=== PATIENT | female | born 1970 | race African-American/Black ===

== ENCOUNTER → 2017-03-02 | Outpatient (CLI) | payer OTHER ==
[2016-06-30 14:00] VITALS: BP 156/95
[~2017-03-02] MED LIST: AMLO5TAB2 PO; CETI10TA22 PO; CIPR250T30 PO; CRESTOR40 MG PO; HYDR-971 PO; HYDR12.53 PO; LISI1TAB7 PO; LISI2.5T PO; LISINOPRIL; LOSA1TAB19 PO; LOSA50TA6 PO; OMEP1CAP24 PO; OMEP20CA9 PO; ONDA4TAB10 SL; PHEN37.53 PO; POTA20TA4 PO; TIZA4CAP3 PO; TRAM-48 PO; ZANAFLEX
--- NOTE | 2017-03-02 15:04 | RAD ---
Right lower extremity deep venous ultrasound 03/02/2017 Indication: Pain x1 week Discussion: Ultrasound evaluation of the veins of the right lower extremity was performed. Evaluation includes color Doppler imaging, evaluation of venous compressibility. Evaluation of augmentable blood flow. No evidence of deep venous thrombosis involving the right lower extremity is identified. Interrogated deep veins are compressible and demonstrate augmentable blood flow. Small popliteal fossa cyst noted. Impression: No evidence of deep venous thrombosis involving the right lower extremity
== END | disposition home or self-care (01) ==
LOC: US 13:44
PROVIDERS: ATTEND Family Medicine
DX: M71.21 Synovial cyst of popliteal space [Baker], right knee (principal); R10.31 Right lower quadrant pain
CPT/HCPCS: 93971

== ENCOUNTER → 2017-10-27 | Outpatient (CLI) | payer OTHER ==
[2016-06-30 14:00] VITALS: BP 156/95
[2017-10-27 15:59] LABS: BASO % 1 % (0-3); EOS # 0.2 x10^3/uL (0.0-0.7); EOS % 3 % (0-3); HEMATOCRIT 41.5 % (36.0-47.0); LYMPH # 1.5 x10^3/uL (1.0-4.8); LYMPH % 25 % (24-48); MEAN CORPUSCULAR HEMOGLOBIN 28 pg (25-35); MEAN CORPUSCULAR HGB CONC 34 g/dL (31-37); MEAN CORPUSCULAR VOLUME 84 fL (79-100); MONO # 0.4 x10^3/uL (0.0-1.1); MONO % 7 % (0-9); NEUT # 3.8 x10^3uL (1.8-7.7); NEUT % 65 % (31-73); PLATELET COUNT 249 x10^3/uL (140-400); RED BLOOD COUNT 4.93 x10^6/uL (3.50-5.40); RED CELL DISTRIBUTION WIDTH 13.7 % (11.5-14.5); WHITE BLOOD COUNT 5.9 x10^3/uL (4.0-11.0)
[2017-10-27 16:06] LABS: ALBUMIN 3.6 g/dL (3.4-5.0); CALCIUM 9.1 mg/dL (8.5-10.1); CREATININE 0.8 mg/dL (0.6-1.0); DIRECT BILIRUBIN 0.1 mg/dL (0.0-0.2); GFR 92.6; POTASSIUM 3.3 mmol/L (3.5-5.1); TOTAL BILIRUBIN 0.4 mg/dL (0.2-1.0); TOTAL PROTEIN 7.8 g/dL (6.4-8.2)
[2017-10-27 17:53] LABS: SEDIMENTATION RATE 22 (0-25)
== END | disposition home or self-care (01) ==
LOC: PMG 15:11
PROVIDERS: ATTEND Physician Assistant
DX: K85.90 Acute pancreatitis without necrosis or infection, unspecified (principal); I10 Essential (primary) hypertension; E11.9 Type 2 diabetes mellitus without complications; E78.00 Pure hypercholesterolemia, unspecified; E87.6 Hypokalemia; K21.9 Gastro-esophageal reflux disease without esophagitis
CPT/HCPCS: 36415; 80048; 80076; 82150; 82977; 83690; 85025; 85651

== ENCOUNTER 2017-11-22 13:07 | Inpatient (IN) | payer OTHER ==
[~2017-11-22] VITALS: Ht 170.2 cm; Wt 136.2 kg
--- NOTE | 2017-11-22 13:28 | PHYS DOC ---
Past History Past Medical History: Diverticulitis, Diabetes, Hypertension, IBS Past Surgical History: Appendectomy, Hysterectomy, Tonsillectomy, Other Alcohol Use: None Drug Use: None Adult General Chief Complaint Chief Complaint: chest pain and abdominal pain. HPI HPI 47-year-old female presenting to the emergency department today with chest pain that started on Monday, November 20. It is sharp shooting pain that is dull and achy. It is nonradiating intermittent and comes and goes. She has a history of diabetes and high blood pressure. Her abdominal pain started yesterday. It is a dull aching pain. It is nonradiating moderate intermittent and associated with black stools that started on Monday. She denies fevers chills nausea vomiting. Review of systems is negative for fevers chills vomiting. She denies loss of consciousness or she denies sweatiness of the skin. All other review of systems is negative unless otherwise noted in history of present illness. ED course: 47-year-old female presenting with chest pain and abdominal pain. She is afebrile on arrival with normal heart rate. On exam her abdomen is soft and nontender. No rebound tenderness or guarding. Lungs are clear bilaterally. Normal heart sounds. She is well-appearing and alert. EKG along with blood work obtained. IV fluids given. EKG shows sinus rhythm with a regular rate. ST segments show mild ST depression in the leads V 5 and V[address] Otherwise no ST segment elevation. Blood work obtained which shows an elevated d-dimer. CBC within normal limits. Glucose is elevated at 196. Patient has known diabetes. Potassium mildly low. We will give the oral potassium repletion here in the emergency department. CT the abdomen below. Differential given by radiologist and could be completely incidental finding. We will refer the patient to outpatient GI for evaluation for this finding. Given her chest pain a and multiple risk factors for heart disease we will admit the patient for serial troponins and cardiac consultation. She was then admitted to Dr. Toth for further treatment and care. Review of Systems Review of Systems SEE ABOVE. Allergies Allergies Allergies Coded Allergies Type Severity Reaction Last Updated Verified No Known Drug Allergies 11/20/13 No Physical Exam Physical Exam SEE ABOVE Constitutional: Well developed, well nourished, no acute distress, non-toxic appearance. HENT: Normocephalic, atraumatic, bilateral external ears normal, oropharynx moist, no oral exudates, nose normal. Eyes: PERRLA, EOMI, conjunctiva normal, no discharge. [] Neck: Normal range of motion, no tenderness, supple, no stridor. Cardiovascular:Heart rate regular rhythm, no murmur Lungs & Thorax: Bilateral breath sounds clear to auscultation Abdomen: Bowel sounds normal, soft, no tenderness, no masses, no pulsatile masses. [] Skin: Warm, dry, no erythema, no rash. Back: No tenderness, no CVA tenderness. [] Extremities: No tenderness, no cyanosis, no clubbing, ROM intact, no edema. Neurologic: Alert and oriented X 3, normal motor function, normal sensory function, no focal deficits noted. [] Psychologic: Affect normal, judgement normal, mood normal. EKG EKG [] Radiology/Procedures Radiology/Procedures IMPRESSION: 1. There is haziness of the central mesentery with several upper limits of normal in size mesenteric lymph nodes. Considerations include sclerosing mesenteritis, sequela of peritonitis, or clinically insignificant incidental finding. 2. Hepatomegaly. Fatty infiltration of the liver. 3. Mild distal colon diverticulosis without diverticulitis. 4. Trace pelvic free fluid. [] Course & Med Decision Making Course & Med Decision Making Pertinent Labs and Imaging studies reviewed. (See chart for details) [] Dragon Disclaimer Dragon Disclaimer This electronic medical record was generated, in whole or in part, using a voice recognition dictation system. Departure Departure: Impression: Primary Impression: Abdominal pain Additional Impressions: Chest pain Hypokalemia Disposition: ADMITTED INPATIENT Admitting Physician: Jane Toth Condition: STABLE Referrals: DULCE MIRAMONTES (PCP) Problem Qualifiers LIZ IWLLIS MD Nov 22, 2017 13:27
[2017-11-22] MEDS ORDERED: IV NORMAL SALINE 500ML 500 ML IV ONE (13:30)
--- NOTE | 2017-11-22 13:30 | EKG ---
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
[2017-11-22 13:54] LABS: BASO % 1 % (0-3); EOS # 0.2 x10^3/uL (0.0-0.7); EOS % 3 % (0-3); HEMATOCRIT 40.4 % (36.0-47.0); HEMOGLOBIN 13.6 g/dL (12.0-15.5); LYMPH # 1.9 x10^3/uL (1.0-4.8); LYMPH % 32 % (24-48); MEAN CORPUSCULAR HEMOGLOBIN 28 pg (25-35); MEAN CORPUSCULAR HGB CONC 34 g/dL (31-37); MEAN CORPUSCULAR VOLUME 85 fL (79-100); MONO # 0.4 x10^3/uL (0.0-1.1); MONO % 7 % (0-9); NEUT # 3.5 x10^3uL (1.8-7.7); NEUT % 58 % (31-73); PLATELET COUNT 246 x10^3/uL (140-400); RED BLOOD COUNT 4.78 x10^6/uL (3.50-5.40); RED CELL DISTRIBUTION WIDTH 13.7 % (11.5-14.5); WHITE BLOOD COUNT 6.1 x10^3/uL (4.0-11.0)
[2017-11-22 14:00] LABS: FECAL OB PT NEGATIVE (NEG)
[2017-11-22] MEDS ORDERED: FAMOTIDINE 20 MG/2 ML VIAL IVP ONE (14:00)
[2017-11-22 14:03] LABS: PREG TEST PT QUAL NEGATIVE (NEG)
[2017-11-22 14:03] LABS: BILIRUBIN,URINE NEG (NEG); CLARITY,URINE CLEAR; COLOR,URINE YELLOW; GLUCOSE,URINE NEG (NEG); NITRITE,URINE NEG (NEG); RBC,URINE 0 /HPF (0-2); UROBILINOGEN,URINE 0.2 mg/dL (0.2 mg/dL)
[2017-11-22 14:04] LABS: BACTERIA,URINE FEW /HPF (0-FEW); SQUAMOUS EPITHELIAL CELL,UR OCC /LPF
[2017-11-22 14:08] LABS: ALBUMIN 3.4 g/dL (3.4-5.0); CALCIUM 9.1 mg/dL (8.5-10.1); CREATININE 0.8 mg/dL (0.6-1.0); DIRECT BILIRUBIN 0.1 mg/dL (0.0-0.2); GFR 92.6; POTASSIUM 3.3 mmol/L (3.5-5.1); TOTAL BILIRUBIN 0.5 mg/dL (0.2-1.0); TOTAL PROTEIN 7.4 g/dL (6.4-8.2)
[2017-11-22] MEDS ORDERED: IOHEXOL 300 MG/ML 75 ML VIAL. IV ONE (14:30)
--- NOTE | 2017-11-22 14:50 | RAD ---
PQRS Compliance Statement: One or more of the following individualized dose reduction techniques were utilized for this examination: 1. Automated exposure control 2. Adjustment of the mA and/or kV according to patient size 3. Use of iterative reconstruction technique CT angiography chest with contrast 11/22/2017 INDICATION: Elevated d-dimer, shortness of breath. COMPARISON: CT chest October 11, 2009. TECHNIQUE: Axial CT images of the chest were obtained after the intravenous administration of 75 cc nonionic contrast. Coronal and sagittal reformats are provided. Maximum intensity projection images of the thoracic vasculature are provided. FINDINGS: The thyroid gland is normal in appearance. There are no pathologically enlarged axillary, mediastinal or hilar lymph nodes. The heart size is within normal limits. Trace pericardial fluid is present, likely physiologic. There is adequate opacification of the pulmonary arterial system. There are no filling defects within the pulmonary arterial system to suggest acute or chronic pulmonary embolus. There are no suspicious solid noncalcified pulmonary nodules. There are no pleural effusions. No pulmonary vascular congestion or pneumothorax. Visualized portions of the upper abdomen are within normal limits. There may be mild hepatic steatosis. Moderate anterior marginal osteophytosis is identified throughout the thoracic spine. No suspicious osseous lesions are visualized. IMPRESSION: There is no evidence for acute or chronic pulmonary embolism. Mild hepatic steatosis. Electronically signed by: Roxana Smith MD (11/22/2017 2:47 PM) [id number]
--- NOTE | 2017-11-22 14:55 | RAD ---
PQRS Compliance Statement: One or more of the following individualized dose reduction techniques were utilized for this examination: 1. Automated exposure control 2. Adjustment of the mA and/or kV according to patient size 3. Use of iterative reconstruction technique CT ABD PELV W/ IV CONTRST ONLY Clinical Indication: ABD PAIN FOR 1 MONTH OFF AND ON Comparison: CT abdomen and pelvis with contrast, June 30, 2016. CT angiogram chest, November 22, 2017. Findings: Please refer to separate dictated CT chest report for lung base findings. Fatty infiltration of the liver. Hepatomegaly. Cholecystectomy. Spleen, pancreas, adrenal glands, abdominal aorta, and kidneys are normal. More conspicuous than on the prior study there is haziness of the central mesentery with several upper limits of normal in size mesenteric lymph nodes. There is a pseudocapsule appearance. Stomach unremarkable. No dilated small bowel. There is motion artifact in the midabdomen. There are a few diverticula of the descending colon. Appendectomy. No colon wall thickening. Urinary bladder is not well distended, accentuating wall thickness. Left adnexal cyst is unchanged from prior study. There is trace pelvic free fluid, probably physiologic if patient is premenopausal. Degenerative spondylosis of the thoracolumbar spine. IMPRESSION: 1. There is haziness of the central mesentery with several upper limits of normal in size mesenteric lymph nodes. Considerations include sclerosing mesenteritis, sequela of peritonitis, or clinically insignificant incidental finding. 2. Hepatomegaly. Fatty infiltration of the liver. 3. Mild distal colon diverticulosis without diverticulitis. 4. Trace pelvic free fluid. Electronically signed by: Mark Najera MD (11/22/2017 2:52 PM) [id number]
[2017-11-22] MEDS ORDERED: POTASSIUM CHLORIDE 20 MEQ/15 ML ORAL LIQUID. PO ONE (16:15)
[2017-11-22] MEDS ORDERED: VALS80TA28 PO (16:21)
[2017-11-22] MEDS ORDERED: TRAM50TA PO (16:21)
[2017-11-22] MEDS ORDERED: GLIM2TAB2 PO (16:21)
[2017-11-22] MEDS ORDERED: METF10003 PO (16:33)
[2017-11-22] MEDS ORDERED: CRESTOR5 MG PO (16:33)
[2017-11-22] MEDS ORDERED: TIZA6CAP PO (16:34)
[2017-11-22 16:48] VITALS: BP 166/99
[2017-11-22] MEDS ORDERED: IV NORMAL SALINE 1,000ML 1,000 ML IV SCH (17:28)
[2017-11-22] MEDS ORDERED: ONDANSETRON PF 4 MG/2 ML VIAL. IV PRN ×2 (17:30→18:00)
[2017-11-22] MEDS ORDERED: MORPHINE SULFATE 2 MG/ML DISP.SYRIN. IV PRN (17:30)
[2017-11-22] MEDS: MORPHINE SULFATE 4 MG/ML DISP.SYRIN. IV PRN ×2 (18:10→22:44)
[2017-11-22] MEDS ORDERED: CONTRAST GIVEN MC PRN (18:15)
[2017-11-22] MEDS: GLIMEPIRIDE 2 MG TABLET PO SCH (18:42)
[2017-11-22] MEDS: amLODIPine BESYLATE 5 MG TABLET PO SCH (18:43)
[2017-11-22] MEDS: LOSARTAN 50 MG TABLET. PO SCH (18:43)
--- NOTE | 2017-11-22 18:48 | NUR ---
PT KARO STEWART WAS ADMITTED TO ROOM 119 FROM ED BY EMS FOR CP/ABDOMINAL PAIN. Pt complaining of 5/10 abdominal pain. States LBM 11/20. Bowel sounds present, lungs clear but diminished. Heart tones normal. SR on tele. Pt up walking to bathroom. Medications restarted. Will continue to monitor.
[2017-11-22 19:30] VITALS: BP 135/84
[2017-11-22 22:51] VITALS: BP 139/85
[2017-11-23] MEDS: MORPHINE SULFATE 4 MG/ML DISP.SYRIN. IV PRN ×4 (02:57→19:47)
[2017-11-23 06:13] LABS: BASO % 1 % (0-3); EOS # 0.3 x10^3/uL (0.0-0.7); EOS % 4 % (0-3); HEMOGLOBIN 13.4 g/dL (12.0-15.5); LYMPH # 1.9 x10^3/uL (1.0-4.8); LYMPH % 31 % (24-48); MEAN CORPUSCULAR HEMOGLOBIN 28 pg (25-35); MEAN CORPUSCULAR HGB CONC 34 g/dL (31-37); MEAN CORPUSCULAR VOLUME 84 fL (79-100); MONO # 0.4 x10^3/uL (0.0-1.1); MONO % 7 % (0-9); NEUT # 3.6 x10^3uL (1.8-7.7); NEUT % 58 % (31-73); PLATELET COUNT 255 x10^3/uL (140-400); RED BLOOD COUNT 4.74 x10^6/uL (3.50-5.40); WHITE BLOOD COUNT 6.1 x10^3/uL (4.0-11.0)
[2017-11-23 06:21] LABS: C REACTIVE PROTEIN 5.1 mg/L (0-3.3)
[2017-11-23 06:25] LABS: ALBUMIN 3.1 g/dL (3.4-5.0); ALBUMIN/GLOBULIN RATIO 0.8 (1.0-1.7); CALCIUM 8.6 mg/dL (8.5-10.1); CREATININE 0.7 mg/dL (0.6-1.0); GFR 108.1; POTASSIUM 3.1 mmol/L (3.5-5.1); TOTAL BILIRUBIN 0.5 mg/dL (0.2-1.0)
[2017-11-23 07:02] VITALS: BP 140/88
[2017-11-23] MEDS ORDERED: POTASSIUM CHLORIDE 20 MEQ TABLET.ER. PO ONE ×2 (07:30→12:00)
[2017-11-23] MEDS: LOSARTAN 50 MG TABLET. PO SCH (08:38)
[2017-11-23] MEDS: ATORVASTATIN CALCIUM 20 MG TABLET PO SCH (08:38)
[2017-11-23] MEDS: amLODIPine BESYLATE 5 MG TABLET PO SCH (08:39)
[2017-11-23] MEDS: tiZANidine 4 MG TABLET. PO PRN ×2 (08:44→22:12)
[2017-11-23] MEDS ORDERED: LOSARTAN 50 MG TABLET. PO SCH (09:00)
[2017-11-23] MEDS ORDERED: GLIMEPIRIDE 2 MG TABLET PO SCH (09:00)
[2017-11-23] MEDS ORDERED: amLODIPine BESYLATE 5 MG TABLET PO SCH (09:00)
[2017-11-23] MEDS: POTASSIUM CHLORIDE 20MEQ 100 ML IV SCH ×2 (09:30→11:30)
--- NOTE | 2017-11-23 09:39 | NUR ---
Pt is alert and oriented x4. Has complaints of middle abdominal pain, back pain and headache. Morphine and tizanidine administered and heating pad applied to back. Held patients oral DM medications due to NPO status. Will continue to monitor.
--- NOTE | 2017-11-23 10:14 | PDOC2 ---
CONSULT Date of Admission DATE: 11/23/17 TIME: 10:08 Reason for Consult: cp Problem List Problems Medical Problems: (1) Abdominal pain Status: Acute (2) Chest pain Status: Acute (3) Hypokalemia Status: Acute History of Present Illness 47 y/o female with history of hypertension, hyperlipidemia and diabetes presents with complaints of abdominal pain and chest pressure. She reports occasional chest heaviness and palpitations which seem to be unrelated to exertion. She is able to exercise on a treadmill without chest discomfort. She reports abdominal pain started day before yesterday and then she began to have chest heaviness and mild dyspnea that waxed and waned. Yesterday am while getting ready for work the discomfort seemed to increase so she presented for evaluation. She denies any congestive symptoms but does report some mild edema in her extremities that worsens towards the end of the day. Past Medical History MPI 10/04/13 large, moderate intensity, reversible mid anterolateral wall defect consistent with ischemia Echo 10/15/13 - Normal LVEF 55-60%, normal wall motion trace MR, trace to mild TR PAS 33 mmHg Cath 10/31/13 LM - ostial 20% LAD - normal LCX - normal RCA - normal Cardiovascular: HTN, hyperipidemia GI: GERD, Other (pancreatitis ) Musculoskeletal: Other (mid to low back pain) Endocrine: Diabetes, Other (thyroid nodules) Past Surgical History unilateral oophorectomy Past Surgical History: Appendectomy, Hysterectomy Family History hypertension, cancer Social History non smoker, social ETOH, no illicit drug use Current Medications Current Medications Sodium Chloride 500 ml @ 0 mls/hr 1X ONCE IV Last administered on 11/22/17at 13 :30; Start 11/22/17 at 13:30; Stop 11/22/17 at 13:38; Status DC Famotidine (Pepcid Vial) 20 mg 1X ONCE IVP Last administered on 11/22/17at 13: 55; Start 11/22/17 at 14:00; Stop 11/22/17 at 14:01; Status DC Fentanyl Citrate (Fentanyl 2ml Vial) 25 mcg 1X ONCE IV Last administered on at 13:56; Start 11/22/17 at 14:00; Stop 11/22/17 at 14:01; Status DC Iohexol (Omnipaque 300 Mg/ml) 75 ml 1X ONCE IV Last administered on 11/22/17at 14:26; Start 11/22/17 at 14:30; Stop 11/22/17 at 14:31; Status DC Fentanyl Citrate (Fentanyl 2ml Vial) 25 mcg PRN Q30MIN PRN IV SEVERE PAIN Last administered on 11/22/17at 16:06; Start 11/22/17 at 16:00 Potassium Chloride (KCl Oral Soln) 40 meq 1X ONCE PO Last administered on 11/22at 16:30; Start 11/22/17 at 16:15; Stop 11/22/17 at 16:16; Status DC Ondansetron HCl (Zofran) 4 mg PRN Q4HRS PRN IV NAUSEA/VOMITING; Start 11/22/17 at 17:30; Stop 11/23/17 at 17:29; Status Cancel Morphine Sulfate (Morphine 2mg Syringe) 2 mg PRN Q2HR PRN IV PAIN; Start at 17:30; Stop 11/23/17 at 17:29; Status Cancel Sodium Chloride 1,000 ml @ 100 mls/hr Q10H IV ; Start 11/22/17 at 17:28; Stop 11/22/17 at 18:06; Status DC Tramadol HCl (Ultram) 50 mg PRN Q6HRS PRN PO PAIN; Start 11/22/17 at 18:00 Amlodipine Besylate (Norvasc) 5 mg DAILY PO ; Start 11/23/17 at 09:00; Stop at 09:00; Status DC Glimepiride (Amaryl) 2 mg DAILY PO ; Start 11/23/17 at 09:00; Stop 11/23/17 at 09:00; Status DC Metformin HCl (Glucophage) 1,000 mg BIDWMEALS PO ; Start 11/24/17 at 17:00 Atorvastatin Calcium (Lipitor) 20 mg DAILY PO Last administered on 11/23/17at 08 :38; Start 11/23/17 at 09:00 Tizanidine HCl (Zanaflex) 6 mg PRN Q8HRS PRN PO MUSCLE SPASMS Last administered on 11/23/17at 08:44; Start 11/22/17 at 18:15 Losartan Potassium (Cozaar) 50 mg DAILY PO ; Start 11/23/17 at 09:00; Stop 7/26 /18 at 09:00; Status DC Morphine Sulfate (Morphine 4mg Syringe) 4 mg PRN Q2HR PRN IV PAIN Last administered on 11/23/17at 07:12; Start 11/22/17 at 18:00; Stop 11/23/17 at 07:16 ; Status DC Ondansetron HCl (Zofran) 4 mg PRN Q6HRS PRN IV NAUSEA/VOMITING; Start 11/22/17 at 18:00 Info (Do NOT chart on this entry -- for MONITORING) 1 each PRN DAILY PRN MC SEE COMMENTS; Start 11/22/17 at 18:15; Stop 11/24/17 at 18:14 Amlodipine Besylate (Norvasc) 5 mg DAILY PO Last administered on 11/23/17at 08: 39; Start 11/22/17 at 18:30 Glimepiride (Amaryl) 2 mg DAILY PO Last administered on 11/22/17at 18:42; Start 11/22/17 at 18:30 Losartan Potassium (Cozaar) 50 mg DAILY PO Last administered on 11/23/17at 08:38 ; Start 11/22/17 at 18:30 Potassium Chloride (Klor-Con) 40 meq 1X ONCE PO ; Start 11/23/17 at 07:30; Stop 11/23/17 at 07:31; Status DC Morphine Sulfate (Morphine 4mg Syringe) 4 mg PRN Q4HRS PRN IV PAIN; Start 11/23 at 07:30 Potassium Chloride 100 ml @ 50 mls/hr Q2H IV ; Start 11/23/17 at 09:30; Stop at 13:29 Active Scripts Active Reported Tizanidine Hcl (Tizanidine HCl) 6 Mg Capsule 6 Mg PO PRN PRN Crestor (Rosuvastatin Calcium) 5 Mg Tablet 1 Tab PO DAILY Metformin Hcl 1,000 Mg Tablet 1 Tab PO BID Tramadol Hcl (Tramadol HCl) 50 Mg Tablet 50 Mg PO PRN PRN Valsartan 80 Mg Tablet 80 Mg PO DAILY Glimepiride 2 Mg Tablet 2 Mg PO DAILY Amlodipine Besylate 5 Mg Tablet 1 Tab PO DAILY Allergies: Coded Allergies: No Known Drug Allergies (Unverified , 11/20/13) Review of System as per HPI with addition of recent black stools and acid reflux General: Alert, Oriented X3, Cooperative, No acute distress HEENT: Atraumatic, EOMI, Mucous membr. moist/pink Lungs: Clear to auscultation Heart: Regular rate, Normal S1, Normal S2 Abdomen: Normal bowel sounds, Soft Extremities: No cyanosis, No edema, Normal pulses Neuro: Normal speech, Strength at 5/5 X4 ext Psych/Mental Status: Mental status NL, Mood NL VITALS Vital Signs Date Time Temp Pulse Resp B/P (MAP) Pulse Ox O2 Delivery O2 Flow Rate FiO2 11/23/17 08:39 69 140/88 11/23/17 08:20 Room Air 11/23/17 07:12 96 11/23/17 07:02 97.8 20 Labs Laboratory Tests Test 11/22/17 13:20 11/22/17 13:30 11/22/17 21:10 11/22/17 23:30 Urine Collection Type Unknown Urine Color Yellow Urine Clarity Clear Urine pH 6.0 Urine Specific [place] 1.020 Urine Protein 30 mg/dl (NEG-TRACE) Urine Glucose (UA) Neg mg/dL (NEG) Urine Ketones (Stick) Neg mg/dL (NEG) Urine Blood Neg (NEG) Urine Nitrite Neg (NEG) Urine Bilirubin Neg (NEG) Urine Urobilinogen Dipstick 0.2 mg/dL (0.2 mg/dL) Urine Leukocyte Esterase Neg (NEG) Urine RBC 0 /HPF (0-2) Urine WBC 1-4 /HPF (0-4) Urine Squamous Epithelial Cells Occ /LPF Urine Bacteria Few /HPF (0-FEW) Urine Mucus Marked /LPF White Blood Count 6.1 x10^3/uL (4.0-11.0) Red Blood Count 4.78 x10^6/uL (3.50-5.40) Hemoglobin 13.6 g/dL (12.0-15.5) Hematocrit 40.4 % (36.0-47.0) Mean Corpuscular Volume 85 fL (79-100) Mean Corpuscular Hemoglobin 28 pg (25-35) Mean Corpuscular Hemoglobin Concent 34 g/dL (31-37) Red Cell Distribution Width 13.7 % (11.5-14.5) Platelet Count 246 x10^3/uL (140-400) Neutrophils (%) (Auto) 58 % (31-73) Lymphocytes (%) (Auto) 32 % (24-48) Monocytes (%) (Auto) 7 % (0-9) Eosinophils (%) (Auto) 3 % (0-3) Basophils (%) (Auto) 1 % (0-3) Neutrophils # (Auto) 3.5 x10^3uL (1.8-7.7) Lymphocytes # (Auto) 1.9 x10^3/uL (1.0-4.8) Monocytes # (Auto) 0.4 x10^3/uL (0.0-1.1) Eosinophils # (Auto) 0.2 x10^3/uL (0.0-0.7) Basophils # (Auto) 0.0 x10^3/uL (0.0-0.2) D-Dimer (Ya) 1.20 mg/L (0.00-0.50) Stool Occult Blood Negative (NEG) Sodium Level 139 mmol/L (136-145) Potassium Level 3.3 mmol/L (3.5-5.1) Chloride Level 102 mmol/L (98-107) Carbon Dioxide Level 30 mmol/L (21-32) Anion Gap 7 (6-14) Blood Urea Nitrogen 9 mg/dL (7-20) Creatinine 0.8 mg/dL (0.6-1.0) Estimated GFR (Cockcroft-Gault) 92.6 Glucose Level 196 mg/dL (70-99) Calcium Level 9.1 mg/dL (8.5-10.1) Total Bilirubin 0.5 mg/dL (0.2-1.0) Direct Bilirubin 0.1 mg/dL (0.0-0.2) Aspartate Amino Transf (AST/SGOT) 21 U/L (15-37) Alanine Aminotransferase (ALT/SGPT) 36 U/L (14-59) Alkaline Phosphatase 113 U/L (46-116) Troponin I Quantitative < 0.017 ng/mL (0-0.055) < 0.017 ng/mL (0-0.055) < 0.017 ng/mL (0-0.055) Total Protein 7.4 g/dL (6.4-8.2) Albumin 3.4 g/dL (3.4-5.0) Lipase 148 U/L (73-393) Serum Test, Qualitative Negative (NEG) Test 11/23/17 05:45 White Blood Count 6.1 x10^3/uL (4.0-11.0) Red Blood Count 4.74 x10^6/uL (3.50-5.40) Hemoglobin 13.4 g/dL (12.0-15.5) Hematocrit 40.0 % (36.0-47.0) Mean Corpuscular Volume 84 fL (79-100) Mean Corpuscular Hemoglobin 28 pg (25-35) Mean Corpuscular Hemoglobin Concent 34 g/dL (31-37) Red Cell Distribution Width 14.0 % (11.5-14.5) Platelet Count 255 x10^3/uL (140-400) Neutrophils (%) (Auto) 58 % (31-73) Lymphocytes (%) (Auto) 31 % (24-48) Monocytes (%) (Auto) 7 % (0-9) Eosinophils (%) (Auto) 4 % (0-3) Basophils (%) (Auto) 1 % (0-3) Neutrophils # (Auto) 3.6 x10^3uL (1.8-7.7) Lymphocytes # (Auto) 1.9 x10^3/uL (1.0-4.8) Monocytes # (Auto) 0.4 x10^3/uL (0.0-1.1) Eosinophils # (Auto) 0.3 x10^3/uL (0.0-0.7) Basophils # (Auto) 0.0 x10^3/uL (0.0-0.2) Erythrocyte Sedimentation Rate 20 (0-25) Sodium Level 139 mmol/L (136-145) Potassium Level 3.1 mmol/L (3.5-5.1) Chloride Level 103 mmol/L (98-107) Carbon Dioxide Level 30 mmol/L (21-32) Anion Gap 6 (6-14) Blood Urea Nitrogen 8 mg/dL (7-20) Creatinine 0.7 mg/dL (0.6-1.0) Estimated GFR (Cockcroft-Gault) 108.1 BUN/Creatinine Ratio 11 (6-20) Glucose Level 181 mg/dL (70-99) Calcium Level 8.6 mg/dL (8.5-10.1) Total Bilirubin 0.5 mg/dL (0.2-1.0) Aspartate Amino Transf (AST/SGOT) 17 U/L (15-37) Alanine Aminotransferase (ALT/SGPT) 35 U/L (14-59) Alkaline Phosphatase 103 U/L (46-116) C-Reactive Protein 5.1 mg/L (0-3.3) Total Protein 7.0 g/dL (6.4-8.2) Albumin 3.1 g/dL (3.4-5.0) Albumin/Globulin Ratio 0.8 (1.0-1.7) Lipase 163 U/L (73-393) Images EKG - sinus rhythm with no acute ischemic findings CT abd/pelvis IMPRESSION: 1. There is haziness of the central mesentery with several upper limits of normal in size mesenteric lymph nodes. Considerations include sclerosing mesenteritis, sequela of peritonitis, or clinically insignificant incidental finding. 2. Hepatomegaly. Fatty infiltration of the liver. 3. Mild distal colon diverticulosis without diverticulitis. 4. Trace pelvic free fluid. Chest CTA - IMPRESSION: There is no evidence for acute or chronic pulmonary embolism. Mild hepatic steatosis. Assessment/Plan 1. Chest pain - PR ruled out, no acute EKG changes. Prior abn MPI with minimal coronary disease by cath as described above. ? secondary to coronary vasospasm. Will check echo and add nitrates. Consider further ischemic workup when medical evaluation/treatment is complete. 2. Hypertension - continue current medications await echo. 3. hyperlipidemia - check lipids 4. abd pain with abn CT as above - per NICOLE REN APRN Nov 23, 2017 10:14
[2017-11-23 10:54] VITALS: BP 128/80
[2017-11-23] MEDS: GLIMEPIRIDE 2 MG TABLET PO SCH (11:50)
[2017-11-23] MEDS: ISOSORBIDE MONONITRATE ER 30 MG TAB.ER.24H PO SCH (11:50)
--- NOTE | 2017-11-23 12:48 | HP ---
ADMIT DATE: 11/22/2017 HISTORY OF PRESENT ILLNESS: The patient is a 47-year-old -[place] female patient who came to the Emergency Room complaining of abdominal pain, mostly in the epigastric and both right upper and left quadrant radiating to the back that started on Monday. Did complain of nausea, but no vomiting. Her last bowel movement was on Monday and it was black according to her. She stated that she had similar pain a month ago. At that time, she was admitted to [facility] and was diagnosed with acute pancreatitis that apparently felt to be secondary to Victoza that was discontinued. She was treated initially with clear liquid diet and then low fat diet. She stated the pain started at rest, comes and goes, it is on more often than off, aggravated by movement, but not associated with any shortness of breath or diaphoresis. She did describe that she has difficulty taking a deep breath, but denied any radiation to her left arm, left shoulder, or left side of the neck. She also has chest pain that also started on Monday that she described as pressure, not associated with any shortness of breath, diaphoresis, or radiation. Again, it comes and goes, made worse by movement. She was extensively investigated in the Emergency Room and has had lab work. Her white cell count was normal. Her chemistry also was unremarkable except for hypokalemia. Her D-dimer was high at 1.2. She underwent CT angio of the chest, which basically showed no evidence of acute or chronic pulmonary embolism. She has mild hepatic steatosis. CT scan of the abdomen and pelvis with IV contrast showed that there is haziness of the central mesentery with several upper limit of normal in size mesenteric lymph nodes. Considerations include sclerosing mesenteritis, E. coli peritonitis, or clinically insignificant incidental finding. She also has hepatomegaly with fatty infiltration of the liver, mild distal colon diverticulosis without diverticulitis and trace pelvic free fluid. She has had 3 sets of cardiac enzymes that has ruled out myocardial infarction. PAST MEDICAL HISTORY: Significant for type 2 diabetes, hypertension, hyperlipidemia. Apparently, she had a stress test done in 2013 which was strongly positive after which she underwent left heart catheterization and showed mostly normal coronary artery disease except 20% stenosis in her left circumflex. PAST SURGICAL HISTORY: Significant for left heart catheterization, cholecystectomy, appendectomy, tubal ligation, right oophorectomy, and hysterectomy. ALLERGIES: She has no known drug allergies. MEDICATIONS: She is currently on following medications: She is on tizanidine 6 mg p.o. q.8 hourly, Crestor 5 mg at bedtime, amlodipine besylate 5 mg daily, valsartan 80 mg daily, tramadol 50 mg as needed, metformin 1000 mg twice a day, and glimepiride 2 mg daily. REVIEW OF SYSTEMS: The patient denied any blurring of vision. Does have glaucoma and she is scheduled for visual field testing as she has floaters. Denied any cataract or diabetic retinopathy or treatment with laser photocoagulation. Denied any earache, tinnitus, or sensorineural deafness. Denied any nosebleeds, stuffy nose or postnasal drip. Did complain of sore throat, but denied any sore tongue, toothache, hoarseness of voice or difficulty swallowing. Did complain of nausea, but no vomiting. Her last bowel movement was last Monday and was dark black. She denied any dysuria, frequency or hematuria. Did complain of chest pain. Denied any shortness of breath, cough, phlegm or hemoptysis. Denied any chills, rigors, or fever. Denied any dizziness, lightheadedness, or vertigo. PHYSICAL EXAMINATION: GENERAL: On arrival to the Emergency Room, she looked well and was clearly in no apparent respiratory distress. No pallor, jaundice, cyanosis, or thyromegaly. No jugular venous distention. No lower limb edema. VITAL SIGNS: Her heart rate was 67, blood pressure was 166/99, temperature was 97.9, respiratory rate was 18, and oxygen saturation was 98%. HEAD, EYES, EARS, NOSE, AND THROAT: Showed normocephalic, atraumatic. NECK: Supple. HEART: Showed normal first and second heart sounds with no gallop, rub, or murmur. CHEST: Clear to auscultation. No crepitation or rhonchi. ABDOMEN: Distended, soft, nontender. No guarding or rigidity. No organomegaly. Hernial orifice intact. Bowel sounds normal. NEUROLOGIC: She was awake, alert, responding appropriately. All cranial nerves intact. She moves extremities without difficulty and according to her, she is able to ambulate without assistance or assistive devices, although she does have osteoarthritis and Quintero cyst in her right knee. LABORATORY DATA: Her lab work on arrival to the Emergency Room showed a white cell count of 6100, hemoglobin 13.6, hematocrit 40, MCV 85, and platelet count of 246,000 with normal manual differential. Her chemistry showed a serum sodium 139, potassium 3.3, chloride 102, bicarbonate 30, anion gap of 7, BUN 9, creatinine 0.8. Estimated GFR was 92 mL per minute. Her glucose was 196, calcium was 9.1. Total bilirubin, AST, ALT, alkaline phosphatase were normal. Total protein 7.4, albumin 3.4. Her lipase was 148. Serum test was negative. Her D-dimer was high 1.2 mg/dL. Urinalysis showed the urine was yellow, clear with a pH of 6, specific gravity of 1.020. There was trace of protein. The urine was negative for glucose, ketones, blood, nitrite, and leukocyte esterase. There was 0 rbc's, 1-4 wbc's, very few bacteria. Her stool for occult blood was negative. As her D-dimer was high and came with chest pain, she underwent CT angio which basically showed that there is no evidence for acute or chronic pulmonary embolism. Did have mild hepatic steatosis and for her abdominal pain, she has had CT scan of the abdomen and pelvis with IV contrast only that showed that there is haziness to the central mesentery with several upper limit of normal in size mesenteric lymph nodes. Consideration includes sclerosing mesenteritis, E. coli peritonitis, and/or clinically insignificant incidental finding. She also was found to have hepatomegaly with fatty infiltration of the liver, mild distal colon diverticulosis without diverticulitis and trace pelvic free fluid. ASSESSMENT AND PLAN: The patient was admitted to consult the cardiology team given that she has had before stress test that was positive and she has multiple risk factors for coronary artery disease. EBONI RAMÍREZ MD DR: MIGUEL A/thomas JOB#: [id number] / [id number]
[2017-11-23 14:55] VITALS: BP 118/71
[2017-11-23] MEDS ORDERED: PERFLUTREN PROTEIN-A MICROSPHR 0.22 MG/ML 3 ML VIAL. IV ONE (15:30)
--- NOTE | 2017-11-23 17:35 | CARD ---
MR#: [id number] Date of Study: 11/23/2017 Ordering Physician: NICOLE SCANLON, Referring Physician: Rafael BRAY: KINA Galo APPROVED REPORT EXAM: Two-dimensional and M-mode echocardiogram with Doppler and color Doppler. Other Information Quality : GoodHR: 61bpm INDICATION Chest Pain RISK FACTORS Obesity 2D DIMENSIONS Left Atrium(2D)2.9 (1.6-4.0cm)IVSd1.6 (0.7-1.1cm) Aortic Root(2D)2.9 (2.0-3.7cm)LVDd4.0 (3.9-5.9cm) LVOT Diameter2.2 (1.8-2.4cm)PWd1.5 (0.7-1.1cm) LVDs2.1 (2.5-4.0cm)FS (%) 47.6 % SV54.7 mlLVEF(%)79.6 (>50%) Aortic Valve AoV Peak Chinmay.159.4cm/sAoV VTI28.8cm AO Peak GR.10.2mmHgLVOT Peak Chinmay.99.0cm/s LVOT VTI 24.45cmAO Mean GR.5mmHg KAMALA (VMAX)2.37bs6LNC (VTI)3.14cm2 Mitral Valve MV E Uqkubsic45.9cm/sMV DECEL CNHT208kh MV A Ovknxffk58.9cm/sE/A Ratio1.3 Pulmonary Valve PV Peak Fljvinqu199.4cm/sPV Peak Grad.5mmHg LEFT VENTRICLE The left ventricle is normal size. There is moderate concentric left ventricular hypertrophy. The lef t ventricular systolic function is normal and the ejection fraction is within normal range. EF 65% Th ere is normal LV segmental wall motion. The left ventricular diastolic function and filling is normal for age. RIGHT VENTRICLE The right ventricle is normal size. The right ventricular systolic function is normal. ATRIA The left atrium size is normal. The right atrium size is normal. The interatrial septum is intact wit h no evidence for an atrial septal defect or patent foramen ovale as noted on 2-D or Doppler imaging. AORTIC VALVE The aortic valve is thickened but opens well. Doppler and Color Flow revealed no significant aortic r egurgitation. There is no significant aortic valvular stenosis. There is no aortic valvular vegetatio n. MITRAL VALVE The mitral valve is thickened but opens well. There is no evidence of mitral valve prolapse. There is no mitral valve stenosis. Doppler and Color-flow revealed trace mitral regurgitation. TRICUSPID VALVE The tricuspid valve is normal in structure and function. Doppler and Color Flow revealed no tricuspid valve regurgitation noted. There is no tricuspid valve prolapse or vegetation. There is no tricuspid valve stenosis. PULMONIC VALVE The pulmonic valve is not well visualized. Doppler and Color Flow revealed trace to mild pulmonic mayuri vular regurgitation. There is no pulmonic valvular stenosis. GREAT VESSELS The aortic root is normal in size. The IVC was not visualized. PERICARDIAL EFFUSION There is no pleural effusion. There is no evidence of significant pericardial effusion. Critical Notification Critical Value: No <Conclusion> The left ventricular systolic function is normal and the ejection fraction is within normal range. EF 65% There is normal LV segmental wall motion. Signed by : Dontrell Clark, Electronically Approved : 11/23/2017 17:34:30
[2017-11-23 20:21] VITALS: BP 114/71
[2017-11-23] MEDS: traMADol 50 MG TABLET PO PRN (22:12)
[2017-11-23 22:54] VITALS: BP 126/78
[2017-11-24 06:10] VITALS: BP 114/75
[2017-11-24] MEDS: MORPHINE SULFATE 4 MG/ML DISP.SYRIN. IV PRN (06:27)
[2017-11-24] MEDS ORDERED: ISOSORBIDE MONONITRATE ER 30 MG TAB.ER.24H PO SCH (09:00)
[2017-11-24 09:06] LABS: CALCIUM 9.1 mg/dL (8.5-10.1); CREATININE 0.9 mg/dL (0.6-1.0); GFR 80.9; POTASSIUM 3.8 mmol/L (3.5-5.1)
--- NOTE | 2017-11-24 09:09 | PDOC ---
PROGRESS NOTES Diagnosis Problem Problems Medical Problems: (1) Abdominal pain Status: Acute (2) Chest pain Status: Acute (3) Hypokalemia Status: Acute Assessment Problems Medical Problems: (1) Abdominal pain Status: Acute (2) Chest pain Status: Acute (3) Hypokalemia Status: Acute 1. Chest pain - SC ruled out, no acute EKG changes. Echo with normal LV function and wall motion. Prior abnormal MPI followed by cardiac cath which failed to reveal any significant stenosis. Abnormality on MPI possibly secondary to coronary vasospasm. Nitrates added to medical regimen. Plan for outpatient follow up in office 4 weeks after discharge and will re-evaluate symptoms at that time and consider further ischemic workup. If chest pain reoccurs despite antianginal therapy, plan for cardiac cath. 2. Hypertension - controlled on current therapy. 3. Hyperlipidemia - uncontrolled. increase statin and repeat lipids outpatient in 6-8 weeks. 4. abd pain / low grade temp - per PCP 5. hypokalemia - replaced yesterday, labs this am pending. Subjective no new complaints. some continued chest discomfort that is non exertional and has been constant but is slowly improving. no dyspnea. continued abdominal discomfort. Objective Echo - The left ventricular systolic function is normal and the ejection fraction is within normal range. EF 65% There is normal LV segmental wall motion. Vital Signs Date Time Temp Pulse Resp B/P (MAP) Pulse Ox O2 Delivery O2 Flow Rate FiO2 11/24/17 07:46 94 Room Air 11/24/17 06:27 18 11/24/17 06:10 99.7 80 114/75 (88) Intake and Output 11/24/17 07:00 Intake Total 1200 ml Output Total 1650 ml Balance -450 ml Intake Oral 1200 ml Output Urine Total 1650 ml # Voids 2 # Bowel Movements 1 Abdomen: Normal bowel sounds, Soft Heart: Regular rate, Normal S1, Normal S2 Extremities: No cyanosis, No edema, Normal pulses General: Alert, Oriented X3, Cooperative, No acute distress HEENT: Atraumatic, EOMI Lungs: Clear to auscultation, Normal air movement Neuro: Normal speech, Strength at 5/5 X4 ext Psych/Mental Status: Mental status NL, Mood NL Review of Relevant I have reviewed the following items re (where applicable) has been applied. Labs Laboratory Tests Test 11/22/17 13:20 11/22/17 13:30 11/22/17 21:10 11/22/17 23:30 Urine Collection Type Unknown Urine Color Yellow Urine Clarity Clear Urine pH 6.0 Urine Specific [place] 1.020 Urine Protein 30 mg/dl (NEG-TRACE) Urine Glucose (UA) Neg mg/dL (NEG) Urine Ketones (Stick) Neg mg/dL (NEG) Urine Blood Neg (NEG) Urine Nitrite Neg (NEG) Urine Bilirubin Neg (NEG) Urine Urobilinogen Dipstick 0.2 mg/dL (0.2 mg/dL) Urine Leukocyte Esterase Neg (NEG) Urine RBC 0 /HPF (0-2) Urine WBC 1-4 /HPF (0-4) Urine Squamous Epithelial Cells Occ /LPF Urine Bacteria Few /HPF (0-FEW) Urine Mucus Marked /LPF White Blood Count 6.1 x10^3/uL (4.0-11.0) Red Blood Count 4.78 x10^6/uL (3.50-5.40) Hemoglobin 13.6 g/dL (12.0-15.5) Hematocrit 40.4 % (36.0-47.0) Mean Corpuscular Volume 85 fL (79-100) Mean Corpuscular Hemoglobin 28 pg (25-35) Mean Corpuscular Hemoglobin Concent 34 g/dL (31-37) Red Cell Distribution Width 13.7 % (11.5-14.5) Platelet Count 246 x10^3/uL (140-400) Neutrophils (%) (Auto) 58 % (31-73) Lymphocytes (%) (Auto) 32 % (24-48) Monocytes (%) (Auto) 7 % (0-9) Eosinophils (%) (Auto) 3 % (0-3) Basophils (%) (Auto) 1 % (0-3) Neutrophils # (Auto) 3.5 x10^3uL (1.8-7.7) Lymphocytes # (Auto) 1.9 x10^3/uL (1.0-4.8) Monocytes # (Auto) 0.4 x10^3/uL (0.0-1.1) Eosinophils # (Auto) 0.2 x10^3/uL (0.0-0.7) Basophils # (Auto) 0.0 x10^3/uL (0.0-0.2) D-Dimer (Ya) 1.20 mg/L (0.00-0.50) Stool Occult Blood Negative (NEG) Sodium Level 139 mmol/L (136-145) Potassium Level 3.3 mmol/L (3.5-5.1) Chloride Level 102 mmol/L (98-107) Carbon Dioxide Level 30 mmol/L (21-32) Anion Gap 7 (6-14) Blood Urea Nitrogen 9 mg/dL (7-20) Creatinine 0.8 mg/dL (0.6-1.0) Estimated GFR (Cockcroft-Gault) 92.6 Glucose Level 196 mg/dL (70-99) Calcium Level 9.1 mg/dL (8.5-10.1) Total Bilirubin 0.5 mg/dL (0.2-1.0) Direct Bilirubin 0.1 mg/dL (0.0-0.2) Aspartate Amino Transf (AST/SGOT) 21 U/L (15-37) Alanine Aminotransferase (ALT/SGPT) 36 U/L (14-59) Alkaline Phosphatase 113 U/L (46-116) Troponin I Quantitative < 0.017 ng/mL (0-0.055) < 0.017 ng/mL (0-0.055) < 0.017 ng/mL (0-0.055) Total Protein 7.4 g/dL (6.4-8.2) Albumin 3.4 g/dL (3.4-5.0) Lipase 148 U/L (73-393) Serum Test, Qualitative Negative (NEG) Test 11/23/17 05:45 White Blood Count 6.1 x10^3/uL (4.0-11.0) Red Blood Count 4.74 x10^6/uL (3.50-5.40) Hemoglobin 13.4 g/dL (12.0-15.5) Hematocrit 40.0 % (36.0-47.0) Mean Corpuscular Volume 84 fL (79-100) Mean Corpuscular Hemoglobin 28 pg (25-35) Mean Corpuscular Hemoglobin Concent 34 g/dL (31-37) Red Cell Distribution Width 14.0 % (11.5-14.5) Platelet Count 255 x10^3/uL (140-400) Neutrophils (%) (Auto) 58 % (31-73) Lymphocytes (%) (Auto) 31 % (24-48) Monocytes (%) (Auto) 7 % (0-9) Eosinophils (%) (Auto) 4 % (0-3) Basophils (%) (Auto) 1 % (0-3) Neutrophils # (Auto) 3.6 x10^3uL (1.8-7.7) Lymphocytes # (Auto) 1.9 x10^3/uL (1.0-4.8) Monocytes # (Auto) 0.4 x10^3/uL (0.0-1.1) Eosinophils # (Auto) 0.3 x10^3/uL (0.0-0.7) Basophils # (Auto) 0.0 x10^3/uL (0.0-0.2) Erythrocyte Sedimentation Rate 20 (0-25) Sodium Level 139 mmol/L (136-145) Potassium Level 3.1 mmol/L (3.5-5.1) Chloride Level 103 mmol/L (98-107) Carbon Dioxide Level 30 mmol/L (21-32) Anion Gap 6 (6-14) Blood Urea Nitrogen 8 mg/dL (7-20) Creatinine 0.7 mg/dL (0.6-1.0) Estimated GFR (Cockcroft-Gault) 108.1 BUN/Creatinine Ratio 11 (6-20) Glucose Level 181 mg/dL (70-99) Calcium Level 8.6 mg/dL (8.5-10.1) Total Bilirubin 0.5 mg/dL (0.2-1.0) Aspartate Amino Transf (AST/SGOT) 17 U/L (15-37) Alanine Aminotransferase (ALT/SGPT) 35 U/L (14-59) Alkaline Phosphatase 103 U/L (46-116) C-Reactive Protein 5.1 mg/L (0-3.3) Total Protein 7.0 g/dL (6.4-8.2) Albumin 3.1 g/dL (3.4-5.0) Albumin/Globulin Ratio 0.8 (1.0-1.7) Triglycerides Level 177 mg/dL (0-150) Cholesterol Level 216 mg/dL (0-200) LDL Cholesterol, Calculated 149 mg/dL (0-100) VLDL Cholesterol, Calculated 35 mg/dL (0-40) Non-HDL Cholesterol Calculated 184 mg/dL (0-129) HDL Cholesterol 32 mg/dL (40-60) Cholesterol/HDL Ratio 6.0 Lipase 163 U/L (73-393) Medications Current Medications Sodium Chloride 500 ml @ 0 mls/hr 1X ONCE IV Last administered on 11/22/17at 13 :30; Start 11/22/17 at 13:30; Stop 11/22/17 at 13:38; Status DC Famotidine (Pepcid Vial) 20 mg 1X ONCE IVP Last administered on 11/22/17at 13: 55; Start 11/22/17 at 14:00; Stop 11/22/17 at 14:01; Status DC Fentanyl Citrate (Fentanyl 2ml Vial) 25 mcg 1X ONCE IV Last administered on at 13:56; Start 11/22/17 at 14:00; Stop 11/22/17 at 14:01; Status DC Iohexol (Omnipaque 300 Mg/ml) 75 ml 1X ONCE IV Last administered on 11/22/17at 14:26; Start 11/22/17 at 14:30; Stop 11/22/17 at 14:31; Status DC Fentanyl Citrate (Fentanyl 2ml Vial) 25 mcg PRN Q30MIN PRN IV SEVERE PAIN Last administered on 11/22/17at 16:06; Start 11/22/17 at 16:00 Potassium Chloride (KCl Oral Soln) 40 meq 1X ONCE PO Last administered on 11/22at 16:30; Start 11/22/17 at 16:15; Stop 11/22/17 at 16:16; Status DC Ondansetron HCl (Zofran) 4 mg PRN Q4HRS PRN IV NAUSEA/VOMITING; Start 11/22/17 at 17:30; Stop 11/23/17 at 17:29; Status Cancel Morphine Sulfate (Morphine 2mg Syringe) 2 mg PRN Q2HR PRN IV PAIN; Start at 17:30; Stop 11/23/17 at 17:29; Status Cancel Sodium Chloride 1,000 ml @ 100 mls/hr Q10H IV ; Start 11/22/17 at 17:28; Stop 11/22/17 at 18:06; Status DC Tramadol HCl (Ultram) 50 mg PRN Q6HRS PRN PO PAIN Last administered on at 22:12; Start 11/22/17 at 18:00 Amlodipine Besylate (Norvasc) 5 mg DAILY PO ; Start 11/23/17 at 09:00; Stop at 09:00; Status DC Glimepiride (Amaryl) 2 mg DAILY PO ; Start 11/23/17 at 09:00; Stop 11/23/17 at 09:00; Status DC Metformin HCl (Glucophage) 1,000 mg BIDWMEALS PO ; Start 11/24/17 at 17:00 Atorvastatin Calcium (Lipitor) 20 mg DAILY PO Last administered on 11/23/17at 08 :38; Start 11/23/17 at 09:00 Tizanidine HCl (Zanaflex) 6 mg PRN Q8HRS PRN PO MUSCLE SPASMS Last administered on 11/23/17at 22:12; Start 11/22/17 at 18:15 Losartan Potassium (Cozaar) 50 mg DAILY PO ; Start 11/23/17 at 09:00; Stop 11/23 at 09:00; Status DC Morphine Sulfate (Morphine 4mg Syringe) 4 mg PRN Q2HR PRN IV PAIN Last administered on 11/23/17at 07:12; Start 11/22/17 at 18:00; Stop 11/23/17 at 07:16 ; Status DC Ondansetron HCl (Zofran) 4 mg PRN Q6HRS PRN IV NAUSEA/VOMITING; Start 11/22/17 at 18:00 Info (Do NOT chart on this entry -- for MONITORING) 1 each PRN DAILY PRN MC SEE COMMENTS; Start 11/22/17 at 18:15; Stop 11/24/17 at 18:14 Amlodipine Besylate (Norvasc) 5 mg DAILY PO Last administered on 11/23/17at 08: 39; Start 11/22/17 at 18:30 Glimepiride (Amaryl) 2 mg DAILY PO Last administered on 11/23/17at 11:50; Start 11/22/17 at 18:30 Losartan Potassium (Cozaar) 50 mg DAILY PO Last administered on 11/23/17at 08:38 ; Start 11/22/17 at 18:30 Potassium Chloride (Klor-Con) 40 meq 1X ONCE PO Last administered on at 11:49; Start 11/23/17 at 07:30; Stop 11/23/17 at 07:31; Status DC Morphine Sulfate (Morphine 4mg Syringe) 4 mg PRN Q4HRS PRN IV PAIN Last administered on 11/24/17at 06:27; Start 11/23/17 at 07:30 Potassium Chloride 100 ml @ 50 mls/hr Q2H IV ; Start 11/23/17 at 09:30; Stop at 13:29; Status DC Isosorbide Mononitrate (Imdur) 30 mg DAILY PO ; Start 11/24/17 at 09:00; Stop at 09:00; Status DC Isosorbide Mononitrate (Imdur) 30 mg DAILY PO Last administered on 11/23/17at 11 :50; Start 11/23/17 at 12:00 Potassium Chloride (Klor-Con) 40 meq 1X ONCE PO ; Start 11/23/17 at 12:00; Stop 11/23/17 at 12:01; Status DC Perflutren Protein Type A Microsphe (Optison) 0.66 mg 1X ONCE IV ; Start at 15:30; Stop 11/23/17 at 15:31; Status DC Active Scripts Active Reported Tizanidine Hcl (Tizanidine HCl) 6 Mg Capsule 6 Mg PO PRN PRN Crestor (Rosuvastatin Calcium) 5 Mg Tablet 1 Tab PO DAILY Metformin Hcl 1,000 Mg Tablet 1 Tab PO BID Tramadol Hcl (Tramadol HCl) 50 Mg Tablet 50 Mg PO PRN PRN Valsartan 80 Mg Tablet 80 Mg PO DAILY Glimepiride 2 Mg Tablet 2 Mg PO DAILY Amlodipine Besylate 5 Mg Tablet 1 Tab PO DAILY Vitals/I & O Vital Sign - Last 24 Hours 11/23/17 11/23/17 11/23/17 11/23/17 10:54 11:50 14:02 14:55 Temp 98.4 98.5 Pulse 69 69 68 Resp 20 20 B/P (MAP) 128/80 (96) 128/80 118/71 (87) Pulse Ox 100 100 95 O2 Delivery Room Air Room Air Room Air 11/23/17 11/23/17 11/23/17 11/23/17 19:47 20:00 20:21 20:57 Temp 98.4 Pulse 79 Resp 20 18 B/P (MAP) 114/71 (85) Pulse Ox 95 94 O2 Delivery Room Air Room Air Room Air 11/23/17 11/23/17 11/23/17 11/24/17 22:12 22:54 23:30 06:10 Temp 99.4 99.7 Pulse 72 80 Resp 18 20 20 18 B/P (MAP) 126/78 (94) 114/75 (88) Pulse Ox 94 94 94 94 O2 Delivery Room Air Room Air Room Air Room Air 11/24/17 11/24/17 06:27 07:46 Resp 18 Pulse Ox 94 O2 Delivery Room Air Room Air Intake and Output 11/23/17 11/23/17 11/24/17 15:00 23:00 07:00 Intake Total 400 ml 800 ml Output Total 1150 ml 300 ml 200 ml Balance -750 ml 500 ml -200 ml NICOLE SCANLON APRN Nov 24, 2017 09:09
[2017-11-24 09:12] LABS: HEMATOCRIT 39.1 % (36.0-47.0); HEMOGLOBIN 13.2 g/dL (12.0-15.5); RED BLOOD COUNT 4.62 x10^6/uL (3.50-5.40); RED CELL DISTRIBUTION WIDTH 13.8 % (11.5-14.5); WHITE BLOOD COUNT 7.6 x10^3/uL (4.0-11.0)
[2017-11-24] MEDS: LOSARTAN 50 MG TABLET. PO SCH (09:35)
[2017-11-24] MEDS: ATORVASTATIN CALCIUM 20 MG TABLET PO SCH (09:35)
[2017-11-24] MEDS: ISOSORBIDE MONONITRATE ER 30 MG TAB.ER.24H PO SCH (09:35)
[2017-11-24] MEDS: GLIMEPIRIDE 2 MG TABLET PO SCH (09:35)
[2017-11-24] MEDS: amLODIPine BESYLATE 5 MG TABLET PO SCH (09:35)
[2017-11-24] MEDS ORDERED: ATORVASTATIN CALCIUM 20 MG TABLET PO SCH (10:00)
[2017-11-24 11:15] VITALS: BP 169/76
[2017-11-24] MEDS: traMADol 50 MG TABLET PO PRN ×2 (12:03→17:17)
--- NOTE | 2017-11-24 13:36 | RAD ---
CT of the head without contrast, 11/24/2017: HISTORY: Headaches The ventricles are within normal limits in size. There is no shift of the midline structures. There is no evidence of acute intracranial hemorrhage or mass effect. IMPRESSION: No acute intracranial abnormality is detected. Electronically signed by: Jose Clark MD (11/24/2017 1:32 PM) [facility]
[2017-11-24 15:19] VITALS: BP 135/75
[2017-11-24] MEDS ORDERED: metFORMIN 500 MG TABLET PO SCH (17:00)
--- NOTE | 2017-11-24 18:07 | NUR ---
NSG NOTE; DISCHARGE VERBAL AND WRITTEN DISCHARGE INSTRUCTIONS GIVEN TO PT WITH VERBAL UNDERSTANDING WRITTEN RX GIVEN TO PT DISCHARGE TO HOME AT 1725 VIA AMB ACCOMP BY FAMILY
--- NOTE | 2017-11-24 20:09 | DS ---
DATE OF DISCHARGE: 11/24/2017 HISTORY OF PRESENT ILLNESS: This patient is a 47-year-old -[place] female patient who was admitted with a complaint of abdominal pain, mostly in the epigastric area involving both right upper quadrant. She also complained of lower chest pain. She was extensively investigated and her first set of cardiac enzyme was 0.017 and her EKG did not show any evidence of ST segment elevation or depression and therefore, the patient was admitted, has had 2 more sets of cardiac enzymes. We did consult the cardiology team and she had 2 more sets of cardiac enzymes that were negative. Her echocardiogram was done and showed that her left ventricular systolic function is normal with ejection fraction of 65%, normal left ventricular segmental wall motion. Cardiology team has recommended to start her on isosorbide mononitrate and increase her Lipitor to 40 mg at bedtime, to be followed as an outpatient. As she complained of abdominal pain, she did have a CT scan of the abdomen, which basically showed that there is haziness of the central mesentery and several upper limits of normal in size mesenteric lymph nodes, consideration include sclerosing mesenteritis, sequelae of peritonitis or clinically insignificant incidental finding; however, there is no evidence of any obstruction, no dilated small bowel. There are few diverticula of the descending colon, appendectomy. No colon wall thickening and there is only hepatomegaly with fatty infiltration, mild distal colon diverticulosis without diverticulitis and therefore, a decision was made to discharge her home to continue with all her current medication to follow with Dr. Clark and also we made an appointment for her to see Dr. Block, the assistant track and field coach regarding the finding on her CT scan. She also complained of severe headache. We did a CT scan of the head, which showed the ventricles are within normal limits in size. There is no shift of the midline structure. There is no evidence of acute intracranial hemorrhage or mass effect and therefore, the patient was discharged home. PHYSICAL EXAMINATION: GENERAL: On examining her this afternoon, she looked well and was clearly in no apparent respiratory distress. No pallor, jaundice, cyanosis, or thyromegaly. No jugular venous distension. No limb edema. VITAL SIGNS: Her heart rate was 80, blood pressure was 114/75, temperature was 98.6, respiratory rate 20, and oxygen saturation was 95% on room air. HEAD, EYES, EARS, NOSE AND THROAT: Normocephalic, atraumatic. NECK: Supple. HEART: Showed normal first and second heart sounds with no gallop, rub or murmur. CHEST: Clear to auscultation. No crepitation or rhonchi. ABDOMEN: Distended, soft, nontender. No guarding or rigidity. No organomegaly. Hernial orifice intact. Bowel sounds normal. NEUROLOGIC: She is awake, alert, responding appropriately. Cranial nerves intact. She moves extremities without difficulty. She ambulates without assistance or assistive devices. LABORATORY WORK: This morning showed a serum sodium 137, potassium 3.8, chloride 104, bicarbonate 29, anion gap of 4, BUN 11, creatinine 0.9, estimated GFR was 81 mL per minute. Her glucose was 197, calcium was 9.1. Total bilirubin, AST, ALT, alkaline phosphatase were normal. Total protein 7, albumin was 3.1. Her total serum triglycerides were 177, total cholesterol was 116, LDL was 149, VLDL was 35, HDL cholesterol was 32 and the ratio of 6. Her white cell count was 7600, hemoglobin 13, hematocrit 39, MCV 85 and platelet count 260,000. Her sedimentation rate was 20 mm/hour and C-reactive protein was 5.1 mg/dL. The D-dimer of 1.2 and urinalysis was essentially unremarkable. CT angio of the chest showed there is no evidence of [id number] pulmonary embolism. The thyroid gland is normal in appearance. There is no pathologically enlarged axillary, mediastinal or hilar lymphadenopathy. The heart size is within normal limits. Trace pericardial fluid is present, likely physiologic. There are adequate opacification of the pulmonary arterial system. There are no filling defects within the pulmonary arterial system to suggest acute or chronic pulmonary emboli. There are no suspicious solid noncalcified pulmonary nodules. There are no pleural effusions, no vascular congestion or pneumothorax visualized, portion of the upper abdomen are within normal limits. DISCHARGE MEDICATIONS: She was discharged home to continue on following medications: Amlodipine besylate 5 mg daily, glimepiride 2 mg once a day, metformin 1000 mg twice a day, Crestor 5 mg and it was changed to Lipitor 40 mg once a day, tizanidine 6 mg daily as needed, tramadol 50 mg, and valsartan 80 mg once a day. She is also discharged on Imdur 30 mg once a day. FINAL DISCHARGE DIAGNOSES: 1. Chest pain, myocardial infarction ruled out. 2. Hypokalemia, resolved. Her most recent serum potassium is up to 3.8. 3. Hypertension, well controlled. 4. Hyperlipidemia, not optimally controlled, so I have increased her Lipitor to 40 mg. 5. Abdominal pain, no evidence of obstruction, no surgical abdomen. She has findings that could be due to idiopathic sclerosing mesenteritis or sequelae of peritonitis and/or incidental finding for which we arranged for her to be seen by the assistant track and field coach. EBONI RAMÍREZ MD DR: MIGUEL A/thomas JOB#: [id number] / [id number]
== END 2017-11-24 17:25 | disposition home or self-care (01) | DRG 254 ==
LOC: ER 13:07 → 1 SOUTH 16:07
PROVIDERS: ADMIT Internal Medicine; ATTEND Internal Medicine
DX: K65.4 Sclerosing mesenteritis (principal); E11.9 Type 2 diabetes mellitus without complications; E87.6 Hypokalemia; I25.111 Atherosclerotic heart disease of native coronary artery with angina pectoris with documented spasm; E78.5 Hyperlipidemia, unspecified; I10 Essential (primary) hypertension; K21.9 Gastro-esophageal reflux disease without esophagitis; Z82.49 Family history of ischemic heart disease and other diseases of the circulatory system; Z90.49 Acquired absence of other specified parts of digestive tract; Z90.710 Acquired absence of both cervix and uterus; Z90.721 Acquired absence of ovaries, unilateral; Z79.899 Other long term (current) drug therapy
CPT/HCPCS: 36415; 70450; 71275; 74177; 80048; 80053; 80061; 80076; 81001; 82274; 83690; 84484; 84703; 85025; 85027; 85379; 85651; 86140; 93005; 93306; 96374; 96375; 96376; J2270; J3010; J7040; Q9967; S0028; 99285-25

== ENCOUNTER → 2017-12-13 | Outpatient (CLI) | payer OTHER ==
[2017-11-24 15:19] VITALS: BP 135/75
[~2017-12-13] MED LIST changes: +BARIUM SULFATE 60% 355 ML SUSP PO ONE; +CRESTOR5 MG PO; +GLIM2TAB2 PO; +METF10003 PO; +TIZA6CAP PO; +TRAM50TA PO; +VALS80TA28 PO
--- NOTE | 2017-12-13 18:00 | RAD ---
Small bowel follow-through study 12/13/2017 CLINICAL HISTORY: Abdominal pain with diarrhea. TECHNIQUE: A small bowel follow-through study was performed under radiographic control. No fluoroscopy was provided. FINDINGS: Comparison is made to a CT scan of the abdomen and pelvis dated 06/30/2016. 2 AP supine digital radiographs abdomen/pelvis were obtained as business information analyst radiographs. Surgical clips are seen within the right upper quadrant of the abdomen consistent with a cholecystectomy. The abdominal bowel gas pattern is nonobstructive. Moderate amount stool is seen throughout the colon. Degenerative changes are seen involving lower thoracic and throughout the lumbar spine and both hips. The mucosal pattern of the duodenum, jejunum, ileum and terminal ileum is within normal limits. The cecum is in its normal location within the right lower quadrant abdomen. The small bowel transit time is within normal limits. No extrinsic mass effect upon the small intestine is seen. IMPRESSION: Negative study. Electronically signed by: Primitivo Silva MD (12/13/2017 5:56 PM) [facility]
== END | disposition home or self-care (01) ==
LOC: RAD 08:04
PROVIDERS: ATTEND Internal Medicine Gastroenterology
DX: R10.84 Generalized abdominal pain (principal); R19.7 Diarrhea, unspecified; I10 Essential (primary) hypertension; E11.9 Type 2 diabetes mellitus without complications; E78.5 Hyperlipidemia, unspecified; E78.00 Pure hypercholesterolemia, unspecified; E87.6 Hypokalemia; I25.111 Atherosclerotic heart disease of native coronary artery with angina pectoris with documented spasm; K21.9 Gastro-esophageal reflux disease without esophagitis; Z90.721 Acquired absence of ovaries, unilateral; Z90.49 Acquired absence of other specified parts of digestive tract; Z82.49 Family history of ischemic heart disease and other diseases of the circulatory system
CPT/HCPCS: 74250

== ENCOUNTER 2018-01-14 15:21 | Emergency (ER) | payer OTHER ==
[~2018-01-14 15:21] MED LIST changes: -AMLO5TAB2 PO; +AMLO5TAB7 PO; -BARIUM SULFATE 60% 355 ML SUSP PO ONE; -LOSA50TA6 PO; +LOSA50TA7 PO; -METF10003 PO; +METF10007 PO
--- NOTE | 2018-01-14 15:33 | EKG ---
[address] [address] Test Date: 2018-01-14 Test Time: 15:29:13 Pat Name: KARO STEWART Department: Room: Gender: F Recruiting Operations Consultant: : [id number] Requested By: GARTH OZUNA Order Number: [id number] Reading MD: Derek Duncan Measurements Intervals [place] Rate: 75 P: 44 MA: 156 QRS: 56 QRSD: 82 T: 24 QT: 390 QTc: 438 Interpretive Statements SINUS RHYTHM NORMAL ECG Electronically Signed On 01-15-2018 11:27:51 CDT by Derek Duncan
[2018-01-14 15:45] VITALS: BP 155/79
[2018-01-14 15:58] LABS: BASO # 0.1 x10^3/uL (0.0-0.2); BASO % 1 % (0-3); EOS # 0.2 x10^3/uL (0.0-0.7); EOS % 3 % (0-3); HEMATOCRIT 41.5 % (36.0-47.0); HEMOGLOBIN 14.2 g/dL (12.0-15.5); LYMPH # 1.7 x10^3/uL (1.0-4.8); LYMPH % 25 % (24-48); MEAN CORPUSCULAR HEMOGLOBIN 29 pg (25-35); MEAN CORPUSCULAR HGB CONC 34 g/dL (31-37); MEAN CORPUSCULAR VOLUME 85 fL (79-100); MONO # 0.5 x10^3/uL (0.0-1.1); MONO % 7 % (0-9); NEUT # 4.4 x10^3uL (1.8-7.7); NEUT % 65 % (31-73); PLATELET COUNT 240 x10^3/uL (140-400); WHITE BLOOD COUNT 6.8 x10^3/uL (4.0-11.0)
[2018-01-14 16:08] LABS: ALBUMIN 3.5 g/dL (3.4-5.0); ALBUMIN/GLOBULIN RATIO 0.9 (1.0-1.7); CALCIUM 8.7 mg/dL (8.5-10.1); CREATININE 0.7 mg/dL (0.6-1.0); GFR 108.1; POTASSIUM 3.3 mmol/L (3.5-5.1); TOTAL BILIRUBIN 0.4 mg/dL (0.2-1.0); TOTAL PROTEIN 7.6 g/dL (6.4-8.2)
--- NOTE | 2018-01-14 16:21 | RAD ---
Portable chest, 01/14/2018: HISTORY: Chest pain The heart size is normal. The lungs are clear. There is no evidence of pleural fluid. Moderate spurring is present in the spine. IMPRESSION: No acute cardiopulmonary abnormality is detected. Electronically signed by: Jose Clark MD (01/14/2018 4:17 PM) [facility]
[2018-01-14] MEDS ORDERED: KETOROLAC 30 MG/ML VIAL. ONE (17:12)
[2018-01-14] MEDS ORDERED: METOCLOPRAMIDE HCL 10 MG/2 ML VIAL. ONE (17:12)
[2018-01-14] MEDS ORDERED: diphenhydrAMINE 50 MG/ML VIAL ONE (17:12)
[2018-01-14] MEDS ORDERED: IV NORMAL SALINE 1,000ML 1,000 ML IV ONE (17:15)
[2018-01-14] MEDS ORDERED: METOCLOPRAMIDE HCL 10 MG/2 ML VIAL. IV ONE (17:15)
[2018-01-14] MEDS ORDERED: KETOROLAC 30 MG/ML VIAL. IV ONE (17:15)
[2018-01-14] MEDS ORDERED: diphenhydrAMINE 50 MG/ML VIAL IVP ONE (17:15)
--- NOTE | 2018-01-14 18:26 | PHYS DOC ---
Past History Past Medical History: Arthritis, Diabetes, High Cholesterol, Hypertension, IBS , Pancreatitis Past Surgical History: Appendectomy, Cholecystectomy, Hysterectomy Alcohol Use: None Drug Use: None Adult General Chief Complaint Chief Complaint: CHEST PAIN HPI HPI 47-year-old female presents with chest pain and headache. Patient states yesterday she began have a frontal headache toward the evening. Today the patient wakes up and has a central chest pain that she describes as a pressure that radiates to the left side of her chest. The pain at its worst was about a 6 out of 10, it is now about a 3. Patient denies diaphoresis but admits that it feels like she has slight shortness of breath. When the chest pain started, the patient was just sitting in a chair. The patient is scheduled for a stress test tomorrow or the next day as an outpatient. She has had a catheter in the past 3 years ago with some low-level blockages less than 25%. She has not had a stress test or catheter since. She denies fever or chills. Review of Systems Review of Systems Constitutional: Denies fever or chills [] Eyes: Denies change in visual acuity, redness, or eye pain [] HENT: Denies nasal congestion or sore throat [] Respiratory: Denies cough or shortness of breath [] Cardiovascular: No additional information not addressed in HPI [] GI: Denies abdominal pain, nausea, vomiting, bloody stools or diarrhea [] : Denies dysuria or hematuria [] Musculoskeletal: Denies back pain or joint pain [] Integument: Denies rash or skin lesions [] Neurologic: Headache. Focal weakness or sensory changes [] Endocrine: Denies polyuria or polydipsia [] All other systems were reviewed and found to be within normal limits, except as documented in this note. Current Medications Current Medications Current Medications Medications (Trade) Dose Ordered Sig/Lolis Start Time Stop Time Status Last Admin Dose Admin Diphenhydramine HCl (Benadryl) 50 mg STK-MED ONCE 01/14/18 17:12 01/14/18 17:13 DC Ketorolac Tromethamine (Toradol 30mg Vial) 30 mg STK-MED ONCE 01/14/18 17:12 01/14/18 17:13 DC Metoclopramide HCl (Reglan Vial) 10 mg STK-MED ONCE 01/14/18 17:12 01/14/18 17:13 DC Sodium Chloride 1,000 ml @ 1,000 mls/hr 1X ONCE 01/14/18 17:15 01/14/18 18:14 DC 01/14/18 17:18 1,000 MLS/HR Allergies Allergies Allergies Coded Allergies Type Severity Reaction Last Updated Verified No Known Drug Allergies 11/20/13 No Physical Exam Physical Exam Constitutional: Well developed, obese, well nourished, no acute distress, non- toxic appearance. [] HENT: Normocephalic, atraumatic, bilateral external ears normal, oropharynx moist, no oral exudates, nose normal. [] Eyes: PERRLA, EOMI, conjunctiva normal, no discharge. [] Neck: Normal range of motion, no tenderness, supple, no stridor. [] Cardiovascular:Heart rate regular rhythm, no murmur [] Lungs & Thorax: Bilateral breath sounds clear to auscultation [] Abdomen: Bowel sounds normal, soft, no tenderness, no masses, no pulsatile masses. [] Skin: Warm, dry, no erythema, no rash. [] Back: No tenderness, no CVA tenderness. [] Extremities: No tenderness, no cyanosis, no clubbing, ROM intact, no edema. [] Neurologic: Alert and oriented X 3, normal motor function, normal sensory function, no focal deficits noted. [] Psychologic: Affect normal, judgement normal, mood normal. [] Current Patient Data Vital Signs Vital Signs Date Time Temp Pulse Resp B/P (MAP) Pulse Ox O2 Delivery O2 Flow Rate FiO2 01/14/18 15:45 98.1 74 17 100 Room Air Lab Results Laboratory Tests Test 01/14/18 15:35 White Blood Count 6.8 x10^3/uL (4.0-11.0) Red Blood Count 4.90 x10^6/uL (3.50-5.40) Hemoglobin 14.2 g/dL (12.0-15.5) Hematocrit 41.5 % (36.0-47.0) Mean Corpuscular Volume 85 fL (79-100) Mean Corpuscular Hemoglobin 29 pg (25-35) Mean Corpuscular Hemoglobin Concent 34 g/dL (31-37) Red Cell Distribution Width 14.0 % (11.5-14.5) Platelet Count 240 x10^3/uL (140-400) Neutrophils (%) (Auto) 65 % (31-73) Lymphocytes (%) (Auto) 25 % (24-48) Monocytes (%) (Auto) 7 % (0-9) Eosinophils (%) (Auto) 3 % (0-3) Basophils (%) (Auto) 1 % (0-3) Neutrophils # (Auto) 4.4 x10^3uL (1.8-7.7) Lymphocytes # (Auto) 1.7 x10^3/uL (1.0-4.8) Monocytes # (Auto) 0.5 x10^3/uL (0.0-1.1) Eosinophils # (Auto) 0.2 x10^3/uL (0.0-0.7) Basophils # (Auto) 0.1 x10^3/uL (0.0-0.2) Sodium Level 139 mmol/L (136-145) Potassium Level 3.3 mmol/L (3.5-5.1) L Chloride Level 103 mmol/L (98-107) Carbon Dioxide Level 33 mmol/L (21-32) H Anion Gap 3 (6-14) L Blood Urea Nitrogen 7 mg/dL (7-20) Creatinine 0.7 mg/dL (0.6-1.0) Estimated GFR (Cockcroft-Gault) 108.1 BUN/Creatinine Ratio 10 (6-20) Glucose Level 215 mg/dL (70-99) H Calcium Level 8.7 mg/dL (8.5-10.1) Total Bilirubin 0.4 mg/dL (0.2-1.0) Aspartate Amino Transferase (AST) 20 U/L (15-37) Alanine Aminotransferase (ALT) 41 U/L (14-59) Alkaline Phosphatase 126 U/L (46-116) H Troponin I Quantitative < 0.017 ng/mL (0-0.055) Total Protein 7.6 g/dL (6.4-8.2) Albumin 3.5 g/dL (3.4-5.0) Albumin/Globulin Ratio 0.9 (1.0-1.7) L EKG EKG [] Radiology/Procedures Radiology/Procedures [] Impressions: Portable chest, 01/14/2018: HISTORY: Chest pain The heart size is normal. The lungs are clear. There is no evidence of pleural fluid. Moderate spurring is present in the spine. IMPRESSION: No acute cardiopulmonary abnormality is detected. Electronically signed by: Jose Clark MD (01/14/2018 4:17 PM) [facility] DICTATED AND SIGNED BY: JOSE CLARK MD DATE: 01/14/18 2308 CC: GARTH OZUNA DO; DULCE MIRAMONTES ~ Course & Med Decision Making Course & Med Decision Making Pertinent Labs and Imaging studies reviewed. (See chart for details) The patient's chest x-ray is unremarkable. Her troponin is negative. Her labs are as expected for diabetes. She has a slightly low potassium. Patient's EKG is unremarkable. I gave her 1 L normal saline, 30 mg of Toradol, 25 mg of Benadryl, 10 mg of Reglan for her headache. Her headache has decreased significantly, but is not gone. Patient is reassured by her medical results. She feels able to go home at this time. She is stable for discharge. [] Dragon Disclaimer Dragon Disclaimer This electronic medical record was generated, in whole or in part, using a voice recognition dictation system. Departure Departure: Referrals: DULCE MIRAMONTES (PCP) GARTH OZUNA DO Jan 14, 2018 18:26
== END 2018-01-14 19:20 | disposition home or self-care (01) ==
LOC: ER 15:21
DX: R07.89 Other chest pain (principal); R51 Headache; E87.6 Hypokalemia; M19.90 Unspecified osteoarthritis, unspecified site; E11.9 Type 2 diabetes mellitus without complications; E78.00 Pure hypercholesterolemia, unspecified; I10 Essential (primary) hypertension; K58.9 Irritable bowel syndrome, unspecified
CPT/HCPCS: 36415; 71045; 80053; 84484; 85025; 93005; 96361; 96374; 96375; 99285; J1200; J1885; J2765; J7030

== ENCOUNTER → 2018-01-16 | Outpatient (CLI) | payer OTHER ==
[2018-01-14 15:45] VITALS: BP 155/79
[2018-01-17 14:33] LABS: FREE T4 0.97 ng/dL (0.76-1.46); THYROID STIM HORMONE (TSH) 1.777 uIU/mL (0.358-3.740)
== END | disposition home or self-care (01) ==
LOC: LAB 10:54
DX: E04.1 Nontoxic single thyroid nodule (principal); I10 Essential (primary) hypertension; E11.9 Type 2 diabetes mellitus without complications; E78.5 Hyperlipidemia, unspecified; E78.00 Pure hypercholesterolemia, unspecified; E87.6 Hypokalemia; M19.90 Unspecified osteoarthritis, unspecified site; I25.10 Atherosclerotic heart disease of native coronary artery without angina pectoris; K21.9 Gastro-esophageal reflux disease without esophagitis; Z90.721 Acquired absence of ovaries, unilateral; Z90.49 Acquired absence of other specified parts of digestive tract; Z90.710 Acquired absence of both cervix and uterus; Z82.49 Family history of ischemic heart disease and other diseases of the circulatory system
CPT/HCPCS: 84439; 84443

== ENCOUNTER → 2018-05-04 | Outpatient (CLI) | payer OTHER ==
[~2018-05-04] MED LIST changes: +HYDR-3165 PO; -HYDR-971 PO; -HYDR12.53 PO; +HYDR12.572 PO; -LOSA50TA7 PO; +LOSA50TA86 PO
--- NOTE | 2018-05-04 10:41 | RAD ---
EXAM: CT Abdomen and Pelvis without IV contrast CLINICAL HISTORY: right flank pain COMPARISON: 11/22/2017, 06/30/2016 TECHNIQUE: Helical CT of the abdomen and pelvis without intravenous contrast. Axial, coronal and sagittal reformatted images were generated. PQRS compliance statement - One or more of the following individualized dose reduction techniques were utilized for this study: 1. Automated exposure control 2. Adjustment of the mA and/or kV according to patient size 3. Use of iterative reconstruction technique FINDINGS: Lack of intravenous contrast limits evaluation of solid organs, vasculature, and lymph nodes. Lower chest: Lung bases are clear. Abdomen and Pelvis: No focal liver lesion. Liver is borderline enlarged measuring 18.6 cm. Cholecystectomy clips are seen. No biliary ductal dilatation. Spleen is unremarkable. Adrenal glands are normal. Pancreas is unremarkable. No focal renal lesion. No hydronephrosis or hydroureter. No definite renal tract calculus is seen. Moderate colonic stool content is seen throughout the colon. No evidence for bowel obstruction. Colonic diverticula are seen however no evidence for acute diverticulitis. There is mild mesenteric fat infiltration with prominent (intervally enlarged) associated lymph nodes within the central mesentery. Associated borderline mesenteric engorgement is seen. This is nonspecific but may be seen with sclerosing mesenteritis or mesenteric diverticulitis, more prominent on today's examination. No abdominal or pelvic ascites. Small fat-containing periumbilical hernia is seen. Nodular fat density adjacent to the bladder causes mild deformity of the bladder this may represent a lipoma. Bones: Degenerative changes of the symphysis pubis and spine. IMPRESSION: 1. No renal tract calculi. 2. Mesenteric fat infiltration about the central mesentery with associated lymph nodes, more prominent on today's exam. This may be seen with sclerosing mesenteritis/mesenteric panniculitis. 3. Borderline hepatomegaly. Electronically signed by: Joes Augustine MD (05/04/2018 10:37 AM) [facility]
== END | disposition home or self-care (01) ==
LOC: CT 09:25
PROVIDERS: ATTEND Family Medicine
DX: K57.30 Diverticulosis of large intestine without perforation or abscess without bleeding (principal); K76.0 Fatty (change of) liver, not elsewhere classified; N32.89 Other specified disorders of bladder
CPT/HCPCS: 74176

== ENCOUNTER 2018-05-08 17:47 | Observation (INO) | payer OTHER ==
[~2018-05-08] VITALS: Ht 170.2 cm; Wt 134.9 kg
--- NOTE | 2018-05-08 18:03 | ED.ADGEN ---
Past History Past Medical History: Arthritis, Diabetes, High Cholesterol, Hypertension, IBS , Pancreatitis Past Surgical History: Appendectomy, Cholecystectomy, Hysterectomy Alcohol Use: None Drug Use: None Adult General Chief Complaint Chief Complaint ".. I am having some chest pain.. here in my upper abd. and center chest... .. I ve had some GI problems .. IBS.. .. but this pain seems different..." HPI HPI Patient is a 47 year old female who presents with above hx and complaints of central chest pain. Pt. has history of arthritis, DM, elevated cholesterol, hypertension, IBS, and GERD. Patient denies previous cardiac history. Pt. denies trauma. Pt. chest has been constant the past 2 hrs. There is some component of pleurisy with deep breaths. Pt currently rates pain as 9/10. Nothing seems to make the pain better. Review of Systems Review of Systems Constitutional: Denies fever or chills [] Eyes: Denies change in visual acuity, redness, or eye pain [] HENT: Denies nasal congestion or sore throat [] Respiratory: Denies cough or shortness of breath [] Cardiovascular: No additional information not addressed in HPI [] GI: Denies abdominal pain, nausea, vomiting, bloody stools or diarrhea [] : Denies dysuria or hematuria [] Musculoskeletal: Denies back pain or joint pain [] Integument: Denies rash or skin lesions [] Neurologic: Denies headache, focal weakness or sensory changes [] Endocrine: Denies polyuria or polydipsia [] All other systems were reviewed and found to be within normal limits, except as documented in this note. Family History Family History Noncontributory Current Medications Current Medications Current Medications Medications (Trade) Dose Ordered Sig/[facility] Start Time Stop Time Status Last Admin Dose Admin Aspirin (Children'S Aspirin) 324 mg 1X ONCE 05/08/18 18:15 05/08/18 18:16 DC 05/08/18 19:09 324 MG Enoxaparin Sodium (Lovenox 100mg Syringe) 100 mg 1X ONCE 05/08/18 19:15 05/08/18 19:16 Cancel Enoxaparin Sodium (Lovenox 150mg Syringe) 130 mg Q12HR 05/08/18 21:00 05/08/18 20:29 130 MG Enoxaparin Sodium (Lovenox 40mg Syringe) 40 mg 1X ONCE 05/08/18 19:15 05/08/18 19:16 Cancel Info (Do NOT chart on this entry -- for MONITORING) 1 each PRN DAILY PRN 05/08/18 19:30 05/10/18 19:29 Iohexol (Omnipaque 300 Mg/ml) 50 ml 1X ONCE 05/08/18 19:30 05/08/18 19:31 DC 05/08/18 19:32 50 ML Lactated Ringer's 1,000 ml @ 1,000 mls/hr Q1H 05/08/18 18:04 05/08/18 19:03 DC 05/08/18 19:09 1,000 MLS/HR Morphine Sulfate (Morphine 2mg Syringe) 2 mg PRN Q2HR PRN 05/08/18 19:30 05/09/18 19:29 05/08/18 23:26 2 MG Nitroglycerin (Nitro-Bid Oint) 1 inch 1X ONCE 05/08/18 19:30 05/08/18 19:31 DC 05/08/18 20:29 1 INCH Ondansetron HCl (Zofran) 4 mg PRN Q4HRS PRN 05/08/18 19:30 05/09/18 19:29 05/08/18 20:41 4 MG Allergies Allergies Allergies Coded Allergies Type Severity Reaction Last Updated Verified No Known Drug Allergies 05/08/18 No Physical Exam Physical Exam Constitutional: Moderately acute distress, non-toxic appearance. [] HENT: Normocephalic, atraumatic, bilateral external ears normal, oropharynx moist, no oral exudates, nose normal. [] Eyes: PERRLA, EOMI, conjunctiva normal, no discharge. [] Neck: Normal range of motion, no tenderness, supple, no stridor. [] Cardiovascular:Heart rate regular rhythm, no murmur [] Lungs & Thorax: Bilateral breath sounds equal at apexes with a few scattered wheezes auscultation [] Abdomen: Bowel sounds normal, soft, epigastric tenderness, no masses, no pulsatile masses. Old surgery scars.] Skin: Warm, dry, no erythema, no rash. [] Back: No tenderness, no CVA tenderness. [] Extremities: No tenderness, no cyanosis, no clubbing, ROM intact, no edema. [] No cording appreciated Neurologic: Alert and oriented X 3, normal motor function, normal sensory function, no focal deficits noted. [] Psychologic: Affect anxious, judgement normal, mood normal. [] Current Patient Data Vital Signs Vital Signs Date Time Temp Pulse Resp B/P (MAP) Pulse Ox O2 Delivery O2 Flow Rate FiO2 05/08/18 21:30 97.6 69 20 149/96 (113) 96 Room Air Lab Results Laboratory Tests Test 05/08/18 18:10 05/08/18 19:00 White Blood Count 6.7 x10^3/uL (4.0-11.0) Red Blood Count 4.93 x10^6/uL (3.50-5.40) Hemoglobin 14.0 g/dL (12.0-15.5) Hematocrit 41.7 % (36.0-47.0) Mean Corpuscular Volume 85 fL (79-100) Mean Corpuscular Hemoglobin 29 pg (25-35) Mean Corpuscular Hemoglobin Concent 34 g/dL (31-37) Red Cell Distribution Width 14.3 % (11.5-14.5) Platelet Count 291 x10^3/uL (140-400) Neutrophils (%) (Auto) 64 % (31-73) Lymphocytes (%) (Auto) 28 % (24-48) Monocytes (%) (Auto) 6 % (0-9) Eosinophils (%) (Auto) 2 % (0-3) Basophils (%) (Auto) 1 % (0-3) Neutrophils # (Auto) 4.3 x10^3uL (1.8-7.7) Lymphocytes # (Auto) 1.8 x10^3/uL (1.0-4.8) Monocytes # (Auto) 0.4 x10^3/uL (0.0-1.1) Eosinophils # (Auto) 0.1 x10^3/uL (0.0-0.7) Basophils # (Auto) 0.0 x10^3/uL (0.0-0.2) Prothrombin Time 9.9 SEC (9.4-11.4) Prothrombin Time INR 1.0 (0.9-1.1) PTT 26 SEC (23-33) D-Dimer (Ya) 1.12 mg/L (0.00-0.50) H Sodium Level 139 mmol/L (136-145) Potassium Level 3.8 mmol/L (3.5-5.1) Chloride Level 101 mmol/L (98-107) Carbon Dioxide Level 31 mmol/L (21-32) Anion Gap 7 (6-14) Blood Urea Nitrogen 17 mg/dL (7-20) Creatinine 0.7 mg/dL (0.6-1.0) Estimated GFR (Cockcroft-Gault) 108.1 Glucose Level 203 mg/dL (70-99) H Calcium Level 9.3 mg/dL (8.5-10.1) Magnesium Level 2.0 mg/dL (1.8-2.4) Total Bilirubin 0.3 mg/dL (0.2-1.0) Direct Bilirubin 0.1 mg/dL (0.0-0.2) Aspartate Amino Transferase (AST) 17 U/L (15-37) Alanine Aminotransferase (ALT) 41 U/L (14-59) Alkaline Phosphatase 139 U/L (46-116) H Creatine Kinase 83 U/L (26-192) Creatine Kinase MB (Mass) < 0.5 ng/mL (0.0-3.6) Creatine Kinase MB Relative Index 0.6 % (0-4) Troponin I Quantitative < 0.017 ng/mL (0-0.055) IJ-Npc-Q-Type Natriuretic Peptide 15 pg/mL (0-124) Total Protein 7.5 g/dL (6.4-8.2) Albumin 3.4 g/dL (3.4-5.0) Lipase 216 U/L (73-393) Urine Collection Type Unknown Urine Color Yellow Urine Clarity Clear Urine pH 7.0 Urine Specific [place] 1.015 Urine Protein Neg (NEG-TRACE) Urine Glucose (UA) Neg mg/dL (NEG) Urine Ketones (Stick) Neg mg/dL (NEG) Urine Blood Neg (NEG) Urine Nitrite Neg (NEG) Urine Bilirubin Neg (NEG) Urine Urobilinogen Dipstick 0.2 mg/dL (0.2 mg/dL) Urine Leukocyte Esterase Trace (NEG) Urine RBC 0 /HPF (0-2) Urine WBC Occ /HPF (0-4) Urine Squamous Epithelial Cells Mod /LPF Urine Bacteria 0 /HPF (0-FEW) Urine Yeast Present /HPF Urine Opiates Screen Neg (NEG) Urine Methadone Screen Neg (NEG) Urine Barbiturates Neg (NEG) Urine Phencyclidine Screen Neg (NEG) Urine Amphetamine/Methamphetamine Neg (NEG) Urine Benzodiazepines Screen Neg (NEG) Urine Cocaine Screen Neg (NEG) Urine Cannabinoids Screen Neg (NEG) Urine Ethyl Alcohol Neg (NEG) EKG EKG My interpretation EKG shows a sinus rhythm at 79 bpm. No findings acute STEMI of contralateral changes.[] Radiology/Procedures Radiology/Procedures My interpretation of chest x-ray shows no acute cardio pulmonary changes. No free air in the diaphragm. Somewhat generous cardiac silhouette. Does appear to have significant vertebral spurring. CT of chest shows no obvious central pulmonary embolisms. No large infiltrate. Does have degenerative joint changes. See formal report when available[] Course & Med Decision Making Course & Med Decision Making Pertinent Labs and Imaging studies reviewed. (See chart for details). Patient be admitted to for further eval. US of legs pending at time of admit. Cardiology consult for CP and HTN [] Final Impression Final Impression 1. Chest pain 2. Diabetes 203 3. Elev. D-dimer 1.12 4. Elev., Alk Phos. 5. HTN 6. Hx Arthritis 7. Hx. IBS [] Dragon Disclaimer Dragon Disclaimer This electronic medical record was generated, in whole or in part, using a voice recognition dictation system. Discharge Summary Visit Information Final Diagnosis Problems Medical Problems: (1) Chest pain Status: Acute (2) Hypertension Status: Acute Brief Hospital Course Allergies Allergies Coded Allergies Type Severity Reaction Last Updated Verified No Known Drug Allergies 05/08/18 No Vital Signs Vital Signs Date Time Temp Pulse Resp B/P (MAP) Pulse Ox O2 Delivery O2 Flow Rate FiO2 05/08/18 21:30 97.6 69 20 149/96 (113) 96 Room Air Lab Results Laboratory Tests Test 05/08/18 18:10 05/08/18 19:00 White Blood Count 6.7 x10^3/uL (4.0-11.0) Red Blood Count 4.93 x10^6/uL (3.50-5.40) Hemoglobin 14.0 g/dL (12.0-15.5) Hematocrit 41.7 % (36.0-47.0) Mean Corpuscular Volume 85 fL (79-100) Mean Corpuscular Hemoglobin 29 pg (25-35) Mean Corpuscular Hemoglobin Concent 34 g/dL (31-37) Red Cell Distribution Width 14.3 % (11.5-14.5) Platelet Count 291 x10^3/uL (140-400) Neutrophils (%) (Auto) 64 % (31-73) Lymphocytes (%) (Auto) 28 % (24-48) Monocytes (%) (Auto) 6 % (0-9) Eosinophils (%) (Auto) 2 % (0-3) Basophils (%) (Auto) 1 % (0-3) Neutrophils # (Auto) 4.3 x10^3uL (1.8-7.7) Lymphocytes # (Auto) 1.8 x10^3/uL (1.0-4.8) Monocytes # (Auto) 0.4 x10^3/uL (0.0-1.1) Eosinophils # (Auto) 0.1 x10^3/uL (0.0-0.7) Basophils # (Auto) 0.0 x10^3/uL (0.0-0.2) Prothrombin Time 9.9 SEC (9.4-11.4) Prothromb Time International Ratio 1.0 (0.9-1.1) Activated Partial Thromboplast Time 26 SEC (23-33) D-Dimer (Ya) 1.12 mg/L (0.00-0.50) Sodium Level 139 mmol/L (136-145) Potassium Level 3.8 mmol/L (3.5-5.1) Chloride Level 101 mmol/L (98-107) Carbon Dioxide Level 31 mmol/L (21-32) Anion Gap 7 (6-14) Blood Urea Nitrogen 17 mg/dL (7-20) Creatinine 0.7 mg/dL (0.6-1.0) Estimated GFR (Cockcroft-Gault) 108.1 Glucose Level 203 mg/dL (70-99) Calcium Level 9.3 mg/dL (8.5-10.1) Magnesium Level 2.0 mg/dL (1.8-2.4) Total Bilirubin 0.3 mg/dL (0.2-1.0) Direct Bilirubin 0.1 mg/dL (0.0-0.2) Aspartate Amino Transf (AST/SGOT) 17 U/L (15-37) Alanine Aminotransferase (ALT/SGPT) 41 U/L (14-59) Alkaline Phosphatase 139 U/L (46-116) Creatine Kinase 83 U/L (26-192) Creatine Kinase MB (Mass) < 0.5 ng/mL (0.0-3.6) Creatine Kinase MB Relative Index 0.6 % (0-4) Troponin I Quantitative < 0.017 ng/mL (0-0.055) SC-Phl-J-Type Natriuretic Peptide 15 pg/mL (0-124) Total Protein 7.5 g/dL (6.4-8.2) Albumin 3.4 g/dL (3.4-5.0) Lipase 216 U/L (73-393) Urine Collection Type Unknown Urine Color Yellow Urine Clarity Clear Urine pH 7.0 Urine Specific [place] 1.015 Urine Protein Neg (NEG-TRACE) Urine Glucose (UA) Neg mg/dL (NEG) Urine Ketones (Stick) Neg mg/dL (NEG) Urine Blood Neg (NEG) Urine Nitrite Neg (NEG) Urine Bilirubin Neg (NEG) Urine Urobilinogen Dipstick 0.2 mg/dL (0.2 mg/dL) Urine Leukocyte Esterase Trace (NEG) Urine RBC 0 /HPF (0-2) Urine WBC Occ /HPF (0-4) Urine Squamous Epithelial Cells Mod /LPF Urine Bacteria 0 /HPF (0-FEW) Urine Yeast Present /HPF Urine Opiates Screen Neg (NEG) Urine Methadone Screen Neg (NEG) Urine Barbiturates Neg (NEG) Urine Phencyclidine Screen Neg (NEG) Urine Amphetamine/Methamphetamine Neg (NEG) Urine Benzodiazepines Screen Neg (NEG) Urine Cocaine Screen Neg (NEG) Urine Cannabinoids Screen Neg (NEG) Urine Ethyl Alcohol Neg (NEG) Brief Hospital Course Ms. Hill is a 47 old female who presented with 2 hrs of persistent chest pain. Admit for serial enzymes and cardiology consult. Discharge Information Condition at Discharge: Improved, Stable Dischare Medications Current Medications Aspirin (Children'S Aspirin) 324 mg 1X ONCE PO Last administered on 05/08/18at 19:09; Admin Dose 324 MG; Start 05/08/18 at 18:15; Stop 05/08/18 at 18:16; Status DC Lactated Ringer's 1,000 ml @ 1,000 mls/hr Q1H IV Last administered on at 19:09; Admin Dose 1,000 MLS/HR; Start 05/08/18 at 18:04; Stop 05/08/18 at 19: 03; Status DC Enoxaparin Sodium (Lovenox 100mg Syringe) 100 mg 1X ONCE SQ ; Start 05/08/18 at 19:15; Stop 05/08/18 at 19:16; Status Cancel Enoxaparin Sodium (Lovenox 40mg Syringe) 40 mg 1X ONCE SQ ; Start 05/08/18 at 19 :15; Stop 05/08/18 at 19:16; Status Cancel Nitroglycerin (Nitro-Bid Oint) 1 inch 1X ONCE TP Last administered on at 20:29; Admin Dose 1 INCH; Start 05/08/18 at 19:30; Stop 05/08/18 at 19:31; Status DC Iohexol (Omnipaque 300 Mg/ml) 50 ml 1X ONCE IV Last administered on 05/08/18at 19:32; Admin Dose 50 ML; Start 05/08/18 at 19:30; Stop 05/08/18 at 19:31; Status DC Iohexol (Omnipaque 300 Mg/ml) 50 ml 1X ONCE IV Last administered on 05/08/18at 19:32; Admin Dose 50 ML; Start 05/08/18 at 19:30; Stop 05/08/18 at 19:31; Status DC Ondansetron HCl (Zofran) 4 mg PRN Q4HRS PRN IV NAUSEA/VOMITING Last administered on 05/08/18at 20:41; Admin Dose 4 MG; Start 05/08/18 at 19:30; Stop at 19:29 Morphine Sulfate (Morphine 2mg Syringe) 2 mg PRN Q2HR PRN IV PAIN Last administered on 05/08/18at 23:26; Admin Dose 2 MG; Start 05/08/18 at 19:30; Stop at 19:29 Enoxaparin Sodium (Lovenox 150mg Syringe) 130 mg Q12HR SQ Last administered on 05/08/18at 20:29; Admin Dose 130 MG; Start 05/08/18 at 21:00 Info (Do NOT chart on this entry -- for MONITORING) 1 each PRN DAILY PRN MC SEE COMMENTS; Start 05/08/18 at 19:30; Stop 05/10/18 at 19:29 Active Scripts Active Reported Tizanidine Hcl (Tizanidine HCl) 6 Mg Capsule 6 Mg PO PRN PRN MDD 18 NOT GIVEN IN THE HOSPITAL NEXT DOSE DUE: DATE: TODAY TIME: IF AND WHEN NEEDED Metformin Hcl 1,000 Mg Tablet 1 Tab PO DAILY HELD IN THE HOSPITAL BECAUSE OF CAT SCAN CONTRAST NEXT DOSE DUE: DATE: TIME: WITH DINNER Tramadol Hcl (Tramadol HCl) 50 Mg Tablet 50 Mg PO PRN BID PRN LAST DOSE GIVEN: DATE: TODAY TIME: EARLY AFTERNOON NEXT DOSE DUE: DATE: TODAY TIME: EVENING IF NEEDED Glimepiride 2 Mg Tablet 4 Mg PO DAILY LAST DOSE GIVEN: DATE: TIME: AM NEXT DOSE DUE: DATE: TOMORROW TIME: AM Amlodipine Besylate 5 Mg Tablet 1 Tab PO DAILY LAST DOSE GIVEN: DATE: TIME: AM NEXT DOSE DUE: DATE: TOMORR TIME: AM Dragon Disclaimer This chart was dictated in whole or in part using Voice Recognition software in a busy, high-work load, and often noisy Emergency Department environment. It may contain unintended and wholly unrecognized errors or omissions. WILLIAM FINE MD May 08, 2018 18:03
[2018-05-08] MEDS ORDERED: IV RINGERS SOLUTION,LACTATED 1,000 ML IV SCH (18:04)
[2018-05-08] MEDS ORDERED: ASPIRIN 81 MG TAB.CHEW PO ONE (18:15)
[2018-05-08 18:31] LABS: BASO % 1 % (0-3); EOS # 0.1 x10^3/uL (0.0-0.7); EOS % 2 % (0-3); HEMATOCRIT 41.7 % (36.0-47.0); LYMPH # 1.8 x10^3/uL (1.0-4.8); LYMPH % 28 % (24-48); MEAN CORPUSCULAR HEMOGLOBIN 29 pg (25-35); MEAN CORPUSCULAR HGB CONC 34 g/dL (31-37); MEAN CORPUSCULAR VOLUME 85 fL (79-100); MONO # 0.4 x10^3/uL (0.0-1.1); MONO % 6 % (0-9); NEUT # 4.3 x10^3uL (1.8-7.7); NEUT % 64 % (31-73); PLATELET COUNT 291 x10^3/uL (140-400); RED BLOOD COUNT 4.93 x10^6/uL (3.50-5.40); RED CELL DISTRIBUTION WIDTH 14.3 % (11.5-14.5); WHITE BLOOD COUNT 6.7 x10^3/uL (4.0-11.0)
[2018-05-08 18:51] LABS: ALBUMIN 3.4 g/dL (3.4-5.0); ALK PHOS 139 U/L (46-116); ALT (SGPT) 41 U/L (14-59); ANION GAP 7 (6-14); AST (SGOT) 17 U/L (15-37); BLOOD UREA NITROGEN 17 mg/dL (7-20); CALCIUM 9.3 mg/dL (8.5-10.1); CARBON DIOXIDE 31 mmol/L (21-32); CHLORIDE 101 mmol/L (98-107); CREATININE 0.7 mg/dL (0.6-1.0); DIRECT BILIRUBIN 0.1 mg/dL (0.0-0.2); GFR 108.1; GLUCOSE 203 mg/dL (70-99); LIPASE 216 U/L (73-393); POTASSIUM 3.8 mmol/L (3.5-5.1); SODIUM 139 mmol/L (136-145); TOTAL BILIRUBIN 0.3 mg/dL (0.2-1.0); TOTAL PROTEIN 7.5 g/dL (6.4-8.2)
[2018-05-08] MEDS ORDERED: ENOXAPARIN 40 MG/0.4 ML SYRINGE. SQ ONE (19:15)
[2018-05-08] MEDS ORDERED: ENOXAPARIN ** NOTE DOSE ** SYRINGE SQ ONE (19:15)
[2018-05-08] MEDS ORDERED: ONDANSETRON PF 4 MG/2 ML VIAL. IV PRN (19:30)
[2018-05-08] MEDS ORDERED: IOHEXOL 300 MG/ML 50 ML VIAL. IV ONE ×2 (19:30)
[2018-05-08] MEDS ORDERED: NITROGLYCERIN OINT 1 GM PACKET. TP ONE (19:30)
[2018-05-08] MEDS ORDERED: CONTRAST GIVEN MC PRN (19:30)
[2018-05-08] MEDS: ENOXAPARIN ** NOTE DOSE ** SYRINGE SQ SCH (20:29)
[2018-05-08 20:32] LABS: BARBITURATES NEG (NEG); BENZODIAZEPINES NEG (NEG); CANNABINOIDS NEG (NEG); COCAINE NEG (NEG); METHADONE NEG (NEG); OPIATES NEG (NEG); PHENCYCLIDINE NEG (NEG)
[2018-05-08 20:33] LABS: AMPHETAMINE/METHAMPHETAMINE NEG (NEG)
[2018-05-08] MEDS: MORPHINE SULFATE 2 MG/ML DISP.SYRIN. IV PRN ×2 (20:41→23:26)
--- NOTE | 2018-05-08 20:57 | RAD ---
Examination: CT ANGIOGRAPHY CHEST History: CHEST PAIN, ELEVATED DDIMER
GAVE OMNI 300 100ML IV
NO HX OBESIDES DIABETES Comparison/Correlation: None Findings: Axial images of chest were obtained without contrast. Sagittal and coronal reformatted images were provided. MIP images provided. Exam was performed according to pulmonary arteriography protocol. Pulmonary arterial vasculature is normal with no thromboembolic disease. Thoracic aorta is not optimally opacified for this exam. No enlarged thoracic lymph nodes. No infiltrates or effusions. No pneumothorax. No pulmonary nodule or mass. Significant spurring along the anterior aspect of the thoracic spine noted at numerous levels. Cholecystectomy clips noted. Impression: No pulmonary arterial thromboembolic disease. No infiltrate. Electronically signed by: Carlos Pastor MD (05/08/2018 8:53 PM) [facility]
[2018-05-08 21:30] VITALS: BP 149/96
[2018-05-08 21:39] LABS: BACTERIA,URINE 0 /HPF (0-FEW); BILIRUBIN,URINE NEG (NEG); CLARITY,URINE CLEAR; COLOR,URINE YELLOW; GLUCOSE,URINE NEG (NEG); NITRITE,URINE NEG (NEG); RBC,URINE 0 /HPF (0-2); SQUAMOUS EPITHELIAL CELL,UR MOD /LPF; UROBILINOGEN,URINE 0.2 mg/dL (0.2 mg/dL); WBC,URINE OCC /HPF (0-4)
[2018-05-08 21:40] LABS: YEAST,URINE PRESENT /HPF
--- NOTE | 2018-05-09 00:04 | RAD ---
Examination: CHEST PA LATERAL History: CHEST PAIN Comparison/Correlation: 01/14/2018 AP view of the chest Findings: Frontal and lateral views of chest were obtained. Heart size and pulmonary vasculature are normal. No infiltrate or effusion. Spurring of the thoracic spine is notable. No pneumothorax. Impression: No active disease. Electronically signed by: Carlos Pastor MD (05/09/2018 12:00 AM) [facility]
[2018-05-09] MEDS: MORPHINE SULFATE 2 MG/ML DISP.SYRIN. IV PRN (04:28)
--- NOTE | 2018-05-09 05:50 | EKG ---
[address] [address] Test Date: 2018-05-08 Test Time: 18:02:12 Pat Name: KARO STEWART Department: Room: 122 A Gender: F [employer]: : [id number] Requested By: WILLIAM FINE Order Number: [id number] Reading MD: Dontrell Clark MD Measurements Intervals [place] Rate: 79 P: 32 AR: 158 QRS: 44 QRSD: 78 T: -8 QT: 392 QTc: 451 Interpretive Statements SINUS RHYTHM NON-SPECIFIC ST/T CHANGES Electronically Signed On 05-15-2018 9:17:00 [facility]EN[facility] AUTHOR by Dontrell Clark MD
[2018-05-09 06:07] VITALS: BP 112/70
[2018-05-09 07:03] LABS: BASO % 1 % (0-3); EOS # 0.2 x10^3/uL (0.0-0.7); EOS % 3 % (0-3); HEMATOCRIT 37.5 % (36.0-47.0); HEMOGLOBIN 12.5 g/dL (12.0-15.5); LYMPH % 37 % (24-48); MEAN CORPUSCULAR HEMOGLOBIN 28 pg (25-35); MEAN CORPUSCULAR HGB CONC 33 g/dL (31-37); MEAN CORPUSCULAR VOLUME 85 fL (79-100); MONO # 0.3 x10^3/uL (0.0-1.1); MONO % 6 % (0-9); NEUT % 54 % (31-73); PLATELET COUNT 269 x10^3/uL (140-400); RED BLOOD COUNT 4.41 x10^6/uL (3.50-5.40); RED CELL DISTRIBUTION WIDTH 14.3 % (11.5-14.5); WHITE BLOOD COUNT 5.5 x10^3/uL (4.0-11.0)
[2018-05-09 07:05] LABS: CALCIUM 8.5 mg/dL (8.5-10.1); CREATININE 0.7 mg/dL (0.6-1.0); GFR 108.1; POTASSIUM 3.5 mmol/L (3.5-5.1)
[2018-05-09] MEDS: ENOXAPARIN ** NOTE DOSE ** SYRINGE SQ SCH (08:29)
[2018-05-09] MEDS ORDERED: tiZANidine 4 MG TABLET. PO PRN (08:30)
[2018-05-09] MEDS: traMADol 50 MG TABLET PO PRN ×2 (08:34→15:15)
[2018-05-09] MEDS ORDERED: GLIMEPIRIDE 2 MG TABLET PO SCH (09:00)
[2018-05-09] MEDS ORDERED: amLODIPine BESYLATE 5 MG TABLET PO SCH (09:00)
--- NOTE | 2018-05-09 09:31 | PDOC2 ---
CONSULT Date of Admission DATE: 05/09/18 TIME: 09:29 Reason for Consult: cp Problem List Problems Medical Problems: (1) Chest pain Status: Acute (2) Hypertension Status: Acute History of Present Illness Ms Hill is a 47 year old female who presents with complaints of left sided chest pain unrelated to exertion. she describes a squeezing lasting a few minutes with no associated symptoms. She reports 48 hours of nausea/vomiting and diarrhea preceding development of chest discomfort. She complains of general malaise and elevated blood sugar. She was seen October of last year and underwent echo which was unremarkable and outpatient stress testing in Dec which was also unremarkable. She reports occasional pain since that time unchanged from that admission and lasting only a couple minutes each, She denies congestive symptoms, edema, palpitations or syncope. She denies change in functional capacity. 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 Past Medical History Echo 11/23/17 The left ventricular systolic function is normal and the ejection fraction is within normal range. EF 65% There is normal LV segmental wall motion. MPI 01/17/18 Conclusion 1. Regadenoson cardioisotope stress test did not show any evidence of ischemia or infarct. 2. Normal left ventricular systolic function with ejection fraction calculated at 70%. 3. Low risk for cardiac events. Cath 10/31/13 LM - ostial 20% LAD - normal LCX - normal RCA - normal Cardiovascular: HTN, hyperipidemia GI: GERD, Other (pancreatitis ) Musculoskeletal: Other (mid to low back pain) Endocrine: Diabetes, Other (thyroid nodules) Past Surgical History unilateral oophorectomy Past Surgical History Past Surgical History: Appendectomy, Hysterectomy Family History Family History hypertension, cancer Social History Social History non smoker, social ETOH, no illicit drug use Current Medications Current Medications Aspirin (Children'S Aspirin) 324 mg 1X ONCE PO Last administered on 05/08/18at 19:09; Start 05/08/18 at 18:15; Stop 05/08/18 at 18:16; Status DC Lactated Ringer's 1,000 ml @ 1,000 mls/hr Q1H IV Last administered on at 19:09; Start 05/08/18 at 18:04; Stop 05/08/18 at 19:03; Status DC Enoxaparin Sodium (Lovenox 100mg Syringe) 100 mg 1X ONCE SQ ; Start 05/08/18 at 19:15; Stop 05/08/18 at 19:16; Status Cancel Enoxaparin Sodium (Lovenox 40mg Syringe) 40 mg 1X ONCE SQ ; Start 05/08/18 at 19 :15; Stop 05/08/18 at 19:16; Status Cancel Nitroglycerin (Nitro-Bid Oint) 1 inch 1X ONCE TP Last administered on at 20:29; Start 05/08/18 at 19:30; Stop 05/08/18 at 19:31; Status DC Iohexol (Omnipaque 300 Mg/ml) 50 ml 1X ONCE IV Last administered on 05/08/18at 19:32; Start 05/08/18 at 19:30; Stop 05/08/18 at 19:31; Status DC Iohexol (Omnipaque 300 Mg/ml) 50 ml 1X ONCE IV Last administered on 05/08/18at 19:32; Start 05/08/18 at 19:30; Stop 05/08/18 at 19:31; Status DC Ondansetron HCl (Zofran) 4 mg PRN Q4HRS PRN IV NAUSEA/VOMITING Last administered on 05/08/18at 20:41; Start 05/08/18 at 19:30; Stop 05/09/18 at 19:29 Morphine Sulfate (Morphine 2mg Syringe) 2 mg PRN Q2HR PRN IV PAIN Last administered on 05/09/18at 04:28; Start 05/08/18 at 19:30; Stop 05/09/18 at 19:29 Enoxaparin Sodium (Lovenox 150mg Syringe) 130 mg Q12HR SQ Last administered on 05/09/18at 08:29; Start 05/08/18 at 21:00 Info (Do NOT chart on this entry -- for MONITORING) 1 each PRN DAILY PRN MC SEE COMMENTS; Start 05/08/18 at 19:30; Stop 05/10/18 at 19:29 Tramadol HCl (Ultram) 50 mg PRN BID PRN PO PAIN Last administered on 05/09/18at 08:34; Start 05/09/18 at 08:15 Amlodipine Besylate (Norvasc) 5 mg DAILY PO Last administered on 05/09/18at 08:29 ; Start 05/09/18 at 09:00 Glimepiride (Amaryl) 4 mg DAILY PO Last administered on 05/09/18at 08:29; Start 05/09/18 at 09:00 Metformin HCl (Glucophage) 1,000 mg DAILYWBKFT PO ; Start 05/11/18 at 08:00 Tizanidine HCl (Zanaflex) 6 mg PRN DAILY PRN PO MUSCLE SPASMS; Start 05/09/18 at 08:30 Active Scripts Active Reported Tizanidine Hcl (Tizanidine HCl) 6 Mg Capsule 6 Mg PO PRN PRN MDD 18 NOT GIVEN IN THE HOSPITAL NEXT DOSE DUE: DATE: TODAY TIME: IF AND WHEN NEEDED Metformin Hcl 1,000 Mg Tablet 1 Tab PO DAILY HELD IN THE HOSPITAL BECAUSE OF CAT SCAN CONTRAST NEXT DOSE DUE: DATE: TODAY TIME: WITH DINNER Tramadol Hcl (Tramadol HCl) 50 Mg Tablet 50 Mg PO PRN BID PRN LAST DOSE GIVEN: DATE: TODAY TIME: EARLY AFTERNOON NEXT DOSE DUE: DATE: TODAY TIME: EVENING IF NEEDED Glimepiride 2 Mg Tablet 4 Mg PO DAILY LAST DOSE GIVEN: DATE: TODAY TIME: AM NEXT DOSE DUE: DATE: TOMORROW TIME: AM Amlodipine Besylate 5 Mg Tablet 1 Tab PO DAILY LAST DOSE GIVEN: DATE: TODAY TIME: AM NEXT DOSE DUE: DATE: TOMORROW TIME: AM Allergies: Coded Allergies: No Known Drug Allergies (Unverified , 05/08/18) Review of System as per HPI or negative General: Alert, Oriented X3, Cooperative, No acute distress HEENT: Atraumatic, EOMI, Mucous membr. moist/pink Lungs: Clear to auscultation, Normal air movement Heart: Normal S1, Normal S2, No murmurs, Other (no gallops, clicks or rubs) Abdomen: Normal bowel sounds, Soft, No tenderness Extremities: No cyanosis, No edema, Normal pulses Skin: No rashes Neuro: Normal speech, Strength at 5/5 X4 ext Psych/Mental Status: Mental status NL, Mood NL VITALS Vital Signs Date Time Temp Pulse Resp B/P (MAP) Pulse Ox O2 Delivery O2 Flow Rate FiO2 05/09/18 08:34 98 05/09/18 08:29 68 112/70 05/09/18 06:07 97.6 16 Room Air Labs Laboratory Tests Test 1/8/19 18:10 05/08/18:00 05/09/18 06:20 05/09/18 07:39 White Blood Count 6.7 x10^3/uL (4.0-11.0) 5.5 x10^3/uL (4.0-11.0) Red Blood Count 4.93 x10^6/uL (3.50-5.40) 4.41 x10^6/uL (3.50-5.40) Hemoglobin 14.0 g/dL (12.0-15.5) 12.5 g/dL (12.0-15.5) Hematocrit 41.7 % (36.0-47.0) 37.5 % (36.0-47.0) Mean Corpuscular Volume 85 fL (79-100) 85 fL (79-100) Mean Corpuscular Hemoglobin 29 pg (25-35) 28 pg (25-35) Mean Corpuscular Hemoglobin Concent 34 g/dL (31-37) 33 g/dL (31-37) Red Cell Distribution Width 14.3 % (11.5-14.5) 14.3 % (11.5-14.5) Platelet Count 291 x10^3/uL (140-400) 269 x10^3/uL (140-400) Neutrophils (%) (Auto) 64 % (31-73) 54 % (31-73) Lymphocytes (%) (Auto) 28 % (24-48) 37 % (24-48) Monocytes (%) (Auto) 6 % (0-9) 6 % (0-9) Eosinophils (%) (Auto) 2 % (0-3) 3 % (0-3) Basophils (%) (Auto) 1 % (0-3) 1 % (0-3) Neutrophils # (Auto) 4.3 x10^3uL (1.8-7.7) 3.0 x10^3uL (1.8-7.7) Lymphocytes # (Auto) 1.8 x10^3/uL (1.0-4.8) 2.0 x10^3/uL (1.0-4.8) Monocytes # (Auto) 0.4 x10^3/uL (0.0-1.1) 0.3 x10^3/uL (0.0-1.1) Eosinophils # (Auto) 0.1 x10^3/uL (0.0-0.7) 0.2 x10^3/uL (0.0-0.7) Basophils # (Auto) 0.0 x10^3/uL (0.0-0.2) 0.0 x10^3/uL (0.0-0.2) Prothrombin Time 9.9 SEC (9.4-11.4) Prothromb Time International Ratio 1.0 (0.9-1.1) Activated Partial Thromboplast Time 26 SEC (23-33) D-Dimer (Ya) 1.12 mg/L (0.00-0.50) Sodium Level 139 mmol/L (136-145) 138 mmol/L (136-145) Potassium Level 3.8 mmol/L (3.5-5.1) 3.5 mmol/L (3.5-5.1) Chloride Level 101 mmol/L (98-107) 102 mmol/L (98-107) Carbon Dioxide Level 31 mmol/L (21-32) 30 mmol/L (21-32) Anion Gap 7 (6-14) 6 (6-14) Blood Urea Nitrogen 17 mg/dL (7-20) 14 mg/dL (7-20) Creatinine 0.7 mg/dL (0.6-1.0) 0.7 mg/dL (0.6-1.0) Estimated GFR (Cockcroft-Gault) 108.1 108.1 Glucose Level 203 mg/dL (70-99) 235 mg/dL (70-99) Calcium Level 9.3 mg/dL (8.5-10.1) 8.5 mg/dL (8.5-10.1) Magnesium Level 2.0 mg/dL (1.8-2.4) Total Bilirubin 0.3 mg/dL (0.2-1.0) Direct Bilirubin 0.1 mg/dL (0.0-0.2) Aspartate Amino Transf (AST/SGOT) 17 U/L (15-37) Alanine Aminotransferase (ALT/SGPT) 41 U/L (14-59) Alkaline Phosphatase 139 U/L (46-116) Creatine Kinase 83 U/L (26-192) Creatine Kinase MB (Mass) < 0.5 ng/mL (0.0-3.6) Creatine Kinase MB Relative Index 0.6 % (0-4) Troponin I Quantitative < 0.017 ng/mL (0-0.055) SU-Cqz-[id number]-Type Natriuretic Peptide 15 pg/mL (0-124) Total Protein 7.5 g/dL (6.4-8.2) Albumin 3.4 g/dL (3.4-5.0) Lipase 216 U/L (73-393) Urine Collection Type Unknown Urine Color Yellow Urine Clarity Clear Urine pH 7.0 Urine Specific [place] 1.015 Urine Protein Neg (NEG-TRACE) Urine Glucose (UA) Neg mg/dL (NEG) Urine Ketones (Stick) Neg mg/dL (NEG) Urine Blood Neg (NEG) Urine Nitrite Neg (NEG) Urine Bilirubin Neg (NEG) Urine Urobilinogen Dipstick 0.2 mg/dL (0.2 mg/dL) Urine Leukocyte Esterase Trace (NEG) Urine RBC 0 /HPF (0-2) Urine WBC Occ /HPF (0-4) Urine Squamous Epithelial Cells Mod /LPF Urine Bacteria 0 /HPF (0-FEW) Urine Yeast Present /HPF Urine Opiates Screen Neg (NEG) Urine Methadone Screen Neg (NEG) Urine Barbiturates Neg (NEG) Urine Phencyclidine Screen Neg (NEG) Urine Amphetamine/Methamphetamine Neg (NEG) Urine Benzodiazepines Screen Neg (NEG) Urine Cocaine Screen Neg (NEG) Urine Cannabinoids Screen Neg (NEG) Urine Ethyl Alcohol Neg (NEG) Glucose (Fingerstick) 203 mg/dL (70-99) Images EKG - sinus rhythm, non specific t abnormalities CTA - Impression: No pulmonary arterial thromboembolic disease. No infiltrate. CXR - Impression: No active disease. Assessment/Plan 1. chest pain, atypical, likely radicular in nature. No acute ekg changes. CE negative x 1. Negative MPI in December and echo with normal LV function and wall motion in October. 2. hypertensive heart disease - blood pressure well controlled. continue current medications. 3. diabetes mellitus - per PCP 4. 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 NICOLE SCANLON APRN May 09, 2018 09:31
[2018-05-09 10:47] VITALS: BP 125/78
[2018-05-09 15:44] VITALS: BP 128/81
--- NOTE | 2018-05-09 17:02 | HP ---
ADMIT DATE: 05/08/2018 HISTORY OF PRESENT ILLNESS: The patient is a 47-year-old -Irish female patient, who came to the Emergency Room, complaining of chest pain in her upper abdomen and retrosternally. She said that she is known to have irritable bowel syndrome, but her symptoms at this time is different. The patient is known to have multiple risk factors for coronary artery disease including diabetes, high cholesterol and hypertension and the patient was evaluated in the Emergency Room. Her EKG showed that she was in sinus rhythm with a heart rate of 79 beats per minute, no finding of acute ST elevation myocardial infarction. Her first set of cardiac enzyme was normal at less than 0.017 and therefore, she was admitted to consult the Cardiology team to check her fasting lipid profile. PAST MEDICAL HISTORY: Significant for hypertension, hyperlipidemia, gastroesophageal reflux disease, pancreatitis, hypothyroidism, type 2 diabetes. She apparently had had an echocardiogram done in 11/23/2017 showed left ventricular systolic function that was normal with an ejection fraction within normal range at 65%, normal left ventricular segmental wall motion. PAST SURGICAL HISTORY: Significant for unilateral oophorectomy, appendectomy, hysterectomy, and hypertension. FAMILY HISTORY: Positive for cancer and hypertension. SOCIAL HISTORY: She does not smoke, drinks alcohol, or use recreational drugs. ALLERGIES: She has no known drug allergies. MEDICATIONS: She is currently on following medications: She is on tizanidine 6 mg as needed for muscle spasm, amlodipine 5 mg once a day, tramadol 50 mg twice a day as needed, metformin 1000 mg twice a day and glimepiride 4 mg daily. She said that she is also on Crestor, although that was not on the list here. REVIEW OF SYSTEMS: As per history of present illness. PHYSICAL EXAMINATION: GENERAL: On arrival to the Emergency Room, she looked well and was clearly in no apparent respiratory distress. No pallor, jaundice, cyanosis, or thyromegaly. No jugular venous distension. No limb edema. VITAL SIGNS: Her heart rate was 69, blood pressure was 149/96, temperature was 97.6, respiratory rate 20, and oxygen saturation was 96%. HEAD, EYES, EARS, NOSE, AND THROAT: Showed normocephalic, atraumatic. NECK: Supple. HEART: Showed normal first and second sounds. No gallop, rub or murmur. CHEST: Clear to auscultation. No crepitation or rhonchi. ABDOMEN: Distended, soft, nontender. NEUROLOGIC: She was awake, alert, responding appropriately. All cranial nerves intact. EXTREMITIES: She moves extremities without difficulty. She ambulates without assistance or assistive devices. LABORATORY DATA: On admission showed her serum sodium 139, potassium 3.8, chloride 101, bicarbonate 31, anion gap of 7, BUN 17, creatinine 0.7, estimated GFR was 180 mL per minute. Her glucose was 103, calcium 9.3 and magnesium 2. Total bilirubin, AST, ALT, alkaline phosphatase were normal. Her first set of cardiac enzymes showed troponin to be less than 0.017. Total protein was 7.5, albumin 3.4, lipase 116. Her prothrombin time was 9.9, INR of 1, aPTT was 26. D-dimer was 1.12 mg/dL. Her white cell count was 6700, hemoglobin 14, hematocrit 42, MCV 85, and platelet count of 192,000. Urinalysis was essentially unremarkable. She had had a chest x-ray, which showed that the heart size and pulmonary vasculature are normal. No infiltrate or effusion, and sparing of the thoracic spine is noted, but no pneumothorax given high elevated D-dimer. She has had CT angio of chest, which was negative for pulmonary arterial thromboembolic disease and had a Doppler ultrasound of both lower extremities. PLAN: The patient was admitted to do 2 more sets of cardiac enzymes, check her fasting lipid profile and to consult the cardiology team. Meanwhile, she is to continue with all her medication. EBONI RAMÍREZ MD DR: MIGUEL A/thomas JOB#: [id number] / [id number]
--- NOTE | 2018-05-09 17:29 | DS ---
DATE OF DISCHARGE: HISTORY OF PRESENT ILLNESS: The patient is a 47-year-old -[place] female patient who came to the Emergency Room complaining of epigastric and retrosternal chest pain. She has had her first set of cardiac enzyme that was less than 0.017, was admitted and was seen by the ultrasound spec. They transpired that she was extensively investigated before here and she had an echocardiogram done on 11/23/2017 which showed that her left ventricular systolic function is normal with an ejection fraction is within normal limit. Ejection fraction was 65%. There is normal left ventricular segmental wall motion. She also underwent nuclear stress test on 01/17/2018, which showed that the radioisotope stress test did not show any evidence of ischemia or infarct. She has normal left ventricular systolic function with ejection fraction of 70% and was considered as a lower risk factor. In fact, she underwent cardiac catheterization again on 10/31/2013, at that time, she has only 20% ostial stenosis in the left main. Her left anterior descending, left circumflex and right coronary artery are all normal. She has had her fasting lipid profile showing that her triglycerides were high at 245, total cholesterol was 215 and LDL cholesterol was 134, VLDL was 49, and HDL cholesterol was 32, the ratio was 6. The patient was advised to follow up with her primary care physician. She was apparently on Crestor. She does not know the dose of that. I advised her to take it regularly and follow up with Dr. Tapia. She is diabetic and needs to have her LDL below 70 mg/dL. PHYSICAL EXAMINATION: GENERAL: When I saw her this afternoon, she was resting slightly propped up in bed, in no apparent distress. VITAL SIGNS: Her heart rate was 74, blood pressure 128/81, temperature was 98.2, respiratory rate 20, and oxygen saturation was 96% on room air. The rest of clinical examination is unremarkable. Her lab work is stable. She was discharged to continue on amlodipine 5 mg once a day, glimepiride 4 mg daily, metformin 1000 mg daily, tizanidine 6 mg daily, tramadol 50 mg as needed twice a day. FINAL DISCHARGE DIAGNOSES: 1. Chest pain, atypical, no evidence of myocardial infarction. No EKG changes. She had a negative stress test in December and an echo with normal left ventricular systolic function, ejection fraction. 2. Hypertensive heart rate, blood pressure is reasonably controlled. 3. Type 2 diabetes, for which she is on metformin. 4. She apparently is known to have C4-C5 neural foraminal disk disease. For which, she needs to follow with her primary care physician. 5. Hyperlipidemia, poorly controlled. To follow with her primary care physician. EBONI RAMÍREZ MD DR: MIGUEL A/thomas JOB#: [id number] / [id number]
--- NOTE | 2018-05-09 18:35 | RAD ---
Examination: VENOUS LOWER EXT BILATERAL History: Chest pain Comparison/Correlation: None Findings: Bilateral upper and lower extremity venous duplex ultrasound exam was performed. Color Doppler, spectral Doppler, and grayscale imaging was performed. Compression and augmentation utilized. Bilateral common femoral vein, superficial femoral vein, popliteal vein, greater saphenous veins, and visualized calf veins are normal. Partially visualized profunda femoris vein bilaterally is normal. Impression: Normal bilateral lower extremity venous duplex ultrasound exam. No DVT identified to involve the right or left lower extremity. Electronically signed by: Carlos Pastor MD (05/09/2018 6:31 PM) [facility]
[2018-05-11] MEDS ORDERED: metFORMIN 500 MG TABLET PO SCH (08:00)
== END 2018-05-09 17:34 | disposition home or self-care (01) ==
LOC: ER 17:47 → 1 SOUTH 22:04 → INTOOBSV 22:04
PROVIDERS: ADMIT Internal Medicine; ATTEND Internal Medicine
DX: R07.2 Precordial pain (principal); I11.9 Hypertensive heart disease without heart failure; E11.9 Type 2 diabetes mellitus without complications; E78.5 Hyperlipidemia, unspecified; K21.9 Gastro-esophageal reflux disease without esophagitis; K85.90 Acute pancreatitis without necrosis or infection, unspecified; E03.9 Hypothyroidism, unspecified; E78.00 Pure hypercholesterolemia, unspecified; M48.02 Spinal stenosis, cervical region; Z90.49 Acquired absence of other specified parts of digestive tract; Z90.710 Acquired absence of both cervix and uterus; Z79.899 Other long term (current) drug therapy; Z90.721 Acquired absence of ovaries, unilateral; Z82.49 Family history of ischemic heart disease and other diseases of the circulatory system
CPT/HCPCS: 36415; 71046; 71275; 80048; 80061; 80076; 80307; 81001; 82553; 82947; 83690; 83735; 83880; 84443; 84484; 85025; 85379; 85610; 85730; 87086; 93005; 93970; 96361; 96372; 96374; 96375; 96376; 99284; G0378; J1650; J2270; J2405; J7120; Q9967; G0379; 99285-25

== ENCOUNTER → 2018-05-24 | Outpatient (CLI) | payer OTHER ==
[2018-05-09 15:44] VITALS: BP 128/81
--- NOTE | 2018-05-28 14:01 | RAD ---
DATE: 05/24/2018 EXAM: DIGITAL SCREEN BILAT W/CAD HISTORY: Screening mammogram COMPARISON: Screening mammogram 03/10/2017 This study was interpreted with the benefit of Computerized Aided Detection (CAD). The breast parenchyma shows scattered fibroglandular densities. Breast parenchyma level B. FINDINGS: Bilateral digital 2-D and 3-D tomosynthesis CC and MLO views. There is an asymmetry in the right breast on the MLO view 6.7 cm posterior to the nipple line, middle depth. No suspicious mass, calcification or architectural distortion in the left breast. IMPRESSION: Right breast asymmetry only seen on the MLO view. Spot compression MLO view, full field MLO view and same-day ultrasound, if needed, is recommended. BI-RADS CATEGORY: 0 INCOMPLETE: NEEDS ADDITIONAL IMAGING EVALUATION AND/OR PRIOR MAMMOGRAMS FOR COMPARISON. RECOMMENDED FOLLOW-UP: ADD ADDITIONAL IMAGING PQRS compliance statement: Patient information was entered into a reminder system with a target due date for the next mammogram. Mammography is a sensitive method for finding small breast cancers, but it does not detect them all and is not a substitute for careful clinical examination. A negative mammogram does not negate a clinically suspicious finding and should not result in delay in biopsying a clinically suspicious abnormality. "Our facility is accredited by the [employer] Mammography Program."
== END | disposition home or self-care (01) ==
LOC: MAMMO 11:34
PROVIDERS: ATTEND Family Medicine
DX: Z12.31 Encounter for screening mammogram for malignant neoplasm of breast (principal)
CPT/HCPCS: 77067

== ENCOUNTER → 2018-06-13 | Outpatient (CLI) | payer OTHER ==
[~2018-06-13] MED LIST changes: +AMLO5TAB10 PO; -AMLO5TAB7 PO; +OMEP20CA10 PO; -OMEP20CA9 PO
--- NOTE | 2018-06-13 16:27 | RAD ---
DATE: 06/13/2018 EXAM: DIGITAL DIAGNOSTIC RT, BREAST RIGHT HISTORY: Suspicious screening study COMPARISON: 05/24/2018 This study was interpreted with the benefit of Computerized Aided Detection (CAD). Breast Density: SCATTERED The breast parenchyma shows scattered fibroglandular densities. Breast parenchyma level B. FINDINGS: The screening study demonstrated a heterogeneous multinodular fibroglandular pattern in both breasts. On the right oblique screening mammogram and tomosynthesis images a small 6 mm nodule was noted posteriorly just medial to the midline which appeared more prominent than on previous studies. Today we performed additional spot compression cc and oblique views as well as a straight mediolateral view. This small nodule is less clearly defined on today's images due to overlying fibroglandular shadows. It was best delineated on the original oblique tomosynthesis images #52. Right breast ultrasound, 06/13/2018: A targeted ultrasound exam of the medial right breast was performed from the 12:00 to 6:00 locations. Mildly dilated ducts are evident centrally. No intraluminal mass is seen. At the 2:00 location approximately 7 cm from the nipple there is a 4 x 5 x 2.5 mm oval-shaped hypoechoic nodule. Its margins are smooth. No internal color flow is seen. It is wider than tall. No definite posterior acoustic enhancement or shadowing is seen. This is likely a complicated cyst or small fibroadenoma. At the 3:00 location approximately 4 cm from the nipple there is a similar elongated 5 x 3 x 2.5 cm nodule. It demonstrates a sharp posterior acoustic wall and low level internal echoes. This is probably a cyst. It is unclear which one of these nodules may correspond to the one view mammographic finding. No other discrete nodule or highly suspicious sonographic finding was seen. IMPRESSION: 1. Probably benign right breast nodules as described above. Follow-up right mammography and right breast ultrasound in 6 months is suggested.. 2. Mildly dilated ducts in the right breast. BI-RADS CATEGORY: 3 PROBABLY BENIGN FINDING(S)-SHORT INTERVAL FOLLOW-UP SUGGESTED RECOMMENDED FOLLOW-UP: 6M 6 MONTH FOLLOW-UP PQRS compliance statement: Patient information was entered into a reminder system with a target due date for the next mammogram. Mammography is a sensitive method for finding small breast cancers, but it does not detect them all and is not a substitute for careful clinical examination. A negative mammogram does not negate a clinically suspicious finding and should not result in delay in biopsying a clinically suspicious abnormality. "Our facility is accredited by the [employer] Mammography Program."
== END | disposition home or self-care (01) ==
LOC: MAMMO 14:07
PROVIDERS: ATTEND Family Medicine
DX: R92.8 Other abnormal and inconclusive findings on diagnostic imaging of breast (principal)
CPT/HCPCS: 76641; 77065

== ENCOUNTER → 2018-10-01 | Outpatient (CLI) | payer OTHER ==
[~2018-10-01] MED LIST changes: +IOHEXOL 240 MG/ML 50ML VIAL. ONE; +IOHEXOL 300 MG/ML 75 ML VIAL. IV ONE; -OMEP20CA10 PO; +OMEP20CA9 PO
--- NOTE | 2018-10-01 17:02 | RAD ---
EXAM: CT ABDOMEN/PELVIS WITH CONTRAST. HISTORY: Abdominal pain. Elevated lipase. TECHNIQUE: Computed tomography of the abdomen and pelvis was performed after the intravenous administration of iodinated contrast. COMPARISON: 05/04/2018. FINDINGS: Lung windows through the visualized portions of the bases reveal mild atelectasis. Bone windows reveal no suspicious lesions. The gallbladder is surgically absent. The liver is at least mildly enlarged. The spleen is at the upper limits of normal size at 13 cm. A tiny fat attenuation lesion within the pancreatic head may represent a normal slip of intra-abdominal fat. The pancreatic duct is not dilated and no suspicious lesions are identified. The common duct measures 6 mm. The adrenal glands and kidneys are unremarkable. There are no pathologically enlarged lymph nodes. The uterus is surgically absent. The left ovary remains and contains relatively dense 2.7 x 1.8 cm nodule. This is not clearly changed since the prior study. The appendix is surgically absent. Prominent phleboliths are noted along the right gonadal vein and are stable. A small supraumbilical hernia contains only fat. There is diastases of the rectus muscles more inferiorly. There is no small bowel obstruction. IMPRESSION: 1. The pancreas is unremarkable by CT. No biliary dilatation status post cholecystectomy. 2. Mild hepatosplenomegaly. 3. A 2.7 cm dense nodule along the left ovary may represent an endometrioma or complicated cyst. It is not clearly changed. Sonographic follow-up could be considered in one year if the diagnosis is not already known. 4. Small supraumbilical hernia containing only fat. *One or more of the following individualized dose reduction techniques were utilized for this examination: 1. Automated exposure control. 2. Adjustment of the mA and/or kV according to patient size. 3. Use of iterative reconstruction technique. Electronically signed by: Monique Cordova MD (10/01/2018 4:58 PM) [facility]
== END | disposition home or self-care (01) ==
LOC: CT 13:02
PROVIDERS: ATTEND Family Medicine
DX: R16.2 Hepatomegaly with splenomegaly, not elsewhere classified (principal); K43.9 Ventral hernia without obstruction or gangrene; M62.08 Separation of muscle (nontraumatic), other site; I87.8 Other specified disorders of veins; J98.11 Atelectasis; N83.9 Noninflammatory disorder of ovary, fallopian tube and broad ligament, unspecified
CPT/HCPCS: 74177; Q9967

== ENCOUNTER → 2018-10-29 | Outpatient (CLI) | payer OTHER ==
[~2018-10-29] MED LIST changes: -IOHEXOL 240 MG/ML 50ML VIAL. ONE; -IOHEXOL 300 MG/ML 75 ML VIAL. IV ONE; +OMEP20CA10 PO; -OMEP20CA9 PO
--- NOTE | 2018-10-29 17:39 | RAD ---
Examination: SHOULDER 2+V LEFT History: Shoulder pain Comparison/Correlation: None Findings: Total 3 images of the right shoulder were obtained. Joint spaces are unremarkable. Minimal spurring of the glenohumeral joint inferiorly suggested. No acute fracture or bony destruction. Soft tissues are unremarkable. Visualized left upper lung field is unremarkable. Impression: No significant degenerative change. Unremarkable exam. Electronically signed by: Carlos Psator MD (10/29/2018 5:37 PM) [facility]
--- NOTE | 2018-10-29 17:52 | RAD ---
Examination: LUMBAR SPINE 2-3V History: Back pain Comparison/Correlation: None Findings: Total 3 images of the lumbar spine were obtained. Alignment is normal. Spurring is notable involving the low thoracic and lumbar spine at multiple levels. Vertebral body heights are mostly adequate with moderate L1-2 disc space narrowing is mild. No displaced fracture or bony destruction. Mild facet joint degenerative changes of the low lumbar spine noted. Right upper cord surgical clips are present. Impression: No acute process. Mild degenerative change. Electronically signed by: Carlos Pastor MD (10/29/2018 5:49 PM) [facility]
== END | disposition home or self-care (01) ==
LOC: PMG 14:52
PROVIDERS: ATTEND Registered Nurse
DX: M47.816 Spondylosis without myelopathy or radiculopathy, lumbar region (principal); M48.061 Spinal stenosis, lumbar region without neurogenic claudication; M75.92 Shoulder lesion, unspecified, left shoulder
CPT/HCPCS: 72100; 73030

== ENCOUNTER → 2018-12-03 | Outpatient (CLI) | payer OTHER ==
--- NOTE | 2018-12-04 13:50 | RAD ---
DATE: 12/03/2018 EXAM: MAMMO JAMEL DIAG RT, BREAST RIGHT HISTORY: Abnormal mammogram. Follow-up of right breast nodule. COMPARISON: 06/13/2018 right unilateral diagnostic mammogram, right breast ultrasound 06/13/2018 This study was interpreted with the benefit of Computerized Aided Detection (CAD). Breast Density: SCATTERED The breast parenchyma shows scattered fibroglandular densities. Breast parenchyma level B. FINDINGS: Parenchymal distribution is stable. Small mass at the right inner lower breast is stable. No new masses or distortion. No suspicious calcifications. The right breast 2:00 region 7 cm from nipple, there is a 0.5 cm x 0.8 cm x 0.2 cm nonvascular mass. At the 3:00 region 4 cm from nipple, there is a 0.4 cm x 0.2 cm x 0.2 cm nonvascular mass. IMPRESSION: No significant change in right breast masses. Follow-up ultrasound exam at the time of annual screening is recommended to assess stability. BI-RADS CATEGORY: 3 PROBABLY BENIGN FINDING(S)-SHORT INTERVAL FOLLOW-UP SUGGESTED RECOMMENDED FOLLOW-UP: 6M 6 MONTH FOLLOW-UP PQRS compliance statement: Patient information was entered into a reminder system with a target due date in 6 months for the next mammogram. Mammography is a sensitive method for finding small breast cancers, but it does not detect them all and is not a substitute for careful clinical examination. A negative mammogram does not negate a clinically suspicious finding and should not result in delay in biopsying a clinically suspicious abnormality. "Our facility is accredited by the [employer] Mammography Program."
== END | disposition home or self-care (01) ==
LOC: MAMMO 12:52
PROVIDERS: ATTEND Registered Nurse
DX: N63.12 Unspecified lump in the right breast, upper inner quadrant (principal); N63.14 Unspecified lump in the right breast, lower inner quadrant
CPT/HCPCS: 76641; 77065; G0279; 77061

== ENCOUNTER 2018-12-12 22:18 | Inpatient (IN) | payer OTHER ==
[~2018-12-12] VITALS: Ht 170.2 cm; Wt 145.2 kg
--- NOTE | 2018-12-12 22:22 | ED.ADGEN ---
Past History Past Medical History: Diabetes, GERD, High Cholesterol, Hypertension, Pancreatitis, UTI Past Surgical History: Appendectomy, Cholecystectomy, Hysterectomy Alcohol Use: None Drug Use: None Adult General Chief Complaint Chief Complaint ".. My sugars are up.. I got epigastric pain.. and abdomen pain.. it jonas started yesterday..." " ... It is jonas like my pancreatitis pain.. " HPI HPI Patient is a 38 year old FEMALE who presents with sternal chest pain, epigastric pain, elevated Glucose and malaise the last two days. Patient relates her chest pain does have some pleuritic components. Pt. describes pain as more of an uncomfortable feeling. Patient has had a history of pancreatitis in the past and does admit to recent intake of wine. Patient has history of diabetes, hypertension, elevated lipids, ., Pt. follows with Dr. Tapia. Patient denies immunosuppression. Patient denies any travel. Patient denies specific ill contacts. Patient denies any trauma. Patient denies any intake bad food. Review of Systems Review of Systems Constitutional: Denies fever or chills [] Eyes: Denies change in visual acuity, redness, or eye pain [] HENT: Denies nasal congestion or sore throat [] Respiratory: Denies cough or shortness of breath [] Cardiovascular: No additional information not addressed in HPI [] GI: Complaints of of abdominal pain, nausea,. Denies vomiting, bloody stools or diarrhea [] : Denies dysuria or hematuria [] Musculoskeletal: Denies back pain or joint pain [] Integument: Denies rash or skin lesions [] Neurologic: Denies headache, focal weakness or sensory changes [] Endocrine: Denies polyuria or polydipsia [] All other systems were reviewed and found to be within normal limits, except as documented in this note. Family History Family History Noncontributory Current Medications Current Medications Current Medications Medications (Trade) Dose Ordered Sig/Lolis Start Time Stop Time Status Last Admin Dose Admin Aspirin (Children'S Aspirin) 324 mg 1X ONCE 12/12/18 23:30 12/12/18 23:31 DC 12/12/18 23:08 324 MG Famotidine (Pepcid Vial) 20 mg 1X ONCE 12/12/18 23:30 12/12/18 23:31 DC 12/12/18 23:08 20 MG Lactated Ringer's 1,000 ml @ 1,000 mls/hr Q1H 12/12/18 23:30 12/13/18 00:29 DC 12/12/18 23:08 1,000 MLS/HR Allergies Allergies Allergies Coded Allergies Type Severity Reaction Last Updated Verified No Known Drug Allergies 05/08/18 No Physical Exam Physical Exam Constitutional: Moderate acute distress, non-toxic appearance. [] HENT: Normocephalic, atraumatic, bilateral external ears normal, oropharynx moist, no oral exudates, nose normal. [] Eyes: PERRLA, EOMI, conjunctiva normal, no discharge. [] Neck: Normal range of motion, no tenderness, supple, no stridor. [] Cardiovascular:Heart rate regular rhythm, no murmur [] Lungs & Thorax: Bilateral breath sounds equal at apexes on auscultation [] Abdomen: Bowel sounds normal, soft, epi gastric tenderness, no masses, no pulsatile masses. [] Pt. declines rectal at this time. ( no hx of tarry stools). Obese. Multiple surgery scars Skin: Warm, dry, no erythema, no rash. [] Back: No tenderness, no CVA tenderness. [] Extremities: No tenderness, no cyanosis, no clubbing, ROM intact, no edema. []No cording appreciated Neurologic: Alert and oriented X 3, normal motor function, normal sensory function, no focal deficits noted. [] Psychologic: Affect anxious, judgement normal, mood normal. [] Current Patient Data Vital Signs Lab Results Laboratory Tests Test 12/12/18 22:20 12/12/18 22:30 12/12/18 22:55 Urine Collection Type Unknown Urine Color Yellow Urine Clarity Clear Urine pH 5.0 Urine Specific Orange 1.025 Urine Protein Neg (NEG-TRACE) Urine Glucose (UA) Neg mg/dL (NEG) Urine Ketones (Stick) Neg mg/dL (NEG) Urine Blood Neg (NEG) Urine Nitrite Neg (NEG) Urine Bilirubin Neg (NEG) Urine Urobilinogen Dipstick 0.2 mg/dL (0.2 mg/dL) Urine Leukocyte Esterase Small (NEG) Urine RBC 0 /HPF (0-2) Urine WBC 5-10 /HPF (0-4) Urine Squamous Epithelial Cells Many /LPF Urine Bacteria Few /HPF (0-FEW) Urine Opiates Screen Neg (NEG) Urine Methadone Screen Neg (NEG) Urine Barbiturates Neg (NEG) Urine Phencyclidine Screen Neg (NEG) Urine Amphetamine/Methamphetamine Neg (NEG) Urine Benzodiazepines Screen Neg (NEG) Urine Cocaine Screen Neg (NEG) Urine Cannabinoids Screen Neg (NEG) Urine Ethyl Alcohol Neg (NEG) White Blood Count 7.1 x10^3/uL (4.0-11.0) Red Blood Count 4.59 x10^6/uL (3.50-5.40) Hemoglobin 13.4 g/dL (12.0-15.5) Hematocrit 40.3 % (36.0-47.0) Mean Corpuscular Volume 88 fL (79-100) Mean Corpuscular Hemoglobin 29 pg (25-35) Mean Corpuscular Hemoglobin Concent 33 g/dL (31-37) Red Cell Distribution Width 14.9 % (11.5-14.5) H Platelet Count 230 x10^3/uL (140-400) Neutrophils (%) (Auto) 65 % (31-73) Lymphocytes (%) (Auto) 25 % (24-48) Monocytes (%) (Auto) 7 % (0-9) Eosinophils (%) (Auto) 2 % (0-3) Basophils (%) (Auto) 1 % (0-3) Neutrophils # (Auto) 4.6 x10^3uL (1.8-7.7) Lymphocytes # (Auto) 1.8 x10^3/uL (1.0-4.8) Monocytes # (Auto) 0.5 x10^3/uL (0.0-1.1) Eosinophils # (Auto) 0.2 x10^3/uL (0.0-0.7) Basophils # (Auto) 0.0 x10^3/uL (0.0-0.2) Prothrombin Time 10.2 SEC (9.4-11.4) Prothrombin Time INR 1.0 (0.9-1.1) Activated Partial Thromboplast Time 27 SEC (23-33) D-Dimer (Ya) 1.03 mg/L (0.00-0.50) H Sodium Level 140 mmol/L (136-145) Potassium Level 3.2 mmol/L (3.5-5.1) L Chloride Level 104 mmol/L (98-107) Carbon Dioxide Level 30 mmol/L (21-32) Anion Gap 6 (6-14) Blood Urea Nitrogen 17 mg/dL (7-20) Creatinine 0.9 mg/dL (0.6-1.0) Estimated GFR (Cockcroft-Gault) 80.5 Glucose Level 162 mg/dL (70-99) H Calcium Level 9.0 mg/dL (8.5-10.1) Magnesium Level 1.8 mg/dL (1.8-2.4) Total Bilirubin 0.5 mg/dL (0.2-1.0) Direct Bilirubin 0.1 mg/dL (0.0-0.2) Aspartate Amino Transferase (AST) 15 U/L (15-37) Alanine Aminotransferase (ALT) 29 U/L (14-59) Alkaline Phosphatase 98 U/L (46-116) Creatine Kinase 109 U/L (26-192) Troponin I Quantitative < 0.017 ng/mL (0-0.055) ZP-Fpu-H-Type Natriuretic Peptide < 5 pg/mL (0-124) Total Protein 7.0 g/dL (6.4-8.2) Albumin 3.4 g/dL (3.4-5.0) Amylase Level 58 U/L (25-115) Lipase 199 U/L (73-393) Ethyl Alcohol Level < 10 mg/dL (0-10) POC Urine HCG, Qualitative hcg negative (Negative) EKG EKG My interpretation of EKG shows a sinus rhythm at 75 bpm. No acute morphology.[] Radiology/Procedures Radiology/Procedures [][address] [address] IMAGING REPORT Signed PATIENT: KARO STEWART NACCOUNT: [id number] : 1970 LOCATION: ER AGE: 48 SEX: F EXAM STATUS: REG ER ORD. PHYSICIAN: WILLIAM FINE MD REASON: Chest and abdomen pain today PROCEDURE: ABDOMEN SUPINE & UPRIGHT Exam: Chest 2 views. Abdomen 2 views INDICATION: Chest and abdominal pain TECHNIQUE: Frontal and lateral views of the chest. Upright and supine views of the abdomen Comparisons: None FINDINGS: The cardiomediastinal silhouette and pulmonary vessels are within normal limits. The lung and pleural spaces are clear. Air and stool are seen throughout the colon to the level of the rectum and nonobstructive bowel gas pattern. No suspicious masses or calcifications. No free air. Visualized osseous structures are unremarkable. IMPRESSION: 1. No acute cardiopulmonary process. 2. Nonobstructive bowel gas pattern. Electronically signed by: Elmer Deshpande MD (12/12/2018 11:34 PM) [facility] DICTATED AND SIGNED BY: ELMER DESHPANDE MD DATE: 12/12/18 [id number] CC: WILLIAM FINE MD; KATERINA TAPIA MD ~ Course & Med Decision Making Course & Med Decision Making Pertinent Labs and Imaging studies reviewed. (See chart for details) Heart score 3- [address] Toth for further eval. and tx. [] Final Impression Final Impression 1. Chest Pain 2, Epigastric Pain[] 3. Diabetes glucose 160 4. Hypokalemia . 3.2 5. UTI 5-10 WBCs 6. Elevated d-dimer 1.03 Dragon Disclaimer Dragon Disclaimer This electronic medical record was generated, in whole or in part, using a voice recognition dictation system. Dragon Disclaimer This chart was dictated in whole or in part using Voice Recognition software in a busy, high-work load, and often noisy Emergency Department environment. It may contain unintended and wholly unrecognized errors or omissions. WILLIAM FINE MD Dec 12, 2018 22:22
[2018-12-12 23:17] LABS: BASO % 1 % (0-3); EOS # 0.2 x10^3/uL (0.0-0.7); EOS % 2 % (0-3); HEMATOCRIT 40.3 % (36.0-47.0); HEMOGLOBIN 13.4 g/dL (12.0-15.5); LYMPH # 1.8 x10^3/uL (1.0-4.8); LYMPH % 25 % (24-48); MEAN CORPUSCULAR HEMOGLOBIN 29 pg (25-35); MEAN CORPUSCULAR HGB CONC 33 g/dL (31-37); MEAN CORPUSCULAR VOLUME 88 fL (79-100); MONO # 0.5 x10^3/uL (0.0-1.1); MONO % 7 % (0-9); NEUT # 4.6 x10^3uL (1.8-7.7); NEUT % 65 % (31-73); PLATELET COUNT 230 x10^3/uL (140-400); RED BLOOD COUNT 4.59 x10^6/uL (3.50-5.40); RED CELL DISTRIBUTION WIDTH 14.9 % (11.5-14.5); WHITE BLOOD COUNT 7.1 x10^3/uL (4.0-11.0)
[2018-12-12 23:22] LABS: BARBITURATES NEG (NEG); BENZODIAZEPINES NEG (NEG); CANNABINOIDS NEG (NEG); COCAINE NEG (NEG); METHADONE NEG (NEG); OPIATES NEG (NEG); PHENCYCLIDINE NEG (NEG)
[2018-12-12 23:24] LABS: BACTERIA,URINE FEW /HPF (0-FEW); BILIRUBIN,URINE NEG (NEG); CLARITY,URINE CLEAR; COLOR,URINE YELLOW; GLUCOSE,URINE NEG (NEG); NITRITE,URINE NEG (NEG); RBC,URINE 0 /HPF (0-2); SQUAMOUS EPITHELIAL CELL,UR MANY /LPF; UROBILINOGEN,URINE 0.2 mg/dL (0.2 mg/dL)
[2018-12-12 23:27] LABS: AMPHETAMINE/METHAMPHETAMINE NEG (NEG)
[2018-12-12 23:30] LABS: ALBUMIN 3.4 g/dL (3.4-5.0); ALK PHOS 98 U/L (46-116); ALT (SGPT) 29 U/L (14-59); AMYLASE 58 U/L (25-115); ANION GAP 6 (6-14); AST (SGOT) 15 U/L (15-37); BLOOD UREA NITROGEN 17 mg/dL (7-20); CARBON DIOXIDE 30 mmol/L (21-32); CHLORIDE 104 mmol/L (98-107); CREATININE 0.9 mg/dL (0.6-1.0); DIRECT BILIRUBIN 0.1 mg/dL (0.0-0.2); GFR 80.5; GLUCOSE 162 mg/dL (70-99); LIPASE 199 U/L (73-393); MAGNESIUM 1.8 mg/dL (1.8-2.4); POTASSIUM 3.2 mmol/L (3.5-5.1); SODIUM 140 mmol/L (136-145); TOTAL BILIRUBIN 0.5 mg/dL (0.2-1.0)
[2018-12-12] MEDS ORDERED: FAMOTIDINE 20 MG/2 ML VIAL IVP ONE (23:30)
[2018-12-12] MEDS ORDERED: ASPIRIN 81 MG TAB.CHEW PO ONE (23:30)
[2018-12-12] MEDS ORDERED: IV RINGERS SOLUTION,LACTATED 1,000 ML IV SCH (23:30)
--- NOTE | 2018-12-12 23:37 | RAD ---
Exam: Chest 2 views. Abdomen 2 views INDICATION: Chest and abdominal pain TECHNIQUE: Frontal and lateral views of the chest. Upright and supine views of the abdomen Comparisons: None FINDINGS: The cardiomediastinal silhouette and pulmonary vessels are within normal limits. The lung and pleural spaces are clear. Air and stool are seen throughout the colon to the level of the rectum and nonobstructive bowel gas pattern. No suspicious masses or calcifications. No free air. Visualized osseous structures are unremarkable. IMPRESSION: 1. No acute cardiopulmonary process. 2. Nonobstructive bowel gas pattern. Electronically signed by: Elmer Patten MD (12/12/2018 11:34 PM) [facility]
[2018-12-13] MEDS: POTASSIUM CHLORIDE 20 MEQ TABLET.ER. PO SCH ×2 (00:56→08:31)
[2018-12-13] MEDS: MORPHINE SULFATE 10 MG/ML SYRINGE. SQ PRN ×3 (00:57→16:13)
[2018-12-13] MEDS ORDERED: ANTI-COAG MONITOR BY PHARMACY. MC PRN (01:00)
[2018-12-13] MEDS ORDERED: CONTRAST GIVEN MC PRN (01:00)
[2018-12-13] MEDS ORDERED: IOHEXOL 350 MG/ML 100 ML VIAL. IV ONE (01:15)
[2018-12-13] MEDS ORDERED: IOHEXOL 240 MG/ML 50ML VIAL. PO ONE (01:15)
[2018-12-13] MEDS ORDERED: IV NORMAL SALINE 50ML 50 ML ONE (01:47)
[2018-12-13] MEDS ORDERED: cefTRIAXone SODIUM 1 GM VIAL ONE (01:47)
[2018-12-13] MEDS: ENOXAPARIN ** NOTE DOSE ** SYRINGE SQ SCH ×3 (01:57→21:13)
[2018-12-13] MEDS: IV RINGERS SOLUTION,LACTATED 1,000 ML IV SCH ×4 (01:58→21:41)
--- NOTE | 2018-12-13 03:11 | RAD ---
CTA chest abdomen and pelvis with contrast dated 12/13/2018. Comparison made to 10/01/2018. Clinical data indication: Chest pain. Elevated d-dimer. TECHNIQUE: Contiguous axial imaging the chest performed following the intravenous administration of intravenous contrast. Study was performed as dedicated PE protocol with thin cut coronal MIPS 3-D reconstruction. In addition, imaging of the abdomen and pelvis was performed in the venous phase. One or more of the following individualized dose reduction techniques were utilized for this examination: 1. Automated exposure control 2. Adjustment of the mA and/or kV according to patient size 3. Use of iterative reconstruction technique. FINDINGS: Contrast bolus is adequate. No evidence of central, lobar or segmental pulmonary embolus. Subsegmental branches are not well evaluated based on technique. Heart size within normal limits. No pericardial effusion. No mediastinal, hilar or axillary lymphadenopathy. Thyroid gland is unremarkable. Central airways are patent. Lungs are clear. No consolidation or pleural effusion. No pneumothorax. Liver, spleen, pancreas, adrenal glands unremarkable. Gallbladder is surgically absent. Kidneys are symmetric in size and enhancement. No hydronephrosis. Images of GI tract normal in caliber and contour. No inflammatory changes in the mesentery. No focal bowel wall thickening. There are a few scattered diverticula within the colon. The appendix is not identified and likely surgically absent. No ascites or lymphadenopathy. Abdominal aorta normal in caliber. Images of pelvis show nondistended urinary bladder. The uterus is surgically absent. No free fluid or lymphadenopathy. There is a nodular focus along the left internal iliac chain that may be associated with the left ovary measuring about 2.5 cm in size, unchanged from prior exam. No free fluid or lymphadenopathy. No acute bony abnormality. Multilevel spondylosis. IMPRESSION CHEST: 1. No evidence of central, lobar or segmental pulmonary embolus. 2. Clear lungs. Impression abdomen pelvis: 1. No acute abnormality of abdomen or pelvis. 2. Diverticulosis with no evidence of acute diverticulitis. 3. Status post cholecystectomy, hysterectomy and appendectomy. 4. Indeterminate nodular density in the left pelvis could be associated with the left ovary. This is stable from prior exam. Continued follow-up imaging may be warranted to ensure stability. Electronically signed by: Cleveland Saleh MD (12/13/2018 3:09 AM) [facility]
--- NOTE | 2018-12-13 04:01 | RAD ---
Bilateral lower extremity venous Doppler dated 12/13/2018. No comparison available. Clinical data indication: Shortness of breath and bilateral leg swelling. FINDINGS: Grayscale, color-flow and spectral waveform analysis performed to include the deep venous system of both lower extremity. Normal compressibility, phasicity and augmentation of flow throughout. No filling defects are seen. IMPRESSION: No evidence of lower extremity deep vein thrombosis. Electronically signed by: Cleveland Saleh MD (12/13/2018 3:58 AM) [facility]
[2018-12-13] MEDS: ONDANSETRON PF 4 MG/2 ML VIAL. IV PRN ×3 (04:28→19:50)
[2018-12-13 04:36] VITALS: BP 118/74
--- NOTE | 2018-12-13 06:37 | EKG ---
[address] [address] Test Date: 2018-12-12 Test Time: 22:31:47 Pat Name: KARO STEWART Department: Room: 121 A Gender: F Mobile Therapist: FLORENTINO : 1970 Requested By: WILLIAM FINE Order Number: [id number] Reading MD: Dontrell Clark MD Measurements Intervals Sharon Rate: 75 P: 37 TN: 162 QRS: 50 QRSD: 78 T: -9 QT: 366 QTc: 411 Interpretive Statements SINUS RHYTHM NON-SPECIFIC ST/T CHANGES Electronically Signed On 12-20-2018 16:51:42 CDT by Dontrell Clark MD
[2018-12-13] MEDS: IPRATRPIUM/ALBUTEROL 0.5/2.5MG 3 ML NEBU. NEB SCH ×4 (08:00→18:14)
--- NOTE | 2018-12-13 08:25 | PDOC2 ---
CARDIAC CONSULT DATE OF CONSULT Date Of Consult DATE: 12/13/18 TIME: 08:17 REASON FOR CONSULT Reason for Consult Chest pain Hypertension REFERRING PHYSICIAN Referring Physician Dr. Terrazas SOURCE Source: Chart review, Patient HPI History of Present Illness This is a 48 yo female who presented secondary to elevated blood sugars and chest pain. Patient has a history of diabetes; takes Metformin, Glimepiride, and Trulicity. Has been feeling fatigued recently, especially in the afternoon. Thought this was related to her diabetes medications so she quit taking them a few weeks ago. Over the weekend, was out at a cookout and drinking pop/water. Has frequent urination so she knew her blood sugar was elevated. Was to have steroid injection for her knees Monday, but PCP would not administer due to her elevated sugars. Patient resumed diabetes medication Monday and began checking her sugars routinely. Blood sugar was noted in the mid 200 range yesterday. By later afternoon, blood sugar was in the 300's. Began having pain/pressure in her central chest. Associated with heaviness in her left arm. Was difficult taking a deep breath. No associated nausea/vomiting, dizziness, diaphoresis, or palpitations. No recent CRUZ, orthopnea, LE edema, of chest pain with exertion. Does have some mid-epigastric tenderness this morning, but the left chest and arm heaviness has resolved. PAST MEDICAL HISTORY Cardiovascular: HTN, hyperipidemia GI: GERD Psych: Depression Musculoskeletal: Osteoarthritis Endocrine: Diabetes PAST SURGICAL HISTORY Past Surgical History: Appendectomy, Cholecystectomy, Tubal Ligation, Hysterectomy FAMILY HISTORY Family History: Diabetes, Hypertension SOCIAL HISTORY Smoke: No ALCOHOL: occassional Drugs: None Lives: with Family CURRENT MEDICATIONS Current Medications Current Medications Aspirin (Children'S Aspirin) 324 mg 1X ONCE PO Last administered on 12/12/18at 23:08; Start 12/12/18 at 23:30; Stop 12/12/18 at 23:31; Status DC Lactated Ringer's 1,000 ml @ 1,000 mls/hr Q1H IV Last administered on 9at 23:08; Start 12/12/18 at 23:30; Stop 12/13/18 at 00:29; Status DC Famotidine (Pepcid Vial) 20 mg 1X ONCE IVP Last administered on 12/12/18at 23:08; Start 12/12/18 at 23:30; Stop 12/12/18 at 23:31; Status DC Ondansetron HCl (Zofran) 4 mg PRN Q4HRS PRN IV NAUSEA/VOMITING Last administered on 12/13/18 04:28; Start 12/13/18 at 00:45; Stop 12/14/18 at 00:44 Albuterol/ Ipratropium (Duoneb) 3 ml RTQID NEB ; Start 12/13/18 at 08:00; Stop 12/14/18 at 07:59 Famotidine (Pepcid) 20 mg BID PO ; Start 12/13/18 at 09:00 Ceftriaxone Sodium 1 gm/ Sodium Chloride 50 ml @ 100 mls/hr QHS IV Last administered on 12/13/18 01:59; Start 12/13/18 at 01:00 Lactated Ringer's 1,000 ml @ 160 mls/hr Q6H15M IV Last administered on 12/13/18 01:58; Start 12/13/18 at 01:00 Potassium Chloride (Klor-Con) 40 meq DAILY PO Last administered on 12/13/18at 00:57; Start 12/13/18 at 01:00 Morphine Sulfate (Morphine 10mg Syringe) 10 mg QIDPRN PRN SQ MARKED PAIN Last administered on 12/13/18 00:57; Start 12/13/18 at 00:45 Enoxaparin Sodium (Lovenox 150mg Syringe) 140 mg BID SQ Last administered on 12/13/18 01:58; Start 12/13/18 at 01:00 Iohexol (Omnipaque 350 Mg/ml) 100 ml 1X ONCE IV Last administered on 12/13/18 01:26; Start 12/13/18 at 01:15; Stop 12/13/18 at 01:16; Status DC Iohexol (Omnipaque 240 Mg/ml) 30 ml 1X ONCE PO Last administered on 12/13/18 01:26; Start 12/13/18 at 01:15; Stop 12/13/18 at 01:16; Status DC Info (Anti-Coagulation Monitoring By Pharmacy) 1 each PRN DAILY PRN MC SEE COMMENTS; Start 12/13/18 at 01:00; Status Cancel Info (Do NOT chart on this entry -- for MONITORING) 1 each PRN DAILY PRN MC SEE COMMENTS; Start 12/13/18 at 01:00; Stop 12/15/18 at 00:59 Sodium Chloride 50 ml @ As Directed STK-MED ONCE .ROUTE ; Start 12/13/18 at 01:47; Stop 12/13/18 at 01:47; Status DC Ceftriaxone Sodium (Rocephin) 1 gm STK-MED ONCE .ROUTE ; Start 12/13/18 at 01:47; Stop 12/13/18 at 01:48; Status DC Active Scripts Active Reported Tizanidine Hcl (Tizanidine HCl) 6 Mg Capsule 6 Mg PO PRN PRN MDD 18 NOT GIVEN IN THE HOSPITAL NEXT DOSE DUE: DATE: TODAY TIME: IF AND WHEN NEEDED Metformin Hcl 1,000 Mg Tablet 1 Tab PO DAILY HELD IN THE HOSPITAL BECAUSE OF CAT SCAN CONTRAST NEXT DOSE DUE: DATE: TODAY TIME: WITH DINNER Tramadol Hcl (Tramadol HCl) 50 Mg Tablet 50 Mg PO PRN BID PRN LAST DOSE GIVEN: DATE: TODAY TIME: EARLY AFTERNOON NEXT DOSE DUE: DATE: TODAY TIME: EVENING IF NEEDED Glimepiride 2 Mg Tablet 4 Mg PO DAILY LAST DOSE GIVEN: DATE: TODAY TIME: AM NEXT DOSE DUE: DATE: TOMORROW TIME: AM Amlodipine Besylate 5 Mg Tablet 1 Tab PO DAILY LAST DOSE GIVEN: DATE: TODAY TIME: AM NEXT DOSE DUE: DATE: TOMORROW TIME: AM ALLERGIES Allergies: Coded Allergies: No Known Drug Allergies (Unverified , 05/08/18) ROS Review of Systems 14 point ROS conducted with pertinent positives noted above in HPI. PHYSICAL EXAM General: Alert, Oriented X3, Cooperative, No acute distress HEENT: Atraumatic, Mucous membr. moist/pink Lungs: Clear to auscultation, Normal air movement, Other (mid epigastric te nderness ) Heart: Regular rate, Normal S1, Normal S2 Abdomen: Soft, Other (obese ) Extremities: No edema, Normal pulses Skin: No breakdown Neuro: Normal speech, Sensation intact Psych/Mental Status: Mental status NL, Mood NL MUSCULOSKELETAL: No deformity VITALS Vital Signs Vital Signs Date Time Temp Pulse Resp B/P (MAP) Pulse Ox O2 Delivery O2 Flow Rate FiO2 12/13/18 05:15 Room Air 12/13/18 04:36 97.6 65 18 118/74 (89) 95 LABS LABS Laboratory Tests Test 12/12/18 22:20 12/12/18 22:30 12/12/18 22:55 12/13/18 06:39 Urine Collection Type Unknown Urine Color Yellow Urine Clarity Clear Urine pH 5.0 Urine Specific [place] 1.025 Urine Protein Neg (NEG-TRACE) Urine Glucose (UA) Neg mg/dL (NEG) Urine Ketones (Stick) Neg mg/dL (NEG) Urine Blood Neg (NEG) Urine Nitrite Neg (NEG) Urine Bilirubin Neg (NEG) Urine Urobilinogen Dipstick 0.2 mg/dL (0.2 mg/dL) Urine Leukocyte Esterase Small (NEG) Urine RBC 0 /HPF (0-2) Urine WBC 5-10 /HPF (0-4) Urine Squamous Epithelial Cells Many /LPF Urine Bacteria Few /HPF (0-FEW) Urine Opiates Screen Neg (NEG) Urine Methadone Screen Neg (NEG) Urine Barbiturates Neg (NEG) Urine Phencyclidine Screen Neg (NEG) Urine Amphetamine/Methamphetamine Neg (NEG) Urine Benzodiazepines Screen Neg (NEG) Urine Cocaine Screen Neg (NEG) Urine Cannabinoids Screen Neg (NEG) Urine Ethyl Alcohol Neg (NEG) White Blood Count 7.1 x10^3/uL (4.0-11.0) Red Blood Count 4.59 x10^6/uL (3.50-5.40) Hemoglobin 13.4 g/dL (12.0-15.5) Hematocrit 40.3 % (36.0-47.0) Mean Corpuscular Volume 88 fL (79-100) Mean Corpuscular Hemoglobin 29 pg (25-35) Mean Corpuscular Hemoglobin Concent 33 g/dL (31-37) Red Cell Distribution Width 14.9 % (11.5-14.5) Platelet Count 230 x10^3/uL (140-400) Neutrophils (%) (Auto) 65 % (31-73) Lymphocytes (%) (Auto) 25 % (24-48) Monocytes (%) (Auto) 7 % (0-9) Eosinophils (%) (Auto) 2 % (0-3) Basophils (%) (Auto) 1 % (0-3) Neutrophils # (Auto) 4.6 x10^3uL (1.8-7.7) Lymphocytes # (Auto) 1.8 x10^3/uL (1.0-4.8) Monocytes # (Auto) 0.5 x10^3/uL (0.0-1.1) Eosinophils # (Auto) 0.2 x10^3/uL (0.0-0.7) Basophils # (Auto) 0.0 x10^3/uL (0.0-0.2) Prothrombin Time 10.2 SEC (9.4-11.4) Prothromb Time International Ratio 1.0 (0.9-1.1) Activated Partial Thromboplast Time 27 SEC (23-33) D-Dimer (Ya) 1.03 mg/L (0.00-0.50) Sodium Level 140 mmol/L (136-145) Potassium Level 3.2 mmol/L (3.5-5.1) Chloride Level 104 mmol/L (98-107) Carbon Dioxide Level 30 mmol/L (21-32) Anion Gap 6 (6-14) Blood Urea Nitrogen 17 mg/dL (7-20) Creatinine 0.9 mg/dL (0.6-1.0) Estimated GFR (Cockcroft-Gault) 80.5 Glucose Level 162 mg/dL (70-99) Calcium Level 9.0 mg/dL (8.5-10.1) Magnesium Level 1.8 mg/dL (1.8-2.4) Total Bilirubin 0.5 mg/dL (0.2-1.0) Direct Bilirubin 0.1 mg/dL (0.0-0.2) Aspartate Amino Transf (AST/SGOT) 15 U/L (15-37) Alanine Aminotransferase (ALT/SGPT) 29 U/L (14-59) Alkaline Phosphatase 98 U/L (46-116) Creatine Kinase 109 U/L (26-192) Troponin I Quantitative < 0.017 ng/mL (0-0.055) < 0.017 ng/mL (0-0.055) DE-Wsa-L-Type Natriuretic Peptide < 5 pg/mL (0-124) Total Protein 7.0 g/dL (6.4-8.2) Albumin 3.4 g/dL (3.4-5.0) Amylase Level 58 U/L (25-115) Lipase 199 U/L (73-393) Ethyl Alcohol Level < 10 mg/dL (0-10) Bedside Urine HCG, Qualitative hcg negative (Negative) Test 12/13/18 07:52 Glucose (Fingerstick) 186 mg/dL (70-99) ECHOCARDIOGRAM Echocardiogram <Conclusion> The left ventricular systolic function is normal and the ejection fraction is within normal range. EF 65% There is normal LV segmental wall motion. DATE: 11/23/17 1734 STRESS TEST Stress Test Conclusion 1. Regadenoson cardioisotope stress test did not show any evidence of ischemia or infarct. 2. Normal left ventricular systolic function with ejection fraction calculated at 70%. 3. Low risk for cardiac events. DATE: 01/17/18 1224 HEART CATH Heart Cath FINDINGS: 1. Hemodynamics: Normal left ventricular end-diastolic pressure of 11 mmHg. No significant pullback gradient across the aortic valve. 2. Left ventriculography: Normal left ventricular systolic function with ejection fraction estimated at 65%. No mitral regurgitation seen. 3. Coronary angiography: a). The left main coronary artery arose from the left sinus of Valsalva, gave rise to the left anterior descending and left circumflex arteries and showed 20% ostial stenosis. b). The left anterior descending artery did not show any significant stenosis. c). The left circumflex artery did not show any significant stenosis. d). The right coronary artery was large and dominant vessel arising from the right sinus of Valsalva that did not show any significant stenosis. Conclusion 1. No significant coronary artery disease 2. Normal left ventricle systolic function with ejection fraction estimated at 65%. D DATE: 10/31/13 1538 ASSESSMENT/PLAN Assessment/Plan 1. Chest pain, atypical. Trop negative x2- AMI ruled out. Cath 2013 without obstructive disease as noted above. MPI last year without evidence of ischemia or infarct. Follows with Dr. Clark. Missed appointment 2 weeks ago. 2. Hypertension; controlled. 3. Hyperlipidemia 4. Diabetes, II; stopped DM meds two weeks ago; BS has been elevated. As per PCP 5. Elevated d-dimer; CTA negative for PE, LE Doppler negative for DVT. 6. Hypokalemia; replaced 7. Obesity Recommendations Lipids Echo to assess LV systolic function Risk factor modification If echo WNL, may discharge from a CV standpoint. Consider outpatient ischemic eval. F/u in our office with Dr. Clark in 2-3 month. CAROLINE ABREU APRN Dec 13, 2018 08:25
[2018-12-13] MEDS: FAMOTIDINE 20 MG TABLET PO SCH ×2 (08:31→21:12)
[2018-12-13 11:42] VITALS: BP 127/84
[2018-12-13] MEDS: ASPIRIN ENTERIC COATED 81 MG TABLET.DR. PO SCH (13:01)
[2018-12-13 13:12] LABS: THYROID STIM HORMONE (TSH) 2.207 uIU/mL (0.358-3.740)
[2018-12-13] MEDS ORDERED: DULA0.75 SQ (13:35)
[2018-12-13] MEDS ORDERED: TIMO10DR5 EACHEYE (13:35)
[2018-12-13] MEDS ORDERED: GLIM4TAB2 PO (13:35)
[2018-12-13] MEDS ORDERED: CELE200C PO (13:35)
[2018-12-13] MEDS ORDERED: FLUT9.9S NS (13:35)
[2018-12-13] MEDS ORDERED: METF500T16 PO (13:35)
[2018-12-13] MEDS ORDERED: POTASSIUM CHLORIDE 20 MEQ TABLET.ER. PO ONE (15:30)
[2018-12-13] MEDS: amLODIPine BESYLATE 5 MG TABLET PO SCH (16:14)
[2018-12-13] MEDS: GLIMEPIRIDE 2 MG TABLET PO SCH (16:14)
[2018-12-13 16:17] VITALS: BP 134/82
--- NOTE | 2018-12-13 17:05 | CARD ---
MR#: [id number] Date of Study: 12/13/2018 Ordering Physician: CAROLINE ABREU, Referring Physician: CAROLINE ABREU, Tech: Muna Kumar LIYA APPROVED REPORT EXAM: Two-dimensional and M-mode echocardiogram with Doppler and color Doppler. Other Information Quality : Good INDICATION Chest Pain 2D DIMENSIONS RVDd3.0 (2.9-3.5cm)Left Atrium(2D)3.7 (1.6-4.0cm) IVSd1.1 (0.7-1.1cm)Aortic Root(2D)2.8 (2.0-3.7cm) LVDd4.7 (3.9-5.9cm)PWd1.1 (0.7-1.1cm) LVDs2.5 (2.5-4.0cm)FS (%) 30.0 % SV80.8 mlLVEF(%)60.0 (>50%) Aortic Valve AoV Peak Chinmay.126.3cm/sAoV VTI25.0cm AO Peak GR.6.4mmHgAO Mean GR.3mmHg KAMALA (VTI)3.30cm2 Mitral Valve MV E Vmrvhqsj868.8cm/sMV DECEL [id number] MV A Tyzrbjlh60.1cm/sE/A Ratio1.4 Tricuspid Valve TR P. Mtijwxpq597sb/sRAP [id number] TR Peak Gr.69ueXcVEGH79rvHh LEFT VENTRICLE The left ventricle is normal size. There is normal left ventricular wall thickness. The left ventricu lar systolic function is normal and the ejection fraction is within normal range. The Ejection Fracti on is 55-60%. There is normal LV segmental wall motion. The left ventricular diastolic function and f illing is normal for age. RIGHT VENTRICLE The right ventricle is normal size. The right ventricular systolic function is normal. ATRIA The left atrium size is normal. The right atrium size is normal. The interatrial septum is intact wit h no evidence for an atrial septal defect or patent foramen ovale as noted on 2-D or Doppler imaging. AORTIC VALVE The aortic valve is normal in structure and function. Doppler and Color Flow revealed no significant aortic regurgitation. There is no significant aortic valvular stenosis. MITRAL VALVE The mitral valve is normal in structure and function. There is no evidence of mitral valve prolapse. There is no mitral valve stenosis. Doppler and Color-flow revealed trace mitral regurgitation. TRICUSPID VALVE The tricuspid valve is normal in structure and function. Doppler and Color Flow revealed trace tricus pid regurgitation. The PA pressure was estimated at 24 mmHg. There is no tricuspid valve stenosis. PULMONIC VALVE The pulmonary valve is normal in structure and function. Doppler and Color Flow revealed mild pulmoni c valvular regurgitation. There is no pulmonic valvular stenosis. GREAT VESSELS The aortic root is normal in size. The ascending aorta is normal in size. The IVC is normal in size a nd collapses >50% with inspiration. PERICARDIAL EFFUSION There is no evidence of significant pericardial effusion. Critical Notification Critical Value: No <Conclusion> The left ventricle is normal size. The left ventricular systolic function is normal and the ejection fraction is within normal range. The Ejection Fraction is 55-60%. There is no significant aortic valvular stenosis. Doppler and Color Flow revealed no significant aortic regurgitation. Doppler and Color-flow revealed trace mitral regurgitation. Doppler and Color Flow revealed trace tricuspid regurgitation. The PA pressure was estimated at 24 mmHg. Signed by : Deni Grossman MD Electronically Approved : 12/13/2018 17:04:53
[2018-12-13 18:53] VITALS: BP 149/79
[2018-12-13] MEDS: LACTOBACILLUS RHAMNOSUS GG 1 CAPSULE. PO SCH (21:12)
[2018-12-13] MEDS: TIMOLOL 0.5% OPHTH SOLUTION 5ML BOTTLE. OU SCH (21:13)
[2018-12-13] MEDS: traMADol 50 MG TABLET PO PRN (21:13)
--- NOTE | 2018-12-13 21:31 | HP ---
ADMIT DATE: 12/13/2018 HISTORY OF PRESENT ILLNESS: The patient is a 48-year-old -[place] female patient who came to the Emergency Room. She has developed chest pain and her blood sugar was elevated. She is diabetic and has been taking metformin, glimepiride and Trulicity, has been feeling fatigued recently, especially in the afternoon, thought it was related to her diabetes medications. She quit taking them for a few weeks and over the weekend, she was out and started to have frequent urination. She knew that her blood sugar was elevated, was to have a steroid injection for her knees by her primary care physician, but would not administer them due to her elevated blood sugar. She resumed her medication on Monday and began checking her sugars routinely. Her blood sugar was noted to be in the mid 200 range yesterday, but later in afternoon, her blood sugar was up to 300. She began to have pain and pressure in his central chest associated with heaviness in her left arm and difficulty taking a deep breath. No associated nausea, vomiting, dizziness, diaphoresis, palpitations. No shortness of breath on exertion or orthopnea. No lower extremity edema. No chest pain with exertion, so she was evaluated extensively in the Emergency Room and has had an EKG and her first set of cardiac enzyme was less than 0.017 and she was admitted to do 2 more sets of cardiac enzymes, check her fasting lipid profile, consult the technician assistant. PAST MEDICAL HISTORY: Significant for type 2 diabetes, diabetic neuropathy, hypertension, generalized osteoarthritis, hyperlipidemia, glaucoma, nephrolithiasis, fatty liver, and thyroid nodules. PAST SURGICAL HISTORY: Significant for tubal ligation, right oophorectomy, total abdominal hysterectomy, appendectomy, cholecystectomy, and colonoscopy. ALLERGIES: She has no known drug allergies. MEDICATIONS: She is currently on following medications: She is on amlodipine 5 mg once a day, Celebrex 200 mg twice a day, tramadol 50 mg twice a day, Flonase 2 sprays to each nostril twice a day, timolol maleate for Timoptic 1 drop to both eyes twice a day, metformin 500 mg twice a day, Trulicity 0.75 mg subcutaneously weekly, glimepiride 4 mg once a day. FAMILY HISTORY: She has no full brothers or sisters. She has a father who is still alive in his late 60s and mother in early 60s. SOCIAL HISTORY: She is , has 4 daughters and 4 sons. She does not smoke, drinks alcohol occasionally. Does not use any drugs. 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 REVIEW OF SYSTEMS: The patient denied any blurring of vision, cataract, glaucoma or macular degeneration. Denied any earache, tinnitus or sensorineural deafness. Denied any nosebleeds, stuffy nose or postnasal drip. Denied any sore throat, sore tongue, toothache, hoarseness of voice or difficulty swallowing. Denied any nausea, vomiting, diarrhea or constipation. Denied any hematemesis, melena or hematochezia. Denied any dysuria, frequency or hematuria. Did complain of polyuria as her blood sugar was suboptimally controlled. Did complain of chest pressure, but denied any orthopnea or paroxysmal nocturnal dyspnea. Denied any dyspnea on exertion. Denied any cough, phlegm or hemoptysis. Denied any dizziness, lightheadedness, or vertigo. PHYSICAL EXAMINATION: GENERAL: On arrival to the Emergency Room, she looked well and was clearly in no apparent respiratory distress. No pallor, jaundice, cyanosis or thyromegaly. No jugular venous distention. No lower limb edema. VITAL SIGNS: Her heart rate was 68, blood pressure was 119/59, temperature was 98.5, respiratory rate 20, and oxygen saturation was 97%. HEENT: Normocephalic, atraumatic. NECK: Supple. HEART: Showed normal first and second heart sounds. No gallop, rub or murmur. CHEST: Clear to auscultation. No crepitation or rhonchi. ABDOMEN: Distended, soft, nontender. NEUROLOGICALLY: She was awake, alert, responding appropriately. All cranial nerves intact. EXTREMITIES: He moves extremities without difficulty. LABORATORY DATA: Her lab work showed that her white cell count was 7100, hemoglobin 13.4, hematocrit 40, MCV 88 and platelet count 230,000. Her prothrombin time was 10.2, INR of 1, aPTT was 27 and D-dimer was 1.03. Her serum sodium was 140, potassium 3.2, chloride 104, bicarbonate 30, anion gap of 6, BUN 17, creatinine 0.9, estimated GFR was 80 mL per minute. Her glucose 162, calcium was 9, magnesium was 1.8. Total bilirubin, AST, ALT, alkaline phosphatase were normal. CK was 109. Beta natriuretic peptide was less than 5. Total protein was 7, albumin was 3.4. Her amylase and lipase were normal. Her first set of troponin was less than 0.017. Her TSH was 2.207. Her urinalysis was essentially unremarkable. Her urine test was negative and toxic screen was essentially negative. Her chest x-ray showed no acute cardiopulmonary process. Nonobstructive bowel gas pattern. Did have a CT scan of the chest, abdomen and pelvis, showed no evidence of central lobar or segmental pulmonary emboli, clear lungs, no acute abnormality of the abdomen and pelvis. There is diverticulosis with no evidence of acute diverticulitis, status post cholecystectomy, hysterectomy and appendectomy, indeterminate nodular density in the left pelvis could be associated with the left ovary and this is stable from previous exams. Venous Doppler ultrasound of both lower extremities showed no evidence of lower extremity deep vein thrombosis. ASSESSMENT AND PLAN: The patient will do 2 more sets of cardiac enzyme, consult the cardiology and check her fasting lipid profile and decide on further management accordingly. EBONI RAMÍREZ MD DR: MIGUEL A/thomas JOB#: [id number] / [id number]
[2018-12-14 00:10] VITALS: BP 118/78
[2018-12-14] MEDS: IV RINGERS SOLUTION,LACTATED 1,000 ML IV SCH (04:21)
[2018-12-14] MEDS: IPRATRPIUM/ALBUTEROL 0.5/2.5MG 3 ML NEBU. NEB SCH (05:11)
[2018-12-14 05:16] VITALS: BP 126/84
[2018-12-14 06:27] LABS: BASO # 0.1 x10^3/uL (0.0-0.2); BASO % 1 % (0-3); EOS # 0.2 x10^3/uL (0.0-0.7); EOS % 4 % (0-3); HEMATOCRIT 39.3 % (36.0-47.0); HEMOGLOBIN 13.2 g/dL (12.0-15.5); LYMPH # 1.4 x10^3/uL (1.0-4.8); LYMPH % 24 % (24-48); MEAN CORPUSCULAR HEMOGLOBIN 30 pg (25-35); MEAN CORPUSCULAR HGB CONC 34 g/dL (31-37); MEAN CORPUSCULAR VOLUME 89 fL (79-100); MONO # 0.5 x10^3/uL (0.0-1.1); MONO % 8 % (0-9); NEUT # 3.9 x10^3uL (1.8-7.7); NEUT % 64 % (31-73); PLATELET COUNT 206 x10^3/uL (140-400); RED BLOOD COUNT 4.44 x10^6/uL (3.50-5.40); RED CELL DISTRIBUTION WIDTH 14.9 % (11.5-14.5); WHITE BLOOD COUNT 6.1 x10^3/uL (4.0-11.0)
[2018-12-14 06:39] LABS: CALCIUM 8.6 mg/dL (8.5-10.1); CREATININE 0.7 mg/dL (0.6-1.0); GFR 107.6; POTASSIUM 3.5 mmol/L (3.5-5.1)
[2018-12-14] MEDS: TIMOLOL 0.5% OPHTH SOLUTION 5ML BOTTLE. OU SCH (08:25)
[2018-12-14] MEDS: FAMOTIDINE 20 MG TABLET PO SCH (08:26)
[2018-12-14] MEDS: LACTOBACILLUS RHAMNOSUS GG 1 CAPSULE. PO SCH (08:26)
[2018-12-14] MEDS: amLODIPine BESYLATE 5 MG TABLET PO SCH (08:26)
[2018-12-14] MEDS: POTASSIUM CHLORIDE 20 MEQ TABLET.ER. PO SCH (08:26)
[2018-12-14] MEDS: GLIMEPIRIDE 2 MG TABLET PO SCH (08:27)
[2018-12-14] MEDS: traMADol 50 MG TABLET PO PRN (08:27)
[2018-12-14] MEDS: ASPIRIN ENTERIC COATED 81 MG TABLET.DR. PO SCH (08:27)
[2018-12-14] MEDS: ENOXAPARIN ** NOTE DOSE ** SYRINGE SQ SCH (08:28)
[2018-12-14] MEDS ORDERED: FLUTICASONE 50MCG/NASAL SPRAY 16GM BOTTLE. NS SCH (09:00)
[2018-12-14 11:00] VITALS: BP 119/85
[2018-12-15] MEDS ORDERED: metFORMIN 500 MG TABLET PO SCH (08:00)
--- NOTE | 2018-12-17 09:25 | DS ---
DATE OF DISCHARGE: 12/14/2018 HISTORY OF PRESENT ILLNESS: The patient is a 48-year-old -[place] female patient, who came to the Emergency Room with a complaint of chest pain. She was extensively investigated. She had 3 sets of cardiac enzymes that were negative. Has had an echocardiogram, which showed that her left ventricular size is normal, left ventricular systolic function is normal, ejection fraction 55-60%, no significant aortic valvular stenosis, no aortic regurgitation, trace mitral regurgitation, trace tricuspid. Her pulmonary artery pressure was estimated at 24 mmHg. She had had a CT scan of the chest, abdomen, and pelvis, which showed no evidence of pulmonary emboli. She does have no evidence of diverticulitis. She has small apparently supraumbilical hernia that is fat containing and nonobstructed. Her uterus is surgically absent. No free fluid or lymphadenopathy. There is nodular focus along the left internal iliac chain that may be associated with left ovary measuring up to 2.5 cm, unchanged from prior exam. No free fluid or lymphadenopathy. She ruled out myocardial infarction. The Cardiology Team recommended that she should be followed. She did have an appointment with their Cardiology office to continue to do a stress test. Because of pain in her abdomen around the umbilical area, I recommended that she should make an appointment for her to be seen by Dr. Guerra and was discharged home to follow with her primary care physician, Dr. Tapia. PHYSICAL EXAMINATION: GENERAL: When I examined her this morning, she looked well and was clearly in no apparent respiratory distress. No pallor, jaundice, cyanosis, or thyromegaly. No jugular venous distention. No limb edema. VITAL SIGNS: Her heart rate was 72, blood pressure was 126/84, temperature was 97.7, respiratory rate was 18, and oxygen saturation was 94% on room air. The rest of clinical examination is stable. Her intake was 2316, no output was recorded. LABORATORY DATA: Her lab work this morning showed serum sodium 142, potassium 3.5, chloride 104, bicarbonate 32, anion gap of 6, BUN 5, creatinine 0.7, estimated GFR was 170 mL per minute. Her glucose 116 and calcium was 8.6. Her white cell count was 6100, hemoglobin 13, hematocrit 39, MCV 89, and platelet count 206,000. Her prothrombin time was 10.2, INR of 1, aPTT was 27. D-dimer was elevated at 1.03. Urinalysis was unremarkable. Urine test was negative. Toxic screen was essentially negative. She did have a CT scan of the chest, abdomen and pelvis, which basically showed no evidence of central lobar or segmental pulmonary emboli. The lungs are clear. No acute abnormality with abdomen and pelvis. Given D-dimer, she had venous Doppler ultrasound of both lower extremities, which showed no evidence of lower extremity deep vein thrombosis. DISCHARGE MEDICATIONS: The patient was discharged home to continue on amlodipine 5 mg once a day, Celebrex 200 mg twice a day, Trulicity 0.75 mg subcutaneous weekly, Flonase 2 sprays to each nostril twice a day, glimepiride 4 mg once a day, metformin 500 mg twice a day, timolol maleate for Timoptic 1 drop to both eyes twice a day, and tramadol 50 mg twice a day as needed. FINAL DISCHARGE DIAGNOSES: Chest pain, atypical, myocardial infarction ruled out. Other medical problems include type 2 diabetes that seems to be extremely well controlled, diabetic peripheral neuropathy, hypertension, generalized osteoarthritis, hyperlipidemia, glaucoma, nonalcoholic steatohepatitis, and nephrolithiasis. EBONI RAMÍREZ MD DR: MIGUEL A/thomas JOB#: [id number] / [id number]
[2018-12-20] MEDS ORDERED: NON FORMULARY ITEM (Dulaglutide (Trulicity) 0.75 MG) SQ SCH (09:00)
== END 2018-12-14 14:30 | disposition home or self-care (01) | DRG 392 ==
LOC: ER 22:18 → 1 SOUTH 12-13 00:30
PROVIDERS: ADMIT Internal Medicine; ATTEND Internal Medicine
DX: K21.9 Gastro-esophageal reflux disease without esophagitis (principal); N39.0 Urinary tract infection, site not specified; Z68.43 Body mass index [BMI] 50.0-59.9, adult; R07.89 Other chest pain; I10 Essential (primary) hypertension; E87.6 Hypokalemia; E66.9 Obesity, unspecified; K75.81 Nonalcoholic steatohepatitis (NASH); E78.00 Pure hypercholesterolemia, unspecified; N20.0 Calculus of kidney; E11.40 Type 2 diabetes mellitus with diabetic neuropathy, unspecified; E78.5 Hyperlipidemia, unspecified; H40.9 Unspecified glaucoma; K76.0 Fatty (change of) liver, not elsewhere classified; M15.9 Polyosteoarthritis, unspecified; F32.9 Major depressive disorder, single episode, unspecified; Z87.442 Personal history of urinary calculi; Z90.721 Acquired absence of ovaries, unilateral; Z79.84 Long term (current) use of oral hypoglycemic drugs; Z83.3 Family history of diabetes mellitus; Z82.49 Family history of ischemic heart disease and other diseases of the circulatory system; Z90.710 Acquired absence of both cervix and uterus; Z90.49 Acquired absence of other specified parts of digestive tract
CPT/HCPCS: 36415; 71046; 71275; 74019; 74177; 80048; 80061; 80076; 80307; 81001; 81025; 82150; 82550; 82947; 83690; 83735; 83880; 84443; 84484; 85025; 85379; 85610; 85730; 87086; 93005; 93306; 93970; 94640; 96361; 96374; G0238; G0480; J0696; J1650; J2270; J2405; J3490; J7120; J7620; Q9966; Q9967; 99285-25

== ENCOUNTER → 2019-08-16 | Outpatient (CLI) | payer OTHER ==
[~2019-08-16] MED LIST changes: +CELE200C PO; -CETI10TA22 PO; +CETI10TA24 PO; +DULA0.75 SQ; +FLUT9.9S NS; -GLIM2TAB2 PO; +GLIM2TAB7 PO; +GLIM4TAB8 PO; +LISI1TAB20 PO; -LISI1TAB7 PO; +METF500T16 PO; -OMEP20CA10 PO; +OMEP20CA16 PO; +TIMO10DR5 EACHEYE
--- NOTE | 2019-08-16 13:09 | RAD ---
Examination: US PELVIS W/TV History: Left pelvic pain. Ovarian cyst. Comparison/Correlation: 10/01/2018 CT abdomen and pelvis with oral and IV contrast Findings: Transabdominal and transvaginal pelvic ultrasound exams were performed. Transvaginal technique was utilized better assessment of the adnexal structures. Hysterectomy is noted. The right ovary is not identified and this corresponds with the reported surgical history. Left ovary measures 3.2 cm x 3.2 cm x 2.3 cm and has normal echotexture. Small follicle involving the left ovary measuring 0.8 cm x 0.7 cm x 0.6 cm is result in appearance without flow. Normal ovarian flow on Doppler imaging is present. No pelvic free fluid. Impression: No suspicious process. Electronically signed by: Carlos Pastor MD (08/16/2019 1:06 PM) [id number]
== END | disposition home or self-care (01) ==
LOC: PMG 11:52
PROVIDERS: ATTEND Family Medicine
DX: N83.02 Follicular cyst of left ovary (principal); Z90.710 Acquired absence of both cervix and uterus
CPT/HCPCS: 76830; 76856

== ENCOUNTER 2019-12-07 17:15 | Emergency (ER) | payer OTHER ==
[~2019-12-07] VITALS: Ht 170.2 cm; Wt 136.8 kg
[2019-12-07] MEDS ORDERED: NITROGLYCERIN SUBLINGUAL 0.4 MG BOTTLE OF 25. SL PRN (17:30)
--- NOTE | 2019-12-07 17:33 | PHYS DOC ---
Past History Past Medical History: Diabetes, GERD, High Cholesterol, Hypertension, Pancreatitis, UTI (SHANTAL LAL DO) Past Surgical History: Appendectomy, Cholecystectomy, Hysterectomy (SHANTAL LAL DO) Alcohol Use: None Drug Use: None (SHANTAL LAL DO) General Adult EDM: Chief Complaint: CHEST PAIN HPI: HPI: The history was obtained from the patient. Patient is a 49-year-old female with PMH diabetes, hypertension, hyperlipidemia, obesity who presents with a chief complaint of chest pain. Patient states 1 hour prior to arrival while at rest she began developing constant left anterior chest wall sharp chest pain that radiates through to her left scapula. She also notes that it radiates down her left arm and involves some numbness and tingling. She knows she has a history of chest pain approximately year ago. She thinks she had a stress test performed that was normal. She denies any cough or fever. She does note some mild shortness of breath associated with this. She denies any diaphoresis. She denies any syncope. She denies any exertional chest pain at baseline. She denies any food that may have triggered her symptoms. She denies any increase i n exertional activity or exercise that may account for her symptoms. She did not try any medicine prior to arrival. She is unsure of her family cardiac history. Denies taking any estrogen supplements. States the pain is been constant without alleviating or exacerbating factors. Patient denies any history of immobilization greater than 48 hours, recent hospitalizations, recent surgery, recent trauma, , oral contraceptive usage, hormone replacement therapy, air travel greater than 8 hours, recent infectious disease, or general deterioration of their overall condition. (SHANTAL LAL DO) Review of Systems: Review of Systems: Constitutional: Denies fever or chills Eyes: Denies change in visual acuity HENT: Denies nasal congestion or sore throat Respiratory: Positive for shortness of breath Cardiovascular: Positive for chest pain GI: Denies abdominal pain, nausea, vomiting, bloody stools or diarrhea : Denies dysuria Musculoskeletal: Denies back pain or joint pain Integument: Denies rash Neurologic: Denies headache, focal weakness or sensory changes Endocrine: Denies polyuria or polydipsia Lymphatic: Denies swollen glands Psychiatric: Denies depression or anxiety (SHANTAL LAL DO) Heart Score: HEART Score for Chest Pain: HEART Score for Chest Pain Response (Comments) Value History Slighlty/Non-Suspicious 0 ECG Nonspecific Repolarizatio 1 Age >45 - < 65 1 Risk Factors >3 Risk Factors or Hx CAD 2 Troponin < Normal Limit 0 Total 4 Risk Factors: Risk Factors: DM, Current or recent (<one month) smoker, HTN, HLP, family history of CAD, obesity. Risk Scores: Score 0 - 3: 2.5% MACE over next 6 weeks - Discharge Home Score 4 - 6: 20.3% MACE over next 6 weeks - Admit for Clinical Observation Score 7 - 10: 72.7% MACE over next 6 weeks - Early Invasive Strategies (SHANTAL LAL DO) Allergies: Allergies: Allergies Coded Allergies Type Severity Reaction Last Updated Verified No Known Drug Allergies 05/08/18 No (SHANTAL LAL DO) Physical Exam: PE: Constitutional: Well developed, well nourished, no acute distress, non-toxic appearance. [] HENT: Normocephalic, atraumatic, bilateral external ears normal, oropharynx moist, no oral exudates, nose normal. [] Eyes: PERRLA, EOMI, conjunctiva normal, no discharge. [] Neck: Normal range of motion, no tenderness, supple, no stridor. [] Cardiovascular:Heart rate regular rhythm, no murmur [] Lungs & Thorax: Bilateral breath sounds clear to auscultation [] Abdomen: soft, no tenderness, no masses, no pulsatile masses. [] Skin: Warm, dry, no erythema, no rash. [] Back: No tenderness, no CVA tenderness. [] Extremities: No tenderness, no cyanosis, no clubbing, ROM intact, no edema. [] Neurologic: Alert and oriented X 3, normal motor function, normal sensory function, no focal deficits noted. [] Psychologic: Affect normal, judgement normal, mood normal. [] (SHANTAL LAL DO) Current Patient Data: Labs: Laboratory Tests Test 12/07/19 17:25 12/07/19 17:48 White Blood Count 8.3 x10^3/uL Red Blood Count 5.13 x10^6/uL Hemoglobin 14.9 g/dL Hematocrit 44.5 % Mean Corpuscular Volume 87 fL Mean Corpuscular Hemoglobin 29 pg Mean Corpuscular Hemoglobin Concent 34 g/dL Red Cell Distribution Width 14.0 % Platelet Count 237 x10^3/uL Neutrophils (%) (Auto) 75 % Lymphocytes (%) (Auto) 18 % Monocytes (%) (Auto) 6 % Eosinophils (%) (Auto) 1 % Basophils (%) (Auto) 0 % Neutrophils # (Auto) 6.2 x10^3uL Lymphocytes # (Auto) 1.5 x10^3/uL Monocytes # (Auto) 0.5 x10^3/uL Eosinophils # (Auto) 0.1 x10^3/uL Basophils # (Auto) 0.0 x10^3/uL Maternal Serum HCG Beta Subunit 3 mIU/mL Sodium Level 141 mmol/L Potassium Level 3.5 mmol/L Chloride Level 101 mmol/L Carbon Dioxide Level 31 mmol/L Anion Gap 9 Blood Urea Nitrogen 15 mg/dL Creatinine 1.1 mg/dL Estimated GFR (Cockcroft-Gault) 63.6 BUN/Creatinine Ratio 14 Glucose Level 186 mg/dL Calcium Level 9.5 mg/dL Total Bilirubin 0.4 mg/dL Aspartate Amino Transf (AST/SGOT) 36 U/L Alanine Aminotransferase (ALT/SGPT) 43 U/L Alkaline Phosphatase 112 U/L Troponin I Quantitative < 0.017 ng/mL Total Protein 8.0 g/dL Albumin 3.6 g/dL Albumin/Globulin Ratio 0.8 Lipase 222 U/L Urine Test Negative Current Medications Medications (Trade) Dose Ordered Sig/Lolis Route PRN Reason Start Time Stop Time Status Last Admin Dose Admin Nitroglycerin (Nitrostat) 0.4 mg PRN Q5MIN PRN SL CHEST PAIN 12/07/19 17:30 12/07/19 17:40 Aspirin (Aspirin Chewable) 324 mg 1X ONCE PO 12/07/19 17:35 12/07/19 17:36 DC 12/07/19 17:39 Vital Signs: Vital Signs Date Time Temp Pulse Resp B/P (MAP) Pulse Ox O2 Delivery O2 Flow Rate FiO2 12/07/19 18:02 68 20 122/72 (89) 98 Room Air 12/07/19 17:40 83 135/80 12/07/19 17:20 98.9 81 20 135/80 (98) 98 Room Air (SHANTAL LAL DO) EKG: EKG: EKG consistent with normal sinus rhythm. Ventricular rate is 75 bpm. Galva normal. Flipped T waves noted in leads III, aVF, V4, V5. No acute ST segment elevation appreciated. Similar to EKG from December 12, 2018. [] (SHANTAL LAL DO) Radiology/Procedures: Radiology/Procedures: [] (SHANTAL LAL DO) Course & Med Decision Making: Course & Med Decision Making Pertinent Labs and Imaging studies reviewed. (See chart for details) Patient is a 49-year-old female presents with chief complaint of left anterior chest wall discomfort that began 1 hour prior to arrival. She denies any exertional component to her symptoms. Denies any PE risk factors. Basic labs were obtained. At this time they have been reassuring. EKG shows no acute ischemic changes. Is consistent with her EKG from 1 year ago. Chest x-ray nonacute. Per chart review patient did have extensive work-up 1 year ago. Including echocardiogram multiple troponins, and CT imaging. They were all negative. At this time the patient's current troponin is pending. I did speak with her [employer] consultant Dr. Clark directly. I do feel the patient would benefit from further cardiology follow-up however I do not feel she requires hospitalization and invasive testing at this time as her symptoms are not exertional in nature. Patient is agreeable to this plan. Patient has been signed out to Dr. Sheldon. We did discuss labs, imaging, and EKG results. We did discuss plan of care. Please see their note for further updates and final disposition. (SHANTAL LAL DO) Course & Med Decision Making Patient reevaluated by myself and complains of left-sided chest pressure since around 3:30 PM, no associated symptoms. Patient reports he feels as if she has a tight muscle, is relieved when she massages it. Request prescription for muscle relaxer. States she had a cardiac cath 2 years ago that showed very a small blockage and a negative stress 1 year ago. Pt is no a cocaine user. No known family history of ACS or CAD, connective tissue disorder, sudden under 50, aortic disease or clotting disorders. Life-threatening processes of chest pain were considered but are low suspicion given patient's history, physical exam and ed workup. Patient has 2 negative troponins and EKG with no new changes. Chest x-ray with no acute cardiopulmonary process. Dr. Lara had spoke with Dr. Clark ([employer] consultant) who agrees with plan for outpatient follow-up. Admission was offered but patient states she feels well and is requesting to go home. Strict ED return precautions were given to patient. All of her questions were answered and she was stable at time of discharge. Differential includes acute myocardial infarction, aortic dissection, congestive heart failure, esophageal injury including rupture, surgical abdomen, arrhythmia, cardiomyopathy, myocarditis, pericarditis, peptic ulcer disease, pneumomediastinum, pneumonia, pneumothorax, pulmonary embolus, unstable angina, rib fracture, pericardial tamponade or effusion, pulmonary contusion I spoken with the patient and her caregivers. I explained the patient's condition, diagnoses and treatment plan based on the information available to me at this time. I have answered the patient and her caregiver's questions and addressed any concerns. The patient and her caregivers have a good understanding of patient's diagnosis, condition and treatment plan as can be expected at this point. Vital signs have been stable. Patient's condition is stable and appropriate for discharge from the emergency department. Patient will pursue further outpatient evaluation with primary care physician or other designated or consulting physician as outlined in the discharge instructions. The patient and/or caregivers are agreeable to this plan of care and follow-up instructions have been explained in detail. The patient and/or caregivers have received these instructions in written form and have expressed an understanding of the discharge instructions. The patient and/or caregivers are aware that any significant change of condition or worsening of symptoms should prompt immediate return to this or the closest emergency department or call to 911. (DARRION SHELDON DO) Dragon Disclaimer: Dragvidhya Disclaimer: This electronic medical record was generated, in whole or in part, using a voice recognition dictation system. (SHANTAL LAL DO) Departure Departure: Impression: Primary Impression: Chest pain Disposition: 01 HOME/RESIDENCE PRIOR TO ADM Condition: STABLE Referrals: KATERINA MUIR MD (PCP) BRYN CLARK MD Patient Instructions: Chest Pain (Nonspecific), Chest Wall Pain Scripts Cyclobenzaprine Hcl (CYCLOBENZAPRINE HCL) 10 Mg Tablet 1 TAB PO TID for pain, #30 TAB Prov: DARRION SHELDON DO 12/07/19 Justification of Admission: Justification of Admission: Justification of Admission Dx: N/A (SHANTAL LAL DO) Justification of Admission Dx: N/A (DARRION SHELDON DO) SHANTAL LAL DO Dec 07, 2019 17:33 DARRION SHELDON DO Dec 07, 2019 20:52
[2019-12-07] MEDS ORDERED: ASPIRIN CHEWABLE 81 MG TABLET. PO ONE (17:35)
--- NOTE | 2019-12-07 17:45 | RAD ---
Exam: Chest one view INDICATION: Chest pain TECHNIQUE: Frontal view of the pelvis Comparisons: None FINDINGS: The cardiomediastinal silhouette and pulmonary vessels are within normal limits. The lung and pleural spaces are clear. IMPRESSION: No acute cardiopulmonary process. Electronically signed by: Elmer Patten MD (12/07/2019 5:42 PM) [id number]
[2019-12-07 17:47] LABS: BASO % 0 % (0-3); EOS # 0.1 x10^3/uL (0.0-0.7); EOS % 1 % (0-3); HEMATOCRIT 44.5 % (36.0-47.0); HEMOGLOBIN 14.9 g/dL (12.0-15.5); LYMPH # 1.5 x10^3/uL (1.0-4.8); LYMPH % 18 % (24-48); MEAN CORPUSCULAR HEMOGLOBIN 29 pg (25-35); MEAN CORPUSCULAR HGB CONC 34 g/dL (31-37); MEAN CORPUSCULAR VOLUME 87 fL (79-100); MONO # 0.5 x10^3/uL (0.0-1.1); MONO % 6 % (0-9); NEUT # 6.2 x10^3uL (1.8-7.7); NEUT % 75 % (31-73); PLATELET COUNT 237 x10^3/uL (140-400); RED BLOOD COUNT 5.13 x10^6/uL (3.50-5.40); WHITE BLOOD COUNT 8.3 x10^3/uL (4.0-11.0)
[2019-12-07 17:51] LABS: CALCIUM 9.5 mg/dL (8.5-10.1); CREATININE 1.1 mg/dL (0.6-1.0); GFR 63.6; POTASSIUM 3.5 mmol/L (3.5-5.1)
[2019-12-07 17:57] LABS: ALBUMIN 3.6 g/dL (3.4-5.0); ALBUMIN/GLOBULIN RATIO 0.8 (1.0-1.7); TOTAL BILIRUBIN 0.4 mg/dL (0.2-1.0)
[2019-12-07 18:03] LABS: U PREG PATIENT NEGATIVE (NEG)
[2019-12-07] MEDS ORDERED: KETOROLAC 15 MG/ML VIAL. IVP ONE (18:45)
[2019-12-07 20:29] VITALS: BP 131/76
[2019-12-07] MEDS ORDERED: CYCL-331 PO (20:52)
--- NOTE | 2019-12-07 20:56 | EKG ---
[address] [address] Test Date: 2019-12-07 Test Time: 17:26:03 Pat Name: KARO STEWART Department: Room: Gender: F Shear Tender: FLORENTINO : 1970 Requested By: SHANTAL LAL Order Number: [id number] Reading MD: Measurements Intervals [place] Rate: 75 P: 33 WA: 160 QRS: 38 QRSD: 80 T: 0 QT: 338 QTc: 380 Interpretive Statements SINUS RHYTHM NORMAL ECG RI6.02 No previous ECG available for comparison
== END 2019-12-07 20:57 | disposition home or self-care (01) ==
LOC: ER 17:15
DX: R07.89 Other chest pain (principal); E11.9 Type 2 diabetes mellitus without complications; K21.9 Gastro-esophageal reflux disease without esophagitis; E78.00 Pure hypercholesterolemia, unspecified; I10 Essential (primary) hypertension; Z87.442 Personal history of urinary calculi
CPT/HCPCS: 36415; 71045; 80053; 81025; 83690; 84484; 84702; 85025; 93005; 96374; 99285; J1885

== ENCOUNTER 2020-03-01 18:04 | Emergency (ER) | payer OTHER ==
[~2020-03-01] VITALS: Ht 177.8 cm; Wt 135.2 kg
[~2020-03-01 18:04] MED LIST changes: +AMLO-186 PO; -AMLO5TAB10 PO; -CETI10TA24 PO; +CETI10TA74 PO; +CYCL-331 PO
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
--- NOTE | 2020-03-01 18:51 | RAD ---
EXAM: Left foot, 3 views. HISTORY: Fracture. COMPARISON: None. FINDINGS: 3 views of the left foot are obtained. There is no fracture, dislocation or subluxation. There is a small plantar spur. There is enthesopathy at Achilles tendon insertion. There is no radiodense foreign body. IMPRESSION: No acute osseous finding. Electronically signed by: Mary Keller MD (03/01/2020 6:47 PM) [facility]
[2020-03-01 19:13] VITALS: BP 148/92
[2020-03-01] MEDS ORDERED: HYDROcodon/IBUPROFEN 7.5/200MG 1 TAB TABLET PO ONE (19:15)
== END 2020-03-01 19:14 | disposition home or self-care (01) ==
LOC: ER 18:04
DX: S90.32XA Contusion of left foot, initial encounter (principal); E11.42 Type 2 diabetes mellitus with diabetic polyneuropathy; K21.9 Gastro-esophageal reflux disease without esophagitis; E78.00 Pure hypercholesterolemia, unspecified; I10 Essential (primary) hypertension; K58.9 Irritable bowel syndrome, unspecified; Z87.440 Personal history of urinary (tract) infections; W23.0XXA Caught, crushed, jammed, or pinched between moving objects, initial encounter; Y93.89 Activity, other specified; Y92.89 Other specified places as the place of occurrence of the external cause; Y99.8 Other external cause status
CPT/HCPCS: 73630; 99283

== ENCOUNTER 2020-03-20 16:37 | Emergency (ER) | payer OTHER ==
[~2020-03-20] VITALS: Ht 170.2 cm; Wt 139.1 kg
[2020-03-20] MEDS ORDERED: diphenhydrAMINE 50 MG/ML VIAL IV ONE (17:00)
[2020-03-20] MEDS ORDERED: IV NORMAL SALINE 1,000ML 1,000 ML IV ONE (17:00)
[2020-03-20] MEDS ORDERED: METOCLOPRAMIDE HCL 10 MG/2 ML VIAL. IVP ONE (17:00)
--- NOTE | 2020-03-20 17:00 | PHYS DOC ---
Past History Past Medical History: Arthritis, Diabetes, High Cholesterol, Hypertension, Other Additional Past Medical Histor: Chroinic Pain (SHANTAL LAL DO) Past Surgical History: Appendectomy, Cholecystectomy, Hysterectomy, Oophorectomy, Tonsillectomy, Tubal ligation, Other Additional Past Surgical Histo: D&C (SHANTAL LAL DO) Alcohol Use: Occasionally Drug Use: None (SHANTAL LAL DO) General Adult EDM: Chief Complaint: MULTIPLE COMPLAINTS HPI: HPI: History obtained from patient. Patient is a 49-year-old female past medical history significant for morbid obesity, hypertension, hyperlipidemia, diabetes who presents with multiple complaints. Patient states that she developed a gradual onset headache approximately 9 hours prior to arrival. States that headache completely resolved. States 2 hours ago shortly following intercourse she developed a bilateral temporal headache. States the pain is throbbing in nature. States it is nonradiating. Denies any neck pain. Does note some nause a without vomiting. Denies acute vision or hearing changes. Denies photophobia or phonophobia. Denies syncope. She also reports some hot and cold chills. She notes an intermittent chest tightness throughout the day as well. Denies history of coronary artery disease. Denies any exertional component to her chest pain. (SHANTAL LAL DO) Review of Systems: Review of Systems: Constitutional: Denies fever or chills Eyes: Denies change in visual acuity HENT: Denies nasal congestion or sore throat Respiratory: Denies cough or shortness of breath Cardiovascular: Denies chest pain or edema GI: Denies abdominal pain, nausea, vomiting, bloody stools or diarrhea : Denies dysuria Musculoskeletal: Denies back pain or joint pain Integument: Denies rash Neurologic: Denies headache, focal weakness or sensory changes Endocrine: Denies polyuria or polydipsia Lymphatic: Denies swollen glands Psychiatric: Denies depression or anxiety (SHANTAL LAL DO) Current Medications: Current Meds: Current Medications Medications (Trade) Dose Ordered Sig/Lolis Start Time Stop Time Status Last Admin Dose Admin Diphenhydramine HCl (Benadryl) 50 mg 1X ONCE 03/20/20 17:00 03/20/20 17:01 UNV Metoclopramide HCl (Reglan Vial) 10 mg 1X ONCE 03/20/20 17:00 03/20/20 17:01 UNV Sodium Chloride 1,000 ml @ 1,000 mls/hr 1X ONCE 03/20/20 17:00 03/20/20 17:59 UNV (SHANTAL LAL DO) Allergies: Allergies: Allergies Coded Allergies Type Severity Reaction Last Updated Verified No Known Drug Allergies 05/08/18 No (SHANTAL LAL DO) Physical Exam: PE: Constitutional: Well developed, well nourished, no acute distress, non-toxic appearance. [] HENT: Normocephalic, atraumatic, bilateral external ears normal, oropharynx moist, no oral exudates, nose normal. [] Eyes: PERRLA, EOMI, conjunctiva normal, no discharge. [] Neck: Normal range of motion, no tenderness, supple, no stridor. [] Cardiovascular:Heart rate regular rhythm, no murmur [] Lungs & Thorax: Bilateral breath sounds clear to auscultation [] Abdomen: soft, no tenderness, no masses, no pulsatile masses. [] Skin: Warm, dry, no erythema, no rash. [] Back: No tenderness, no CVA tenderness. [] Extremities: No tenderness, no cyanosis, no clubbing, ROM intact, no edema. [] Neurologic: Alert with intact cognitive function. No aphasia, dysarthria, or neglect. GCS 15. Pupils 3 mm briskly reactive b/l. No APD present. Cranial nerves 2-12 grossly intact; no facial asymmetry present, tongue midline, shoulder shrugging strength intact. Strength 5/5 and symmetric throughout. Light touch sensation intact throughout. Cerebellar testing appropriate without evid ence of dysdiadochokinesia. DTR's 2+ in all 4 extremities. Negative pronator drift bilaterally. Gait normal Psychologic: Affect normal, judgement normal, mood normal. [] (SHANTAL LAL DO) Current Patient Data: Vital Signs: Vital Signs Date Time Temp Pulse Resp B/P (MAP) Pulse Ox O2 Delivery O2 Flow Rate FiO2 03/20/20 16:47 97.8 84 18 145/94 (111) 98 Room Air (SHANTAL LAL DO) EKG: EKG: EKG consistent with normal sinus rhythm. Ventricular rate of 76 bpm. Hecker normal. Flipped T waves noted in lead III. No acute ischemic changes otherwise noted. [] (SHANTAL LAL DO) Radiology/Procedures: Radiology/Procedures: [address] [address] IMAGING REPORT Signed PATIENT: KARO STEWART ACCOUNT: [id number] : 1970 LOCATION: ER AGE: 49 SEX: F EXAM STATUS: REG ER ORD. PHYSICIAN: SHANTAL LAL DO REASON: TUCKER PROCEDURE: CT ANGIOGRAPHY HEAD AND NECK Exam: CTA head and neck INDICATION: Headache TECHNIQUE: Sequential axial images through the head and neck obtained following the administration of 100 mL of Isovue-370 IV contrast. Sagittal and coronal reformatted images were reconstructed from the axial data and reviewed. 3-D reformatted images were reconstructed from the axial data and reviewed. Comparisons: CT head without contrast same day FINDINGS: CTA NECK: Visualized portions of the thoracic aorta are unremarkable. Standard three-vessel aortic arch anatomy. Right common carotid artery is patent without evidence stenosis, occlusion or aneurysm. Minimal calcified plaque at the origin of the right internal carotid artery without significant stenosis. Left common carotid artery is patent without evidence of stenosis, occlusion or aneurysm. Cervical segment of the left internal carotid artery is patent without evidence of stenosis, occlusion or aneurysm. Right vertebral artery is patent and terminates as the right PICA. Left vertebral artery is patent to the basilar artery. No evidence for stenosis, occlusion or aneurysm. Visualized soft tissues are unremarkable. CTA HEAD: Intracranial segments of the right internal carotid artery are patent without evidence stenosis, occlusion or aneurysm. Right MCA is patent. Right SOUMYA is patent. Intracranial segments of the left internal carotid artery are patent without evidence of stenosis, occlusion or aneurysm. Left MCA is patent. Left SOUMYA is patent. Basilar artery is patent without evidence of stenosis, occlusion or aneurysm. parts sales manager are patent bilaterally. IMPRESSION: 1. Patent intracranial cervical arterial vasculature without evidence of stenosis, occlusion or aneurysm. 2. Minimal calcified plaque at the origin of the right internal carotid artery. Exposure: One or more of the following in the visualized dose reduction techniques were utilized for this examination: 1. Automated exposure control 2. Adjustment of the MA and/or KV according to patient size 3. Use of iterative of reconstructive technique Electronically signed by: Elmer Deshpande MD (03/20/2020 5:49 PM) [facility] DICTATED AND SIGNED BY: ELMER DESHPANDE MD DATE: 03/20/201748 CC: KATERINA MUIR MD; SHANTAL LAL DO ~MTH0 0 [] (SHANTAL LAL DO) Heart Score: HEART Score for Chest Pain: HEART Score for Chest Pain Response (Comments) Value History Slighlty/Non-Suspicious 0 ECG Nonspecific Repolarizatio 1 Age >45 - < 65 1 Risk Factors 1 or 2 Risk Factors 1 Troponin < Normal Limit 0 Total 3 Risk Factors: Risk Factors: DM, Current or recent (<one month) smoker, HTN, HLP, family histo ry of CAD, obesity. Risk Scores: Score 0 - 3: 2.5% MACE over next 6 weeks - Discharge Home Score 4 - 6: 20.3% MACE over next 6 weeks - Admit for Clinical Observation Score 7 - 10: 72.7% MACE over next 6 weeks - Early Invasive Strategies (SHANTAL LAL DO) Course & Med Decision Making: Course & Med Decision Making Pertinent Labs and Imaging studies reviewed. (See chart for details) [] Patient is a 49-year-old female who presents with multiple complaints fever which is headache that began while having intercourse. Initial vital signs grossly unremarkable. Neurologic exam without deficit. CT a imaging of the head neck was obtained without any obvious signs of cranial hemorrhage. Because of my concern for possible subarachnoid hemorrhage, I recommended that the patient allow us to perform a lumbar puncture (LP). We discussed the procedure itself, in addition to the risks and benefits of performing, as well as the risks of not performing an LP. Any and all questions were answered. Patient understands that I cannot exclude these entities without analysis of the patient's CSF and patient also understands that delay/failure to diagnose these entities could result in serious harm and possibly even . Despite this, the patient is still declining to have the LP performed. Patient appears to be clinically competent and has capacity to make this decision. As such, we treated the patient symptomatically and recommended outpatient management with a either a PCP or a neurologist, in the next 1-2 days. Patient is to return to our ED immediately if they change their mind, or if there is any worsening of their condition (especially if increasing pain, persistant vomiting, stroke-like symptoms, weakness, fever, paralysis, etc.). At this time labs are currently pending. Additional migraine medication will be administered. Her repeat neurologically him on my assessment remains unchanged. I have signed out the patient's emergency department care to Dr. Escalante. We discussed the history, physical exam findings, completed and pending laboratory results and imaging studies. We have also discussed the current treatment plan and expected clinical course. Please refer to chart for the patient's remaining emergency department course, final disposition, and clinical impression(s). (SHANTAL LAL DO) Course & Med Decision Making Comprehensive signout received from off going physician I personally saw patient and repeated portions of history and physical exam after reviewing ER course thus far. I gave patient 40 mEq potassium orally in addition to 650 mg p.o. Tylenol and 10 mg IV Compazine for patient's TUCKER resulting in symptomatic improvement No meningeal signs but I did disclose I could not rule out concerning causes of headache such as meningitis etc. without lumbar puncture, patient with full capacity continued to decline this. Nonetheless, patient reexamined numerous times by myself and other healthcare providers with continued relief and headache. Patient feels she is ready for discharge home at this time, I feel this is appropriate Patient's blood pressure is fluctuated throughout ER visit today. She is on 5 mg amlodipine. Her high blood pressure could be contributory to presenting symptomology. I advised her to take daily blood pressure readings and increase amlodipine to 10 mg daily if she has consistent readings greater than 150 systolic Patient has good access to primary care physician, can be seen in upcoming 3 to 6 days time which I feel is appropriate Strict return precautions were discussed with good understanding by patient, all questions and concerns addressed prior to ER departure in improved condition (MELISSA ESCALANTE DO) Dragon Disclaimer: Dragvidhya Disclaimer: This electronic medical record was generated, in whole or in part, using a voice recognition dictation system. (SHANTAL LAL DO) Departure Departure: Impression: Primary Impression: Headache Qualified Codes: R51.9 - Headache, unspecified Additional Impression: Hypertension Disposition: 01 DC HOME SELF CARE/HOMELESS Condition: IMPROVED Referrals: KATERINA MUIR MD (PCP) Patient Instructions: General Headache Without Cause, Headache, FAQs, Hypertension Additional Instructions: As discussed prior to ER departure, please call your primary care physician first thing Monday morning to discuss need for ER follow-up appointment in upcoming 3 to 6 days time Please continue to take Tylenol as needed for your headaches. Also, please ensure you keep a recorded blood pressure log daily until seen by your primary care physician and/or supercharger mechanic. As discussed, increase your amlodipine from 5 mg to 10 mg daily if your top blood pressure number continues to be greater than 150. Again, if any concerning signs or symptoms present prior to outpatient follow-up please do not hesitate to come back for repeat examination It was a pleasure to take care of you and I wish you a speedy recovery! SHANTAL LAL DO Mar 20, 2020 17:00 MELISSA ESCALANTE DO Mar 20, 2020 19:44
[2020-03-20] MEDS ORDERED: IOHEXOL 350 MG/ML 100 ML VIAL. IV ONE (17:15)
[2020-03-20 17:28] LABS: BASO # 0.1 x10^3/uL (0.0-0.2); BASO % 1 % (0-3); EOS # 0.1 x10^3/uL (0.0-0.7); EOS % 2 % (0-3); HEMOGLOBIN 14.2 g/dL (12.0-15.5); LYMPH # 1.4 x10^3/uL (1.0-4.8); LYMPH % 17 % (24-48); MEAN CORPUSCULAR HEMOGLOBIN 29 pg (25-35); MEAN CORPUSCULAR HGB CONC 33 g/dL (31-37); MEAN CORPUSCULAR VOLUME 86 fL (79-100); MONO # 0.6 x10^3/uL (0.0-1.1); MONO % 8 % (0-9); NEUT # 5.8 x10^3uL (1.8-7.7); NEUT % 73 % (31-73); PLATELET COUNT 250 x10^3/uL (140-400); RED BLOOD COUNT 4.99 x10^6/uL (3.50-5.40); RED CELL DISTRIBUTION WIDTH 13.8 % (11.5-14.5)
[2020-03-20 17:38] LABS: CALCIUM 9.4 mg/dL (8.5-10.1); CREATININE 0.9 mg/dL (0.6-1.0); GFR 80.2
--- NOTE | 2020-03-20 17:41 | EKG ---
[address] [address] Test Date: 2020-03-20 Test Time: 17:28:40 Pat Name: KARO STEWART Department: Room: Gender: F Coil Tier: LACEY : 1970 Requested By: SHANTAL LAL Order Number: [id number] Reading MD: Measurements Intervals [place] Rate: 76 P: 32 CA: 178 QRS: 47 QRSD: 88 T: -3 QT: 382 QTc: 429 Interpretive Statements SINUS RHYTHM R-S TRANSITION ZONE IN V LEADS DISPLACED TO THE LEFT OTHERWISE NORMAL ECG RI6.02 No previous ECG available for comparison
--- NOTE | 2020-03-20 17:45 | RAD ---
Examination: CT HEAD WO CONTRAST History: TUCKER / Comparison/Correlation: 11/24/2017 CT head without contrast Findings: Axial images of the head were obtained without contrast. Ventricles are normal size. No intracranial hemorrhage, midline shift, or mass effect. Globes and optic nerves are intact. Mild bilateral exophthalmos is present but similar to prior exam. Visualized paranasal sinuses are unremarkable. Impression: No acute processes. PQRS Compliance Statement: One or more of the following individualized dose reduction techniques were utilized for this examination: 1. Automated exposure control 2. Adjustment of the mA and/or kV according to patient size 3. Use of iterative reconstruction technique Electronically signed by: Carlos Pastor MD (03/20/2020 5:43 PM) [facility]
--- NOTE | 2020-03-20 17:52 | RAD ---
Exam: CTA head and neck INDICATION: Headache TECHNIQUE: Sequential axial images through the head and neck obtained following the administration of 100 mL of Isovue-370 IV contrast. Sagittal and coronal reformatted images were reconstructed from the axial data and reviewed. 3-D reformatted images were reconstructed from the axial data and reviewed. Comparisons: CT head without contrast same day FINDINGS: CTA NECK: Visualized portions of the thoracic aorta are unremarkable. Standard three-vessel aortic arch anatomy. Right common carotid artery is patent without evidence stenosis, occlusion or aneurysm. Minimal calcified plaque at the origin of the right internal carotid artery without significant stenosis. Left common carotid artery is patent without evidence of stenosis, occlusion or aneurysm. Cervical segment of the left internal carotid artery is patent without evidence of stenosis, occlusion or aneurysm. Right vertebral artery is patent and terminates as the right PICA. Left vertebral artery is patent to the basilar artery. No evidence for stenosis, occlusion or aneurysm. Visualized soft tissues are unremarkable. CTA HEAD: Intracranial segments of the right internal carotid artery are patent without evidence stenosis, occlusion or aneurysm. Right MCA is patent. Right SOUMYA is patent. Intracranial segments of the left internal carotid artery are patent without evidence of stenosis, occlusion or aneurysm. Left MCA is patent. Left SOUMYA is patent. Basilar artery is patent without evidence of stenosis, occlusion or aneurysm. dot net developer are patent bilaterally. IMPRESSION: 1. Patent intracranial cervical arterial vasculature without evidence of stenosis, occlusion or aneurysm. 2. Minimal calcified plaque at the origin of the right internal carotid artery. Exposure: One or more of the following in the visualized dose reduction techniques were utilized for this examination: 1. Automated exposure control 2. Adjustment of the MA and/or KV according to patient size 3. Use of iterative of reconstructive technique Electronically signed by: Elmer Patten MD (03/20/2020 5:49 PM) [facility]
[2020-03-20] MEDS ORDERED: HALOPERIDOL LACT 5 MG/ML VIAL. IVP ONE (18:00)
--- NOTE | 2020-03-20 18:16 | RAD ---
AP chest x-ray HISTORY: Chest pain. COMPARISON: Chest x-ray December 07, 2019. FINDINGS: Heart size normal. Mediastinal silhouette is normal. No pneumothorax, pulmonary opacities or pleural effusions. Thoracic disc osteophytes. IMPRESSION: No acute process. Electronically signed by: Thai Garibay MD (03/20/2020 6:13 PM) [facility]
[2020-03-20] MEDS ORDERED: POTASSIUM CHLORIDE 20 MEQ TABLET.ER. PO ONE (18:30)
[2020-03-20 18:31] VITALS: BP 122/95
[2020-03-20] MEDS ORDERED: PROCHLORPERAZINE 10 MG/2 ML VIAL. IV ONE (19:00)
[2020-03-20] MEDS ORDERED: ACETAMINOPHEN 325 MG TABLET PO ONE (19:00)
== END 2020-03-20 19:35 | disposition home or self-care (01) ==
LOC: ER 16:37
DX: I10 Essential (primary) hypertension (principal); R51.9 Headache, unspecified; M19.90 Unspecified osteoarthritis, unspecified site; E11.9 Type 2 diabetes mellitus without complications; E78.00 Pure hypercholesterolemia, unspecified; Z20.828 Contact with and (suspected) exposure to other viral communicable diseases
CPT/HCPCS: 36415; 70450; 70496; 70498; 71045; 80048; 81025; 84484; 85025; 93005; 96361; 96374; 96375; 99285; C9803; J0780; J1200; J1630; J2765; J7030; U0003

== ENCOUNTER → 2020-08-11 | Outpatient (CLI) | payer OTHER ==
[~2020-08-11] MED LIST changes: +IOHEXOL 240 MG/ML 50ML VIAL. ONE; +IOHEXOL 300 MG/ML 75 ML VIAL. IV ONE
--- NOTE | 2020-08-11 17:18 | RAD ---
Exam: CT abdomen/pelvis with intravenous contrast Indication: Generalized abdominal pain Comparison: CT abdomen and pelvis 12/13/2018 Technique: Helical CT imaging performed of the abdomen and pelvis after the intravenous administratio n of 75 mL Omnipaque 300 contrast. Sagittal and coronal reformats were obtained. One or more of the following individualized dose reduction techniques were utilized for this examinat ion: 1. Automated exposure control 2. Adjustment of the mA and/or kV according to patient size 3. Use of iterative reconstruction technique. Findings: Lower chest: Normal. Liver: The liver is enlarged measuring 20.6 cm craniocaudally. No focal liver lesion. Gallbladder/Biliary Tree: Gallbladder is surgically absent. Pancreas: Normal. Spleen: Normal. Adrenal Glands: Normal. Kidneys/Ureters/Bladder: Kidneys are normal in size and enhance symmetrically. No hydronephrosis. Ure ters and bladder are normal. Reproductive Organs: Uterus is surgically absent. A 2.5 cm hyperdense left ovarian lesion is unchange d from 2017. Stomach, small bowel, and colon: Stomach is normal. No small bowel obstruction. Probable surgical rosalba nges of appendectomy. Vasculature: No aortic aneurysm.. Lymph Nodes: No lymphadenopathy. Peritoneum and retroperitoneum: No free fluid or free air. Bones: No acute osseous abnormality. Mild thoracal lumbar degenerative disc disease. Impression: 1. No acute abnormality. 2. Hepatomegaly. 3. Stable 2.5 cm left ovarian mass or hemorrhagic cyst. Electronically signed by: Paola Webb MD (08/11/2020 5:15 PM) [id number]
== END ==
LOC: CT 08:13
PROVIDERS: ATTEND Nurse Practitioner Family
DX: R16.0 Hepatomegaly, not elsewhere classified (principal); M51.35 Other intervertebral disc degeneration, thoracolumbar region; Z90.49 Acquired absence of other specified parts of digestive tract; Z90.710 Acquired absence of both cervix and uterus
CPT/HCPCS: 74177; Q9967

== ENCOUNTER → 2021-02-26 | Outpatient (CLI) | payer OTHER ==
[~2021-02-26] MED LIST changes: -CYCL-331 PO; +CYCL10TA19 PO; -IOHEXOL 240 MG/ML 50ML VIAL. ONE; -IOHEXOL 300 MG/ML 75 ML VIAL. IV ONE; -LISI1TAB20 PO; +LISI1TAB39 PO; -LISI2.5T PO; +LISI2.5T12 PO; +POTA-121 PO; -POTA20TA4 PO
--- NOTE | 2021-02-26 13:29 | RAD ---
EXAM: Right toes, 3 views. HISTORY: Blunt trauma. COMPARISON: None. FINDINGS: 3 views of the right toes are obtained. No displaced fracture is seen. There is no foreign body. IMPRESSION: No acute osseous finding. Electronically signed by: aMry Keller MD (02/26/2021 1:26 PM) [id number]
== END ==
LOC: RAD 12:45
PROVIDERS: ATTEND Physician Assistant Medical
DX: M79.674 Pain in right toe(s) (principal)
CPT/HCPCS: 73660

== ENCOUNTER 2021-03-31 09:13 | Emergency (ER) | payer OTHER ==
[~2021-03-31] VITALS: Ht 170.2 cm; Wt 136.2 kg
[2021-03-31 09:40] VITALS: BP 161/100
--- NOTE | 2021-03-31 09:40 | PHYS DOC ---
Past History Past Medical History: Arthritis, Diabetes, GERD, High Cholesterol, Hypertension, IBS, Other Additional Past Medical Histor: Chroinic Pain Past Surgical History: Appendectomy, Cholecystectomy, Hysterectomy, Oophorectomy, Tonsillectomy, Tubal ligation, Other Additional Past Surgical Histo: D&C; ABD HERNIA REPAIR Alcohol Use: Occasionally Drug Use: None Adult General Chief Complaint Chief Complaint: FLANK PAIN HPI HPI Patient is a 50-year-old female complaining of right flank pain. Reports onset was 2 weeks ago and has waxed and waned ever since. Nothing known makes better or worse. States that she was sleeping and awake this morning was sharp deep ri ght flank pain that sometimes radiated to her right groin. She states she tried to take Tylenol without significant relief in pain and so, given constant nature of the symptoms she came in for evaluation. States she has history of kidney stones in the past but unsure if this feels similar, denies any major changes in medication or changes in bladder or bowel function. Admits she has numerous abdominal surgeries such as removal of gallbladder and appendix. No other concerning signs or symptoms reported Review of Systems Review of Systems Fourteen body systems of review of systems have been reviewed. See HPI for pertinent positives and negative responses, other rolon all other systems are negative, non-pertinent or non-contributory Allergies Allergies Allergies Coded Allergies Type Severity Reaction Last Updated Verified No Known Drug Allergies 05/08/18 No Physical Exam Physical Exam Constitutional: Well developed, well nourished, no acute distress, non-toxic appearance. HENT: Normocephalic, atraumatic, bilateral external ears normal, oropharynx moist, no oral exudates, nose normal. Eyes: PERRLA, EOMI, conjunctiva normal, no discharge. Neck: Normal range of motion, no tenderness, supple, no stridor. Cardiovascular: Heart rate regular, sinus rhythm, no murmurs rubs or gallops Lungs & Thorax: Bilateral breath sounds clear to auscultation Abdomen: Bowel sounds normal, soft, no tenderness, no masses, no pulsatile masses. Nonsurgical abdomen, no peritoneal signs Skin: Warm, dry, no erythema, no rash. Back: No tenderness, no CVA tenderness. Extremities: No tenderness, no cyanosis, no clubbing, ROM intact, no edema. Neurologic: Alert and oriented X 3, grossly normal motor & sensory function, no focal deficits noted. Psychologic: Affect normal, judgement normal, mood normal. Current Patient Data Vital Signs Vital Signs Date Time Temp Pulse Resp B/P (MAP) Pulse Ox O2 Delivery O2 Flow Rate FiO2 03/31/21 09:40 98.1 88 20 161/100 (120) 98 Room Air Vital Signs Date Time Temp Pulse Resp B/P (MAP) Pulse Ox O2 Delivery O2 Flow Rate FiO2 03/31/21 09:40 98.1 88 20 161/100 (120) 98 Room Air Lab Results Laboratory Tests Test 03/31/21 09:19 03/31/21 10:07 Urine Collection Type Unknown Urine Color Yellow Urine Clarity Clear Urine pH 5.5 Urine Specific [place] 1.025 Urine Protein Neg Urine Glucose (UA) 100 mg/dL Urine Ketones (Stick) Neg mg/dL Urine Blood Neg Urine Nitrite Neg Urine Bilirubin Neg Urine Urobilinogen Dipstick 0.2 mg/dL Urine Leukocyte Esterase Neg Urine RBC 0 /HPF Urine WBC Occ /HPF Urine Squamous Epithelial Cells Mod /LPF Urine Bacteria 0 /HPF Urine Mucus Slight /LPF White Blood Count 6.8 x10^3/uL Red Blood Count 4.84 x10^6/uL Hemoglobin 13.9 g/dL Hematocrit 41.4 % Mean Corpuscular Volume 85 fL Mean Corpuscular Hemoglobin 29 pg Mean Corpuscular Hemoglobin Concent 34 g/dL Red Cell Distribution Width 13.3 % Platelet Count 225 x10^3/uL Neutrophils (%) (Auto) 69 % Lymphocytes (%) (Auto) 21 % Monocytes (%) (Auto) 7 % Eosinophils (%) (Auto) 3 % Basophils (%) (Auto) 1 % Neutrophils # (Auto) 4.6 x10^3uL Lymphocytes # (Auto) 1.4 x10^3/uL Monocytes # (Auto) 0.5 x10^3/uL Eosinophils # (Auto) 0.2 x10^3/uL Basophils # (Auto) 0.0 x10^3/uL Sodium Level 138 mmol/L Potassium Level 3.7 mmol/L Chloride Level 102 mmol/L Carbon Dioxide Level 28 mmol/L Anion Gap 8 Blood Urea Nitrogen 12 mg/dL Creatinine 0.8 mg/dL Estimated GFR (Cockcroft-Gault) 91.5 BUN/Creatinine Ratio 15 Glucose Level 248 mg/dL Calcium Level 8.6 mg/dL Total Bilirubin 0.5 mg/dL Aspartate Amino Transf (AST/SGOT) 18 U/L Alanine Aminotransferase (ALT/SGPT) 36 U/L Alkaline Phosphatase 111 U/L Troponin I High Sensitivity 5 ng/L Total Protein 7.4 g/dL Albumin 3.6 g/dL Albumin/Globulin Ratio 0.9 Current Medications Medications (Trade) Dose Ordered Sig/Lolis Route PRN Reason Start Time Stop Time Status Last Admin Dose Admin Sodium Chloride 1,000 ml @ 1,000 mls/hr 1X ONCE IV 03/31/21 09:45 03/31/21 10:44 DC 03/31/21 10:13 Ketorolac Tromethamine (Toradol 15mg Vial) 15 mg 1X ONCE IVP 03/31/21 09:45 03/31/21 09:49 DC 03/31/21 10:13 Fentanyl Citrate (Fentanyl 2ml Vial) 50 mcg 1X ONCE IVP 03/31/21 09:45 03/31/21 09:49 DC 03/31/21 10:12 Iohexol (Omnipaque 300 Mg/ml) 75 ml 1X ONCE IV 03/31/21 09:45 03/31/21 09:49 DC Ketorolac Tromethamine (Toradol 30mg Vial) 30 mg STK-MED ONCE .ROUTE 03/31/21 10:00 03/31/21 10:01 DC EKG EKG EKG ordered and interpreted by myself at 0953 hrs. as sinus rhythm at 78 bpm, unremarkable intervals, right axis deviation, no obvious ischemic findings, no STEMI Swede-O's course I took all my medicine Radiology/Procedures Radiology/Procedures CT of the abdomen and pelvis without contrast. 03/31/2021 9:45 AM Indication: Reason: RIGHT FLANK PAIN, X 2 WEEKS, WORSE TODAY, H/O KIDNEY STONES : Comparison Study: CT of the abdomen and pelvis without contrast August 11, 2020. October 01, 2018. CT of the abdomen and pelvis November 22, 2017. Technique: Multidetector CT imaging of the abdomen pelvis is obtained without administration of contrast. Findings: The visualized bilateral lung bases are clear. The liver, spleen, bilateral adrenal glands, and pancreas have a normal noncontrast enhanced appearance. There is a punctate nonobstructing stone in the superior pole right kidney. Bilateral kidneys have an otherwise unremarkable noncontrast enhanced appearance. No hydronephrosis or obstructive uropathy is seen. Bladder is decompressed. There is no significant free fluid or free air in the abdomen or pelvis. The appendix is surgically absent. There is no evidence of bowel obstruction or significant inflamatory change. Infrequent colonic di verticula noted. Bilobed appearance of the left ovary noted. Appearance grossly similar going back to October 2017. Status post hysterectomy, and per report right oophorectomy. Focus of calcification in expected prior region of the right ovary is similar to comparison study. There is no acute osseous abnormality identified. Degenerative changes of the visualized thoracic and lumbar spine noted. Impression: 1. No evidence of acute intra-abdominal abnormality 2. Punctate nonobstructing stone, superior pole right kidney. No evidence of acute obstructive uropathy is seen. CT DOSING PQRS STATEMENT: One or more of the following individualized dose reduction techniques were utilized for this examination: 1. Automated exposure control 2. Adjustment of the mA and/or kV according to patient size 3. Use of iterative reconstruction technique Electronically signed by: Roberto Mckeon MD (03/31/2021 10:19 AM) [id number] Heart Score C/O Chest Pain: No HEART Score for Chest Pain: HEART Score for Chest Pain Response (Comments) Value History Slighlty/Non-Suspicious 0 ECG Normal 0 Age >45 - < 65 1 Risk Factors 1 or 2 Risk Factors 1 Total 2 Risk Factors: Risk Factors: DM, Current or recent (<one month) smoker, HTN, HLP, family history of CAD, obesity. Risk Scores: Risk Factors: DM, Current or recent (<one month) smoker, HTN, HLP, family history of CAD, obesity. Course & Med Decision Making Course & Med Decision Making ABCs unremarkable HPI physical exam and comprehensive ER work-up nonconcerning for any emergent or surgical issues I discussed entirety of ER findings with patient at length with good understanding I disclosed finding of the superior pole punctate kidney stone but unclear if this is causing the patient's issues. I disclosed this might be an acute presentation more concerning pathology but given work-up and response to administered interventions while in ER setting, no indication for further diagnostic work-up or hospitalization Supportive care practices and close PCP follow-up advised. Strict return precautions were discussed with good understanding by patient. All questions and concerns addressed prior to ER departure Lindsay Disclaimer Dragon Disclaimer This electronic medical record was generated, in whole or in part, using a voice recognition dictation system. Departure Departure: Impression: Primary Impression: Abdominal pain Additional Impression: Right kidney stone Disposition: HOME / SELF CARE / HOMELESS Condition: IMPROVED Referrals: KATERINA MUIR MD (PCP) Additional Instructions: You have been evaluated in the Emergency Department today for abdominal pain. Your evaluation was not suggestive of any emergent condition requiring medical intervention at this time. However, some abdominal problems make take more time to appear. Therefore, it is important for you to watch for any new symptoms or worsening of your current condition. You most likely have a kidney stone that will hopefully pass that appears to be in right superior pole of your kidney. You should strain your urine to look for the stone. You will need to follow up with your primary care physician and discuss potential need for urology follow-up Return to the Emergency Department if you experience worsening pain, persistent fevers greater than 100.4, recurrent vomiting, blood in vomit, blood in stool, dark tarry stool, chest pain, difficulty breathing, or any other concerning symptoms. Problem Qualifiers MELISSA ESCALANTE DO Mar 31, 2021 09:40
[2021-03-31] MEDS ORDERED: KETOROLAC 15 MG/ML VIAL. IVP ONE (09:45)
[2021-03-31] MEDS ORDERED: IOHEXOL 300 MG/ML 75 ML VIAL. IV ONE (09:45)
[2021-03-31] MEDS ORDERED: IV NORMAL SALINE 1,000ML 1,000 ML IV ONE (09:45)
[2021-03-31] MEDS ORDERED: KETOROLAC 30 MG/ML VIAL. ONE (10:00)
--- NOTE | 2021-03-31 10:21 | RAD ---
CT of the abdomen and pelvis without contrast. 03/31/2021 9:45 AM Indication: Reason: RIGHT FLANK PAIN, X 2 WEEKS, WORSE TODAY, H/O KIDNEY STONES : Comparison Study: CT of the abdomen and pelvis without contrast August 11, 2020. October 01, 2018. CT of t he abdomen and pelvis November 22, 2017. Technique: Multidetector CT imaging of the abdomen pelvis is obtained without administration of contr ast. Findings: The visualized bilateral lung bases are clear. The liver, spleen, bilateral adrenal glands, and pancreas have a normal noncontrast enhanced appear ance. There is a punctate nonobstructing stone in the superior pole right kidney. Bilateral kidneys have an otherwise unremarkable noncontrast enhanced appearance. No hydronephrosis or obstructive uropathy is seen. Bladder is decompressed. There is no significant free fluid or free air in the abdomen or pelvis. The appendix is surgically absent. There is no evidence of bowel obstruction or significant inflamatory change. Infrequent colonic diverticula noted. Bilobed appearance of the left ovary noted. Appearance grossly similar going back to October 2017. Status post hysterectomy, and per report right oophorectomy. Focus of calcification in expected prior region of the right ovary is similar to comparison study. T here is no acute osseous abnormality identified. Degenerative changes of the visualized thoracic and lumbar spine noted. Impression: 1. No evidence of acute intra-abdominal abnormality 2. Punctate nonobstructing stone, superior pole right kidney. No evidence of acute obstructive uropat hy is seen. CT DOSING PQRS STATEMENT: One or more of the following individualized dose reduction techniques were utilized for this examinat ion: 1. Automated exposure control 2. Adjustment of the mA and/or kV according to patient size 3. Use of iterative reconstruction technique Electronically signed by: Roberto Mckeon MD (03/31/2021 10:19 AM) [id number]
--- NOTE | 2021-03-31 10:26 | EKG ---
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
[2021-03-31 10:27] LABS: BASO % 1 % (0-3); EOS # 0.2 x10^3/uL (0.0-0.7); EOS % 3 % (0-3); HEMATOCRIT 41.4 % (36.0-47.0); HEMOGLOBIN 13.9 g/dL (12.0-15.5); LYMPH # 1.4 x10^3/uL (1.0-4.8); LYMPH % 21 % (24-48); MEAN CORPUSCULAR HEMOGLOBIN 29 pg (25-35); MEAN CORPUSCULAR HGB CONC 34 g/dL (31-37); MEAN CORPUSCULAR VOLUME 85 fL (79-100); MONO # 0.5 x10^3/uL (0.0-1.1); MONO % 7 % (0-9); NEUT # 4.6 x10^3uL (1.8-7.7); NEUT % 69 % (31-73); PLATELET COUNT 225 x10^3/uL (140-400); RED BLOOD COUNT 4.84 x10^6/uL (3.50-5.40); RED CELL DISTRIBUTION WIDTH 13.3 % (11.5-14.5); WHITE BLOOD COUNT 6.8 x10^3/uL (4.0-11.0)
[2021-03-31 10:40] LABS: CALCIUM 8.6 mg/dL (8.5-10.1); CREATININE 0.8 mg/dL (0.6-1.0); GFR 91.5; POTASSIUM 3.7 mmol/L (3.5-5.1)
[2021-03-31 10:46] LABS: ALBUMIN 3.6 g/dL (3.4-5.0); ALBUMIN/GLOBULIN RATIO 0.9 (1.0-1.7); TOTAL BILIRUBIN 0.5 mg/dL (0.2-1.0); TOTAL PROTEIN 7.4 g/dL (6.4-8.2)
[2021-03-31 11:00] LABS: BILIRUBIN,URINE NEG (NEG); CLARITY,URINE CLEAR; COLOR,URINE YELLOW; GLUCOSE,URINE 100 mg/dL (NEG)
[2021-03-31 11:01] LABS: NITRITE,URINE NEG (NEG); UROBILINOGEN,URINE 0.2 mg/dL (0.2 mg/dL)
[2021-03-31 11:02] LABS: BACTERIA,URINE 0 /HPF (0-FEW); RBC,URINE 0 /HPF (0-2); SQUAMOUS EPITHELIAL CELL,UR MOD /LPF; WBC,URINE OCC /HPF (0-4)
== END 2021-03-31 11:35 | disposition home or self-care (01) ==
LOC: ER 09:13
DX: N20.0 Calculus of kidney (principal); M19.90 Unspecified osteoarthritis, unspecified site; E11.9 Type 2 diabetes mellitus without complications; K21.9 Gastro-esophageal reflux disease without esophagitis; E78.00 Pure hypercholesterolemia, unspecified; I10 Essential (primary) hypertension; K52.89 Other specified noninfective gastroenteritis and colitis; Z90.49 Acquired absence of other specified parts of digestive tract; Z90.89 Acquired absence of other organs; Z90.710 Acquired absence of both cervix and uterus; Z98.51 Tubal ligation status; Z90.722 Acquired absence of ovaries, bilateral
CPT/HCPCS: 36415; 74176; 80053; 81001; 84484; 85025; 93005; 96361; 96374; 96375; 99285; J1885; J3010; J7030

== ENCOUNTER 2021-05-05 17:22 | Emergency (ER) | payer OTHER ==
[~2021-05-05] VITALS: Ht 170.2 cm; Wt 134.0 kg
[2021-05-05 18:24] VITALS: BP 181/106
--- NOTE | 2021-05-05 18:51 | RAD ---
Study: XR CHEST 1V Indication: Cough. Comparison: 03/20/2020 Findings: The cardiomediastinal silhouette and braydon are within normal limits. No localized airspace opacity, pl eural effusion or pneumothorax. Similar aeration pattern of the lungs from the comparison. Impression: No radiographic evidence for pneumonia at this time. No significant change from the 03/20/2020 exam. Electronically signed by: SUSANNA AVILA MD (05/05/2021 6:49 PM) [facility]
[2021-05-05 19:04] LABS: INFLUENZA A PATIENT NEGATIVE (NEGATIVE); INFLUENZA B PATIENT NEGATIVE (NEGATIVE)
[2021-05-05] MEDS ORDERED: BENZ-8 PO (19:37)
--- NOTE | 2021-05-05 19:37 | PHYS DOC ---
Past History Past Medical History: Arthritis, Diabetes, GERD, High Cholesterol, Hypertension, IBS, Other Additional Past Medical Histor: hyperkalemia (NIURKA CORTES) Past Surgical History: Appendectomy, Cholecystectomy, Hysterectomy, Tonsillectomy, Tubal ligation, Other Additional Past Surgical Histo: D&C, partial hysterectomy (NIURKA CORTES) Alcohol Use: Occasionally Drug Use: None (NIURKA CORTES) General Adult EDM: Chief Complaint: COUGH HPI: HPI: Patient is a 50 year old female who presents with 5 days of chills, generalized weakness, cough, sore throat, runny nose. Patient reports associated intermittent nausea without vomiting or abdominal pain. She is vaccinated against COVID-19. Multiple people in her home have been sick over the past month, but nobody has tested covid positive. She reports she lives with her and four children, not all of which have been vaccinated. Patient states she does not spend much time outside the house outside of work. (NIURKA CORTES) Review of Systems: Review of Systems: Constitutional: See HPI Eyes: Denies change in visual acuity, visual field deficits or discharge HENT: See HPI Respiratory: See HPI Cardiovascular: Denies chest pain, palpitations or edema GI: See HPI : Denies dysuria or hematuria Musculoskeletal: Denies back pain or joint pain Integument: Denies rash or other skin lesion Neurologic: Denies headache, focal weakness or sensory changes (NIURKA CORTES) Allergies: Allergies: Allergies Coded Allergies Type Severity Reaction Last Updated Verified No Known Drug Allergies 05/08/18 No (NIURKA CORTES) Physical Exam: PE: Constitutional: Well developed, well nourished, no acute distress, non-toxic appearance. HENT: Normocephalic, atraumatic, bilateral external ears without deformity or discharge, oropharynx moist, postnasal drip appreciated, no oral exudates, nose without obvious deformity or discharge. Eyes: PERRLA, EOMI, conjunctiva normal, no discharge. Neck: Normal range of motion, no tenderness, supple, no stridor. Cardiovascular: Heart rate regular rhythm, no murmur. Lungs & Thorax: Bilateral breath sounds without wheezes, rales or rhonchi. Abdomen: Bowel sounds normal, soft, no tenderness, no masses, no pulsatile masses. Skin: Warm, dry, no erythema, no rash. (NIURKA CORTES) Current Patient Data: Labs: Laboratory Tests Test 05/05/21 18:38 Influenza Type A (Rapid) Negative (NEGATIVE) Influenza Type B (Rapid) Negative (NEGATIVE) SARS-CoV-2 Antigen (Rapid) Positive (NEGATIVE) *A Vital Signs: Vital Signs Date Time Temp Pulse Resp B/P (MAP) Pulse Ox O2 Delivery O2 Flow Rate FiO2 05/05/21 18:24 98.4 85 18 181/106 (131) 98 (NIURKA CORTES) Radiology/Procedures: Radiology/Procedures: PROCEDURE: CHEST AP ONLY Study: XR CHEST 1V Indication: Cough. Comparison: 03/20/2020 Findings: The cardiomediastinal silhouette and braydon are within normal limits. No localized airspace opacity, pleural effusion or pneumothorax. Similar aeration pattern of the lungs from the comparison. Impression: No radiographic evidence for pneumonia at this time. No significant change from the 03/20/2020 exam. Electronically signed by: SUSANNA AVILA MD (05/05/2021 6:49 PM) [facility] (NIURKA CORTES) Heart Score: C/O Chest Pain: No (NIURKA CORTES) Course & Med Decision Making: Course & Med Decision Making Pertinent Labs and Imaging studies reviewed. (See chart for details) Patient is a 50-year-old female with many comorbidities who presents with 5-day history of multiple complaints. She reports that last month, her had a "stomach bug," but tested COVID negative. Shortly after, one of her sons had influenza B. Her other son has not been feeling well, but is started to feel better. Patient reports she is vaccinated and does not frequently leave her home. Work-up today will include influenza A&B as well as COVID-19 swabs, chest x-ray. Patient tested COVID positive and was informed of findings. Had a lengthy discussion about isolation and quarantine protocols. She was provided with return precautions and care instructions. Patient understands and is agreeable to discharge plan. (NIURKA CORTES) Dragon Disclaimer: Dragon Disclaimer: This electronic medical record was generated, in whole or in part, using a voice recognition dictation system. (NIURKA CORTES) Departure Departure: Impression: Primary Impression: COVID-19 virus infection Disposition: 01 HOME / SELF CARE / HOMELESS Condition: STABLE Referrals: KATERINA MUIR MD (PCP) Patient Instructions: Viral Syndrome Additional Instructions: Follow the following supportive treatment measures: - Cool mist humidifier with plain water at bedside while you sleep - Mucinex (guaifenesin) per box instructions - Tessalon perles (benzonatate) for cough, especially at night before bed - Alternate naproxen and acetaminophen every four hours for body aches/fever/headache If antibiotics were prescribed, take them as directed. You have been tested for or diagnosed with COVID-19 infection. It is an infection caused by a new type of coronavirus. COVID-19 will cause cold-like or mild flu symptoms in most. It can cause more severe symptoms like problems breathing in some. There is no treatment for COVID-19. The body will clear the infection over time. Self-care will help to ease discomfort. Steps to Take: - Rest as needed. - Choose healthy foods including fruits and vegetables. Drink water throughout the day. - Get plenty of sleep each night. - If you smoke, try to quit. It may ease breathing. - Avoid alcohol. - Keep Others Healthy - The virus can spread to others. Droplets are released every time you sneeze or cough. The droplets can get into the mouth, nose, or eyes of people near you and lead to infection. To lower the chances of spreading COVID-19 to others: Stay at home until your doctor has said it is safe to leave. If you tested positive this will mean staying isolated until both of the following are true: - At least 7 days have passed since the start of illness. - You are free of fever for at least 72 hours without the use of medicine. During this time: - Avoid public areas, events, or transportation. Do not return to work or school until your doctor has said it is safe to do so. - Call ahead if you need to go to a medical center. Let them know you may have COVID-19. It will help them guide you where to go. They may also ask you to wear a facemask when you come to the office. - If you call for emergency medical services, let them know you may have COVID- 19. While at home: - Try to avoid close contact with others. Stay about 6 feet away. - If possible, spend most of your time in a separate room from others. - Use a face mask if you will be in close contact with others such as sharing a room or vehicle. - Have someone wipe down common surfaces in the home. Use household christian science healer every day on areas like doorknobs, counters, or sinks. - Cough or sneeze into a tissue. Throw the tissue away right after use. If a tissue is not available, cough or sneeze into your elbow. - Wash your hands often. Wash them after sneezing or coughing. Use soap and water and wash or at least 20 seconds. Alcohol based hand building cleaner can be used if soap and water is not available. - Do not prepare food for others. Avoid sharing personal items like forks, spoons, or toothbrushes. - Avoid close contact with pets while you are sick. There is no evidence of the virus passing to pets. This is a safety step until more is known about this virus. - Isolation can be frustrating. Social interaction can help. Keep in touch with friends and family through phone and tech options. You can still interact with others in your home, just keep a safe distance of about 6 feet. Follow-up: - Your doctors office will check in with you to see if there are any changes in your health. - You may be asked to keep track of symptoms to share with them. They will also let you know when you are clear to be in public again. Contact your doctor if your recovery is not going as you expect. Get emergency c are if you have problems such as: - Trouble breathing with oxygen saturation <90% - Nonstop chest pain or pressure - Changes in awareness, confusion, or problems waking - Lips or face have bluish color - Worsening of symptoms If you think you have an emergency, call for emergency medical services right away. As taken from [facility] Benzonatate (BENZONATATE) 100 Mg Capsule 1-2 CAP PO HS for cough, #20 CAP Prov: NIURKA CORTES 05/05/21 Attending Signature Attending Signature I have participated in the care of this patient and I have reviewed and agree with all pertinent clinical information above including history, exam, and recommendations. (WILLIAM FINE MD) NIURKA CORTES May 05, 2021 19:37 WILLIAM FINE MD May 06, 2021 18:38
== END 2021-05-05 19:48 | disposition home or self-care (01) ==
LOC: ER 17:22
DX: U07.1 COVID-19 (principal); M19.90 Unspecified osteoarthritis, unspecified site; E11.9 Type 2 diabetes mellitus without complications; K21.9 Gastro-esophageal reflux disease without esophagitis; E78.00 Pure hypercholesterolemia, unspecified; I10 Essential (primary) hypertension
CPT/HCPCS: 71045; 87426; 87804; 99284

== ENCOUNTER 2021-05-26 19:40 | Emergency (ER) | payer OTHER ==
[~2021-05-26] VITALS: Ht 170.2 cm; Wt 131.8 kg
[~2021-05-26 19:40] MED LIST changes: +BENZ-8 PO
--- NOTE | 2021-05-26 19:47 | PHYS DOC ---
Past History Past Medical History: Arthritis, Diabetes, GERD, High Cholesterol, Hypertension, IBS, Other Additional Past Medical Histor: hyperkalemia Past Surgical History: Appendectomy, Cholecystectomy, Hysterectomy, Tonsillectomy, Tubal ligation, Other Additional Past Surgical Histo: D&C, partial hysterectomy Alcohol Use: Occasionally Drug Use: None Adult General HPI HPI Patient is a 50-year-old female with a past medical history of noninsulin-d ependent diabetes, hypertension and hypercholesteremia who presents with a chief complaint of high blood sugar at home. States it was 480 at home. States she was going to come into the emergency department and just call her primary care physician in the morning but her children wanted her to come in. Denies any headache, pain or trouble swallowing, chest pain, shortness of breath, abdominal pain, nausea, vomiting, diarrhea. Denies any known ill contacts. States she is eating and drinking normally for her. States she is making urine and stool normally for her. States that she takes Trulicity at home. Review of Systems Review of Systems Review of systems otherwise unremarkable except noted in HPI Allergies Allergies Allergies Coded Allergies Type Severity Reaction Last Updated Verified No Known Drug Allergies 05/08/18 No Physical Exam Physical Exam Constitutional: Well developed, well nourished, no acute distress, non-toxic appearance. [] HENT: Normocephalic, atraumatic, oropharynx moist, Eyes: conjunctiva normal, no discharge. [] Neck: Normal range of motion, no tenderness, supple, no stridor. [] Cardiovascular:Heart rate regular rhythm, no murmur [] Lungs & Thorax: Bilateral breath sounds clear to auscultation [] Abdomen: soft, no tenderness, no masses, no pulsatile masses. [] Skin: Warm, dry, no erythema, no rash. [] Back: No tenderness, no CVA tenderness. [] Extremities: No tenderness, no cyanosis, no clubbing, ROM intact, no edema. [] Neurologic: Alert and oriented X 3, normal motor function, normal sensory fun ction, no focal deficits noted. [] Psychologic: Affect normal, judgement normal, mood normal. [] EKG EKG [] Radiology/Procedures Radiology/Procedures [] Heart Score C/O Chest Pain: No Risk Factors: Risk Factors: DM, Current or recent (<one month) smoker, HTN, HLP, family history of CAD, obesity. Risk Scores: Risk Factors: DM, Current or recent (<one month) smoker, HTN, HLP, family history of CAD, obesity. Course & Med Decision Making Course & Med Decision Making Patient is a 50-year-old female who presents with a chief complaint of hyperglycemia Vital signs not concerning. Physical exam noted above. Initial blood sugar 437 down to 397 after fluid. Patient not on insulin. No signs of acidemia. Urine with glucosuria but no ketones. Discussed findings with patient. Discussed blood sugar management at home. Discussed diet. Discussed diabetes management overall and ability to reverse this process. Patient stated she felt well and was ready to go on home. Advised to call primary care physician in the morning to update on ED visit. Gave return precautions to the ED. Patient grateful, verbalized understanding and agreed with plan of discharge. [] Dragon Disclaimer Dragon Disclaimer This electronic medical record was generated, in whole or in part, using a voice recognition dictation system. Departure Departure: Impression: Primary Impression: Hyperglycemia Disposition: HOME / SELF CARE / HOMELESS Condition: STABLE Referrals: KATERINA MUIR MD (PCP) Patient Instructions: Diabetes Meal Planning Guide, Diabetes, FAQs, Hyperglycemia Additional Instructions: Thank you for coming into the emergency department tonight and allowing us to take care of you. Please read all of the attached information very carefully to go back over all of the things we discussed on management of your diabetes. Please call your primary care physician in the morning to update and set up a follow-up as soon as you can. Please come back with new or concerning symptoms as we discussed. COLE COCHRAN MD May 26, 2021 19:47
[2021-05-26] MEDS ORDERED: IV RINGERS SOLUTION,LACTATED 1,000 ML IV ONE (20:00)
[2021-05-26 20:42] LABS: CALCIUM 9.4 mg/dL (8.5-10.1); CREATININE 0.7 mg/dL (0.6-1.0); GFR 106.7; POTASSIUM 4.9 mmol/L (3.5-5.1)
[2021-05-26 20:52] LABS: BACTERIA,URINE 0 /HPF (0-FEW); BILIRUBIN,URINE NEG (NEG); CLARITY,URINE CLEAR; COLOR,URINE YELLOW; GLUCOSE,URINE >=1000 mg/dL (NEG); NITRITE,URINE NEG (NEG); RBC,URINE 0 /HPF (0-2); SQUAMOUS EPITHELIAL CELL,UR FEW /LPF; UROBILINOGEN,URINE 0.2 mg/dL (0.2 mg/dL); WBC,URINE RARE /HPF (0-4)
[2021-05-26 22:00] VITALS: BP 131/78
== END 2021-05-26 22:03 | disposition home or self-care (01) ==
LOC: ER 19:40
DX: E11.65 Type 2 diabetes mellitus with hyperglycemia (principal); I10 Essential (primary) hypertension; E78.00 Pure hypercholesterolemia, unspecified; M19.90 Unspecified osteoarthritis, unspecified site; K21.9 Gastro-esophageal reflux disease without esophagitis
CPT/HCPCS: 36415; 80048; 81001; 82947; 99283

== ENCOUNTER 2021-07-29 23:49 | Emergency (ER) | payer OTHER ==
[~2021-07-29] VITALS: Ht 170.2 cm; Wt 132.7 kg
[~2021-07-29 23:49] MED LIST changes: -OMEP1CAP24 PO; +OMEP1CAP32 PO
--- NOTE | 2021-07-30 00:22 | EKG ---
[address] [address] Test Date: 2021-07-30 Test Time: 00:18:09 Pat Name: KARO STEWART Department: Room: Gender: F Patient Placement Coordinator: : 1970 Requested By: GARTH OZUNA Order Number: [id number] Reading MD: Derek Duncan Measurements Intervals Blum Rate: 81 P: 43 DE: 160 QRS: 37 QRSD: 80 T: 30 QT: 372 QTc: 438 Interpretive Statements SINUS RHYTHM NORMAL ECG RI6.02 Compared to ECG 03/31/2021 09:47:51 No significant changes Electronically Signed On 07-31-2021 21:23:27 CDT by Derek Duncan
--- NOTE | 2021-07-30 00:27 | PHYS DOC ---
Past History Past Medical History: Arthritis, Diabetes, GERD, High Cholesterol, Hypertension, IBS, Other Additional Past Medical Histor: hyperkalemia Past Surgical History: Appendectomy, Cholecystectomy, Hysterectomy, Tonsillectomy, Tubal ligation, Other Additional Past Surgical Histo: D&C, partial hysterectomy, hernia Alcohol Use: Occasionally Drug Use: None General Adult EDM: Chief Complaint: COUGH HPI: HPI: 51-year-old female presents with cough, congestion, chest pain. She has had a cough for couple days. She presents today because she is also had some central chest congestion. She does not really describe it as pain. She is also had some diarrhea and epigastric abdominal pain. Last time she felt like this she was septic with cholecystitis. She knows that can happen again. She is wants to make sure nothing serious is developing. She has had chills but no measured fever. Review of Systems: Review of Systems: Constitutional: Chills Eyes: Denies change in visual acuity HENT: Denies nasal congestion or sore throat Respiratory: Cough without shortness of breath Cardiovascular: Chest pain GI: Epigastric abdominal pain, diarrhea : Denies dysuria Musculoskeletal: Denies back pain or joint pain Integument: Denies rash Neurologic: Denies headache, focal weakness or sensory changes Endocrine: Denies polyuria or polydipsia Lymphatic: Denies swollen glands Psychiatric: Denies depression or anxiety Allergies: Allergies: Allergies Coded Allergies Type Severity Reaction Last Updated Verified No Known Drug Allergies 05/08/18 No Physical Exam: PE: Constitutional: Well developed, well nourished, morbidly obese, no acute distress, non-toxic appearance. [] HENT: Normocephalic, atraumatic, bilateral external ears normal, oropharynx moist, no oral exudates, nose normal. [] Eyes: PERRLA, EOMI, conjunctiva normal, no discharge. [] Neck: Normal range of motion, no tenderness, supple, no stridor. [] Cardiovascular: Heart rate 81, regular rhythm, no murmur [] Lungs & Thorax: Bilateral breath sounds clear to auscultation [] Abdomen: Bowel sounds normal, soft, epigastric tenderness, no masses, no pulsatile masses. [] Skin: Warm, dry, no erythema, no rash. [] Back: No tenderness, no CVA tenderness. [] Extremities: No tenderness, no cyanosis, no clubbing, ROM intact, no edema. [] Neurologic: Alert and oriented X 3, normal motor function, normal sensory function, no focal deficits noted. [] Psychologic: Affect normal, judgement normal, mood normal. [] EKG: EKG: Sinus rhythm, rate 81, normal axis, no ST elevation depression. [] Radiology/Procedures: Radiology/Procedures: [] Impressions: EXAMINATION: XR CHEST 1V CLINICAL HISTORY: Cough, chest pain. EXAM DATE/TIME: 07/30/2021 12:03 AM COMPARISON: 05/05/2021 FINDINGS: Lines, Tubes, and Devices: None. Cardiomediastinal Silhouette: Normal heart size. Lungs and Pleura: No evidence of focal airspace consolidation or pleural effusion. Pulmonary vasculature unremarkable. Bones and Soft Tissues: Degenerative changes in the thoracic spine. IMPRESSION: No evidence of acute cardiopulmonary abnormality or significant interval change. Electronically signed by: Mateus Montana DO (07/30/2021 1:56 AM) [facility] DICTATED AND SIGNED BY: MATEUS MONTANA DO DATE: 07/30/21 0155 CC: GARTH OZUNA DO; KATERINA MUIR MD ~ EXAMINATION: CT ABDOMEN+PELVIS W CLINICAL HISTORY: Epigastric pain. HISTORY OF APPENDECTOMY, HERNIA, RT OOPHORECTOMY, CHOLECYSTECTOMY. TECHNIQUE: CT of the abdomen and pelvis was performed using standard technique, scanning from just above the dome of the diaphragm to the symphysis pubis following administration of intravenous contrast. CT Dose Reduction Employed: One or more of the following individualized dose reduction techniques were utilized for this examination: 1. Automated exposure control 2. Adjustment of the mA and/or kV according to patient size 3. Use of iterative reconstruction technique. COMPARISON: 03/31/2021 FINDINGS: Visualized heart and lungs unremarkable. Hepatomegaly with steatosis. Cholecystectomy. Pancreas, spleen, and adrenal glands unremarkable. Bilateral subcentimeter hypoenhancing cortical foci, too small adequately characterize. Nondiagnostic evaluation of the nondistended urinary bladder. Hysterectomy. No bowel dilation or definite wall thickening. Mild left-sided colonic diverticulosis. Appendectomy. Well-circumscribed groundglass opacity and associated soft tissue nodules/lymph nodes in the central mesentery, compatible with mesenteric panniculitis and similar to prior study. Minimal arterial atherosclerotic calcification without a neurysm. Multilevel thoracolumbar degenerative changes. IMPRESSION: No evidence of acute abdominopelvic abnormality. Hepatic steatosis. Redemonstration of findings compatible with mesenteric panniculitis. Additional nonacute findings as described. Electronically signed by: Mateus Montana DO (07/30/2021 1:55 AM) [facility] DICTATED AND SIGNED BY: MATEUS MONTANA DO DATE: 07/30/21 0149 CC: GARTH OZUNA DO; KATERINA MUIR MD ~ Heart Score: C/O Chest Pain: Yes HEART Score for Chest Pain: HEART Score for Chest Pain Response (Comments) Value History Slighlty/Non-Suspicious 0 ECG Normal 0 Age >45 - < 65 1 Risk Factors 1 or 2 Risk Factors 1 Troponin < Normal Limit 0 Total 2 Risk Factors: Risk Factors: DM, Current or recent (<one month) smoker, HTN, HLP, family history of CAD, obesity. Risk Scores: Score 0 - 3: 2.5% MACE over next 6 weeks - Discharge Home Score 4 - 6: 20.3% MACE over next 6 weeks - Admit for Clinical Observation Score 7 - 10: 72.7% MACE over next 6 weeks - Early Invasive Strategies Course & Med Decision Making: Course & Med Decision Making Pertinent Labs and Imaging studies reviewed. (See chart for details) The patient's labs are unremarkable. Her urinalysis is negative for infection. A CT of the abdomen and pelvis is negative for acute findings. There are some old findings. See official read for more details. Chest x-ray is negative for acute findings. The patient likely has a viral URI with cough. I have advised supportive care. She is stable for discharge at this time. [] Dragon Disclaimer: Dragon Disclaimer: This electronic medical record was generated, in whole or in part, using a voice recognition dictation system. Departure Departure: Impression: Primary Impression: Viral URI with cough Disposition: HOME / SELF CARE / HOMELESS Condition: STABLE Referrals: KATERINA MUIR MD (PCP) Patient Instructions: Upper Respiratory Infection, Adult, [id number] GARTH OZUNA DO Jul 30, 2021 00:27
[2021-07-30] MEDS ORDERED: IOHEXOL 300 MG/ML 75 ML VIAL. IV ONE (00:30)
[2021-07-30] MEDS ORDERED: CONTRAST GIVEN. MC PRN (00:45)
[2021-07-30] MEDS ORDERED: KETOROLAC 30 MG/ML VIAL. IVP ONE (00:45)
[2021-07-30] MEDS ORDERED: METOCLOPRAMIDE HCL 10 MG/2 ML VIAL. IVP ONE (00:45)
[2021-07-30] MEDS ORDERED: diphenhydrAMINE 50 MG/ML VIAL IVP ONE (00:45)
[2021-07-30 00:49] LABS: BASO # 0.1 x10^3/uL (0.0-0.2); BASO % 1 % (0-3); EOS # 0.1 x10^3/uL (0.0-0.7); EOS % 2 % (0-3); HEMATOCRIT 42.5 % (36.0-47.0); HEMOGLOBIN 14.3 g/dL (12.0-15.5); LYMPH # 1.8 x10^3/uL (1.0-4.8); LYMPH % 27 % (24-48); MEAN CORPUSCULAR HEMOGLOBIN 29 pg (25-35); MEAN CORPUSCULAR HGB CONC 34 g/dL (31-37); MEAN CORPUSCULAR VOLUME 86 fL (79-100); MONO # 0.4 x10^3/uL (0.0-1.1); MONO % 6 % (0-9); NEUT # 4.3 x10^3uL (1.8-7.7); NEUT % 64 % (31-73); PLATELET COUNT 212 x10^3/uL (140-400); RED BLOOD COUNT 4.95 x10^6/uL (3.50-5.40); RED CELL DISTRIBUTION WIDTH 13.7 % (11.5-14.5); WHITE BLOOD COUNT 6.7 x10^3/uL (4.0-11.0)
[2021-07-30 00:57] LABS: CALCIUM 9.4 mg/dL (8.5-10.1); CREATININE 0.8 mg/dL (0.6-1.0); GFR 91.1; POTASSIUM 3.6 mmol/L (3.5-5.1)
[2021-07-30 01:02] LABS: ALBUMIN 3.3 g/dL (3.4-5.0); TOTAL BILIRUBIN 0.4 mg/dL (0.2-1.0); TOTAL PROTEIN 6.5 g/dL (6.4-8.2)
[2021-07-30 01:11] LABS: CLARITY,URINE CLEAR; COLOR,URINE YELLOW; GLUCOSE,URINE NEG (NEG); UROBILINOGEN,URINE 0.2 mg/dL (0.2 mg/dL)
[2021-07-30 01:12] LABS: BACTERIA,URINE 0 /HPF (0-FEW); NITRITE,URINE NEG (NEG); RBC,URINE 0 /HPF (0-2); SQUAMOUS EPITHELIAL CELL,UR FEW /LPF
--- NOTE | 2021-07-30 01:57 | RAD ---
EXAMINATION: CT ABDOMEN+PELVIS W CLINICAL HISTORY: Epigastric pain. HISTORY OF APPENDECTOMY, HERNIA, RT OOPHORECTOMY, CHOLECYSTECTOMY. TECHNIQUE: CT of the abdomen and pelvis was performed using standard technique, scanning from just ab ove the dome of the diaphragm to the symphysis pubis following administration of intravenous contrast . CT Dose Reduction Employed: One or more of the following individualized dose reduction techniques wer e utilized for this examination: 1. Automated exposure control 2. Adjustment of the mA and/or kV ac cording to patient size 3. Use of iterative reconstruction technique. COMPARISON: 03/31/2021 FINDINGS: Visualized heart and lungs unremarkable. Hepatomegaly with steatosis. Cholecystectomy. Pancreas, spleen, and adrenal glands unremarkable. Bilateral subcentimeter hypoenhancing cortical foci, too small adequately characterize. Nondiagnostic evaluation of the nondistended urinary bladder. Hysterectomy. No bowel dilation or definite wall thickening. Mild left-sided colonic diverticulosis. Appendectomy. Well-circumscribed groundglass opacity and associated soft tissue nodules/lymph nodes in the central mesentery, compatible with mesenteric panniculitis and similar to prior study. Minimal arterial ather osclerotic calcification without aneurysm. Multilevel thoracolumbar degenerative changes. IMPRESSION: No evidence of acute abdominopelvic abnormality. Hepatic steatosis. Redemonstration of findings compatible with mesenteric panniculitis. Additional nonacute findings as described. Electronically signed by: Mateus Izaguirre DO (07/30/2021 1:55 AM) [facility]
--- NOTE | 2021-07-30 01:58 | RAD ---
EXAMINATION: XR CHEST 1V CLINICAL HISTORY: Cough, chest pain. EXAM DATE/TIME: 07/30/2021 12:03 AM COMPARISON: 05/05/2021 FINDINGS: Lines, Tubes, and Devices: None. Cardiomediastinal Silhouette: Normal heart size. Lungs and Pleura: No evidence of focal airspace consolidation or pleural effusion. Pulmonary vasculat ure unremarkable. Bones and Soft Tissues: Degenerative changes in the thoracic spine. IMPRESSION: No evidence of acute cardiopulmonary abnormality or significant interval change. Electronically signed by: Mateus Izaguirre DO (07/30/2021 1:56 AM) [facility]
[2021-07-30 02:29] VITALS: BP 163/97
== END 2021-07-30 02:35 | disposition home or self-care (01) ==
LOC: ER 23:49
DX: J06.9 Acute upper respiratory infection, unspecified (principal); R07.89 Other chest pain; M19.90 Unspecified osteoarthritis, unspecified site; E11.9 Type 2 diabetes mellitus without complications; K21.9 Gastro-esophageal reflux disease without esophagitis; E78.00 Pure hypercholesterolemia, unspecified; I10 Essential (primary) hypertension; Z90.49 Acquired absence of other specified parts of digestive tract; Z90.89 Acquired absence of other organs; Z90.710 Acquired absence of both cervix and uterus; Z98.51 Tubal ligation status
CPT/HCPCS: 36415; 71045; 74177; 80053; 81001; 84484; 85025; 93005; 96374; 96375; 99285; J1200; J1885; J2765; Q9967

== ENCOUNTER 2021-08-09 16:47 | Emergency (ER) | payer OTHER ==
[~2021-08-09] VITALS: Ht 170.2 cm; Wt 130.5 kg
--- NOTE | 2021-08-09 18:08 | PHYS DOC ---
Past History Past Medical History: Arthritis, Diabetes, GERD, High Cholesterol, Hypertension, IBS, Other Additional Past Medical Histor: hyperkalemia Past Surgical History: No Surgical History, Appendectomy, Cholecystectomy, Hysterectomy, Tonsillectomy, Tubal ligation, Other Additional Past Surgical Histo: d & c Alcohol Use: None Drug Use: None General Adult EDM: Chief Complaint: FEVER HPI: HPI: ".. I been running a fever..... They do have me on antibiotics for UTI.... But up got this cyst or something under my left breast that is very hot in area where you had a previous infection..",, I am diabetic... but I have not been checking my sugars.. because I ran out of strips..." Patient is a 51 year old femae who presents with above hx and complaints of an infected cyst Lt. breast cleavage. Patient is a known diabetic. Area under left breast is red and edematous. Does not appear to be a cyst that is infected. Patient has no striations no adenopathy. Patient does have an old scar at the same location. Patient has a known history of diabetes diabetic neuropathy, hypertension, generalized osteoarthritis, hyperlipidemia, glaucoma, nephrolithiasis, fatty liver and thyroid nodules. She had previous significant medical surgical history of tubal ligation right oophorectomy total hysterectomy, appendectomy cholecystectomy and colonoscopy scopic exams have been completed within the past 10 years. Currently taking a nitrofurantoin antibiotic. Review of Systems: Review of Systems: Constitutional: Complains of fever chills Eyes: Denies change in visual acuity HENT: Denies nasal congestion or sore throat Respiratory: Denies cough or shortness of breath Cardiovascular: Denies chest pain or edema GI: Denies abdominal pain, nausea, vomiting, bloody stools or diarrhea : Denies dysuria Musculoskeletal: Denies back pain or joint pain Integument: Complains of cellulitis or an infected cyst left breast cleavage Neurologic: Denies headache, focal weakness or sensory changes Endocrine: Denies polyuria or polydipsia Lymphatic: Denies swollen glands Psychiatric: Denies depression or anxiety Family History: Family History: Diabetes and hypertension Current Medications: Current Meds: See nursing for home meds Allergies: Allergies: Allergies Coded Allergies Type Severity Reaction Last Updated Verified No Known Drug Allergies 05/08/18 No Physical Exam: PE: Constitutional: Moderate acute distress, non-toxic appearance. [] HENT: Normocephalic, atraumatic, bilateral external ears normal, oropharynx moist, no oral exudates, nose normal. [] Eyes: PERRLA, EOMI, conjunctiva normal, no discharge. [] Neck: Normal range of motion, no tenderness, supple, no stridor. [] Cardiovascular: Tachycardia heart rate regular rhythm, no murmur [] Lungs & Thorax: Bilateral breath sounds equal apex auscultation. Has [] large area 16 x 16 cellulitis with a central area of an abscess or infected cyst. Just under lower Lt. breast cleavage. Abdomen: Bowel sounds normal, soft, no tenderness, no masses, no pulsatile masses. Obese. Old surgery scars. Skin: Warm, dry, no erythema, no rash. [] Back: No tenderness, no CVA tenderness. [] Extremities: No tenderness, no cyanosis, no clubbing, ROM intact, trace ankle edema. [] Neurologic: Alert and oriented X 3, normal motor function, normal sensory function, no focal deficits noted. [] Psychologic: Affect , judgement normal, mood normal. [] EKG: EKG: [] Radiology/Procedures: Radiology/Procedures: [] Heart Score: C/O Chest Pain: N/A Risk Factors: Risk Factors: DM, Current or recent (<one month) smoker, HTN, HLP, family history of CAD, obesity. Risk Scores: Score 0 - 3: 2.5% MACE over next 6 weeks - Discharge Home Score 4 - 6: 20.3% MACE over next 6 weeks - Admit for Clinical Observation Score 7 - 10: 72.7% MACE over next 6 weeks - Early Invasive Strategies Course & Med Decision Making: Course & Med Decision Making Pertinent Labs and Imaging studies reviewed. (See chart for details) Procedure note-area cleaned with Betadine. Discussed benefits and complications of incision and drainage. Patient must follow-up. Consider ultimately a incisional removal of cyst or abscess. Patient stuck with a 15 blade x1 with removal of a 30 cc amount of purulent foul-smelling pus and then blood. 1 inch packing placed in wound to be removed in 3 days. Keep follow-up primary care. Patient given 1 g of Rocephin IM as well as started on Bactrim DS to be taken twice a day. Patient monitor blood sugars. Patient follow-up for primary care or dermatology. Suspect you will need complete incisional biopsy and possibly cytology as indicated. Return if any concerns. Tylenol and ibuprofen for discomfort and fever. Impression: 1. Infected Cysts. Lt. breast cleavage [] Dragon Disclaimer: Dragon Disclaimer: This electronic medical record was generated, in whole or in part, using a voice recognition dictation system. Departure Departure: Referrals: KATERINA MUIR MD (PCP) Scripts Sulfamethoxazole/Trimethoprim (BACTRIM DS TABLET) 1 Each Tablet 1 TAB PO BID for cellulitis, uti hx for 10 Days, #20 TAB 0 Refills Prov: WILLIAM FINE MD 08/09/21 Incision and Drainage Indication: [INDICATION:] Procedure: The patient was positioned appropriately and the skin over the incision site was [PREP FOR PROCEDURE:]. Local anesthesia was [ANESTHESIA:]. An incision was then made over the [INCISION SITE:] and [DRAINAGE AMT:] material was expressed. Loculations were [LOCULATIONS:]. The drainage cavity was then [CAVITY DISP:]. The patients tetanus status [TETANUS STATUS:]. The patient tolerated the procedure [TOLERATED:]. Complications: [COMPLICATIONS:] Dragon Disclaimer This chart was dictated in whole or in part using Voice Recognition software in a busy, high-work load, and often noisy Emergency Department environment. It may contain unintended and wholly unrecognized errors or omissions. Dragon Disclaimer This chart was dictated in whole or in part using Voice Recognition software in a busy, high-work load, and often noisy Emergency Department environment. It may contain unintended and wholly unrecognized errors or omissions. WILLIAM FINE MD Aug 09, 2021 18:08
[2021-08-09] MEDS ORDERED: cefTRIAXone IM 1 GM VIAL IM ONE (18:45)
[2021-08-09] MEDS ORDERED: SMZ/TMP 800/160MG TABLET. PO ONE (18:45)
[2021-08-09] MEDS ORDERED: DIPHTH,PERTUSS(ACELL),TET TOX 0.5 ML DISP.SYRIN. VAX IM ONE (18:45)
[2021-08-09] MEDS ORDERED: SULF1TAB24 PO (18:53)
[2021-08-09 19:08] VITALS: BP 150/80
== END 2021-08-09 19:09 | disposition home or self-care (01) ==
LOC: ER 16:47
DX: N60.02 Solitary cyst of left breast (principal); M19.90 Unspecified osteoarthritis, unspecified site; E11.40 Type 2 diabetes mellitus with diabetic neuropathy, unspecified; I10 Essential (primary) hypertension; K21.9 Gastro-esophageal reflux disease without esophagitis; E78.00 Pure hypercholesterolemia, unspecified; E78.5 Hyperlipidemia, unspecified
CPT/HCPCS: 10060; 90471; 90715; 96372; 99284; J0696